=== PATIENT | female | born 1960 | race Caucasian/White ===

== ENCOUNTER 2016-03-08 18:47 | Inpatient (IN) | payer OTHER ==
[2016-03-08] MEDS ORDERED: Lidocaine 2% VISCOUS* 15 ML UDC PO ONE (20:18)
[2016-03-08] MEDS ORDERED: Morphine INJ* 4 MG/ML 1 ML CARPUJECT IV ONE (20:20)
[2016-03-08] MEDS ORDERED: Ondansetron INJ* 2 MG/ML VIAL IV PRN (20:25)
[2016-03-08] MEDS ORDERED: Piperac/Tazob 3.375 gm in NS* 3.375 GM/100 ML BAG IVPB ONE (20:31)
[2016-03-08] MEDS: NS 0.9% 1000 ML* 1,000 ML IV ONE (21:18)
[2016-03-09] MEDS: HYDROmorphone INJ* 1 MG/ML CARPUJECT SYRINGE IV PRN ×2 (04:16→10:32)
[2016-03-09] MEDS: NS 0.9% 1000 ML* 1,000 ML IV SCH (07:00)
[2016-03-09 07:23] LABS: Hematocrit 35 % (35-47); Hemoglobin 11.3 g/dl (12.0-16.0); Mean Corpuscular HGB Conc 32 g/dl (31-36); Mean Corpuscular Hemoglobin 26 pg (27-31); Mean Corpuscular Volume 79 fL (80-97); Mean Platelet Volume 7 um3 (7.4-10.4); Red Blood Count 4.44 10^6/ul (4.0-5.4); Red Cell Distribution Width 17 % (10.5-15); White Blood Count 13.9 10^3/ul (3.5-10.8)
[2016-03-09 07:51] LABS: BUN/Creatinine Ratio 28.6 (8-20); Calcium 7.7 mg/dL (8.6-10.3); EGFR Non-African American 130.6 (>60); Potassium 3.2 mmol/L (3.5-5.0)
[2016-03-09] MEDS: Piperac/Tazob 3.375 gm in NS* 3.375 GM/100 ML BAG IVPB SCH ×3 (08:43→20:31)
[2016-03-09] MEDS ORDERED: Influenza VAC *QUAD* 2016-17* 0.5 ML SYRINGE IM ONE (09:00)
--- NOTE | 2016-03-09 10:54 | HP ---
CC: [facility] DATE OF ADMISSION: 03/09/2016. CHIEF COMPLAINT: Abdominal pain, nausea and vomiting. HISTORY OF PRESENT ILLNESS: The patient is a 55-year-old female who has usually been in fairly good health, who presented to the [facility] with approximately one week of nausea and vomiting. She had had intermittent diarrhea through that period as well. She has had abdomina l cramping and bloating. She has not had an accident, injury or trauma. She does not have a history of chronic abdominal problems. Nothing like that runs in the family either. No one else at home i s similarly ill. PAST MEDICAL HISTORY: Benign. No chronic medical illness. PAST SURGICAL HISTORY: She has had sections in the past without complication. MEDICATIONS: She denies regular medication. ALLERGIES: SHE QUOTES AN ALLERGY TO ERYTHROMYCIN. It happened a long time ago, she does not know w hat the reaction was, but does not think it was anaphylaxis or anything that serious. FAMILY HISTORY: Reveals no Crohn's disease or other GI problems. No bleeding tendencies or anesthe fredy reactions. No major chronic medical illnesses. SOCIAL HISTORY: She is and is currently a nonsmoker, but did smoke years ago. She is not a n alcohol drinker. She does not use any drugs or illicit substances. REVIEW OF SYSTEMS: Multiple system review is negative for any heart pain, chest pain, angina pain, or irregular heart beat. No emphysema, bronchitis, or other chronic lung disease. No hepatobiliary disease. No diabetes, thyroid, or other endocrine. No major GI history. No Crohn's disease, coli tis, or anything of the sort. No major history, other than the sections. She does admi t to having had abscesses in the anal area. She had one drained at [place] several months ago. She h as had recurrent abscesses there, most of which have spontaneously drained some fluid, although of l ate it has not been painful for draining any kind of pus. She denies any neuro, psych, or musculosk eletal issues. PHYSICAL EXAMINATION GENERAL: She is a well-developed, well-nourished appearing female consistent with stated age. She does not appear acutely ill. SKIN: Warm and well-perfused. She is not diaphoretic. She is not jaundiced. VITAL SIGNS: Temperature 98, pulse 89 and regular, respirations 16 unlabored, O2 saturation 96 perc ent, blood pressure 103/54. NECK: Without adenopathy. LUNGS: Clear bilaterally. HEART: Regular. I do not appreciate any abnormal sounds. ABDOMEN: Slightly distended, soft, minimally diffusely tender, not very impressive at all. She wong s have a nasogastric tube that has been in place all night. EXTREMITIES: Well-perfused and without edema. RECTAL: In the perianal area, she does not have any sign of abscess or inflammation, but one can se en on the right side the site of previous drainage. LABORATORY STUDIES: Reveal that her white blood count was elevated at 23,000 at [facility], it is down to 14,000 this morning. She has slightly microcytic indices and she does have a left sh ift. Her electrolytes are relatively normal. Her potassium is slightly decreased at 3.2 and her ayan al function is normal. Her liver chemistries at [facility] were normal. Her urinalysis at [facility] showed a few blood cells and was dip positive for bilirubin and some bacteria. Blo od cultures were sent and lactic acid was 1.2. I have reviewed her CT scan which shows evidence of a small bowel obstruction with a transition point in the terminal ileum. There is inflammatory guzmán ge in that region and what appears to be a fistulous tract extending down the right perianal area. IMPRESSION: Mxctl-boj-gsoa-old female with evidence of small bowel obstruction ongoing for more lolita n a week now with a longer standing perianal abscess and an apparent fistula from the region of the terminal ileum. I have concerned about the possibility of this being Crohn's disease, although appendicitis is also within the differential. I did discuss the case with Dr. Kervin Zaragoza, who will see her in consultation regarding potential Crohn's disease; however, I think she will need a laparotomy to relieve the bowel obstruction and in itiate therapy and make a diagnosis. [id number]/[facility] #: [id number]
--- NOTE | 2016-03-09 12:47 | CONS ---
GASTROENTEROLOGY CONSULT: DATE: 03/09/16 - ROOM #ICU-09 REFERRING PHYSICIAN: Jayesh Rowley* REASON FOR CONSULT: A 55-year-old woman with 9 days of nausea and vomiting and diarrhea, presenting to the [facility] with small bowel obstruction and a draining right perianal fistula with suspected Crohn's disease. HISTORY: This 55-year-old woman started having vomiting and diarrhea concurrently around 9 days ago. There was no fever and no bleeding. She did feel flushed and feverish one night but that passed. She did not seek any medical attention until last night and she felt weak. She last had a bowel movement 3 days ago. She has not passed any gas since then. She continued vomiting. She went to the [facility] and CT scan showed a transition point in the terminal ileum. There is no obvious abscess. That study is being sent over but has not yet been reviewed. She states her usual bowel pattern is every other day and sometimes she will go 3 or 4 days and generally just deals with it by drinking extra fluids. She is on a low carb diet to help her lose weight. There are no other exclusions. She has never had anything like this before and specifically denies any vomiting episodes before. She did develop a swelling in her right buttock 6 months ago and went to the [place] where it was lanced. She was given 10 days of antibiotics but did not seek any followup care. PAST MEDICAL HISTORY: 1. Ex-smoker - quitting 10 years ago. 2. Status post C-sections x3; 29, 28, and 18 years ago. FAMILY HISTORY: No history of bowel disease she is aware of. Father was a smoker, had bladder cancer and of lung cancer. Her mother is alive and well. SOCIAL HISTORY: She is , is trying to help her lose weight. 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 She has three siblings and she is the second of four. REVIEW OF SYSTEMS: She has not had a primary physician. She said she has always been fine. No history of skin problems, neurologic issues, palpitations , syncope, chest pain, chronic heartburn, weight loss, hemoptysis, bleeding difficulties or urinary difficulties. PHYSICAL EXAM: She is a slender, middle-aged woman with an NG tube in place, afebrile. She has no adenopathy. Skin appears normal. HEENT exam is unremarkable. Her lungs are clear and heart sounds are regular. Breast and pelvic exams are deferred. The abdomen is symmetric, mildly rounded, fairly silent, no bowel sounds heard. The NG tube is in place. The abdomen is firm but without focal tenderness or guarding. With an aide present, perianal inspection shows bloody purulent liquid apparently emanating from a fistula, it is open about 5 to 6 cm lateral to the anal verge on the right. There is no fluctuance or swelling there. There is a small 1-cm skin tag at the anal opening. Digital rectal is tolerated well and the rectum is full of soft stool , medium brown, and an area from the middle submitted for Hemoccult. Rectal is limited as rectum is full. Extremities show no abnormality. DIAGNOSTIC STUDIES/LAB DATA: CT scan - review is pending. Labs - in the [facility], white count 22, hemoglobin 14.2, hematocrit 43, MCV 78, platelets 633. Albumin 2.8. Transaminases normal. AST 18, ALT 14, bilirubin 0.6, alkaline phosphatase 105. BUN 33, creatinine 0.9. Sodium 126. IMPRESSION: This 55-year-old woman presented to the [facility] with a 9-day illness marked by nausea and vomiting. She was profoundly dehydrated with a low sodium and an anemia, which is microcytic, and likely will be much lower after rehydration. Iron deficiency with anemia of chronic disease in combination suspected and w/u can be pursued in detail after this bowel obstruction dealt with. An NG tube has been placed and she is doing better in regards to nausea and vomiting but still has passed nothing from below and is thus still obstructed. Given that this was preceded by perianal abscess 6 months ago, the suspicion this represents a Crohn's disease is quite likely true. A right hemicolectomy is under consideration and would probably serve her well. She is not clearly disposed to proactive medical care and medical treatment measures, that would require careful and frequent followup, are not likely to be effective short or residential. [id number]/[facility] #: [id number] [facility]
[2016-03-09] MEDS ORDERED: fentaNYL* 50 MCG/ML 2 ML VIAL (100 MCG VIAL) ONE (13:30)
[2016-03-09] MEDS ORDERED: Midazolam* 1 MG/ML 5 ML VIAL (5 MG) ONE (13:30)
[2016-03-09] MEDS ORDERED: Sodium Bicarbonate 8.4% SYR* 10 ML SYRINGE ONE (14:46)
[2016-03-09] MEDS ORDERED: Phenylephrine IV* 40 MCG/ML 10 ML SYRINGE ONE (14:46)
[2016-03-09] MEDS ORDERED: Lidocaine 2% EPI 1:200000 MPF* 20 ML VIAL ONE (14:46)
[2016-03-09] MEDS ORDERED: Ketorolac INJ* 15 MG/ML 1 ML VIAL IV PRN (14:48)
[2016-03-09] MEDS ORDERED: DiMENhydriNATE IV* 50 MG/ML VIAL IV PUSH PRN ×2 (14:48→14:54)
[2016-03-09] MEDS ORDERED: fentaNYL* 50 MCG/ML 2 ML VIAL (100 MCG VIAL) IV PRN (14:54)
[2016-03-09] MEDS ORDERED: EPHEDrine (Pressors)* 50 MG/ML VIAL ONE (14:56)
[2016-03-09] MEDS ORDERED: Ropivacaine 0.2% EPIDURAL* 200 MG/100 ML BAG EPIDURAL SCH (15:00)
[2016-03-09] MEDS ORDERED: Ropivacaine 0.2% EPIDURAL* 200 MG/100 ML BAG EPIDURAL ONE (16:19)
[2016-03-09] MEDS ORDERED: DiMENhydriNATE IV* 50 MG/ML VIAL ONE (16:51)
[2016-03-09] MEDS ORDERED: Ketorolac INJ* 30 MG/ML 1 ML VIAL ONE (16:54)
[2016-03-09] MEDS: Ketorolac INJ* 30 MG/ML 1 ML VIAL IV SCH (16:55)
[2016-03-09] MEDS ORDERED: NS 0.9% 1000 ML* 1,000 ML IV ONE (18:20)
[2016-03-09] MEDS ORDERED: Hetastarch 6%* GIVE 500 ML IV ONE (20:00)
[2016-03-10] MEDS: NS 0.9% 1000 ML* 1,000 ML IV SCH ×4 (01:10→20:29)
--- NOTE | 2016-03-10 02:06 | OP ---
CC: Jayesh Rowley MD; Kervin Zaragoza MD; [facility] OPERATIVE REPORT: DATE OF OPERATION: 03/09/16 DATE OF : 58 SURGEON: Jayesh Rowley MD APARTMENT RENTAL CLERK: ADITYA Harris ANESTHESIOLOGIST: Dr. Escobar. ANESTHESIA: General and epidural anesthesia. PRE-OP DIAGNOSIS: Small bowel obstruction with enterocutaneous fistula. POST-OP DIAGNOSIS: Small bowel obstruction with enterocutaneous fistula. OPERATIVE PROCEDURE: Laparotomy, resection of ileocolon with anastomosis, takedown of enterocutaneous fistula, peritoneal lavage, and exploration of external fistulous tract. DESCRIPTION OF PROCEDURE: The patient was supine on the operating room table. After adequate general and epidural anesthesia, compression stockings, Gómez Hugger warmer, and intravenous antibiotics were already given; examination of the perineum revealed an external fistulous opening to the right of the anal canal. This was opened up at the skin to about 2 cm across with copious purulent fluid forthcoming. It was purulent and stool stained. Exploration digitally revealed that the tract went in about 8 cm with a width of over a centimeter and then hard fibrotic region was encountered. There was also an exit site on the mid right thigh posteriorly overlying the hamstring. It was 1 cm exit site, which appeared to be an additional fistulous opening. This extended in only about 2 cm. After doing this, the patient was kept supine and the abdomen was prepped with antiseptic and draped in a sterile fashion. A midline incision was created from just above the pubis to just above the umbilicus. Dilated small bowel to about 6 cm was identified and this was exteriorized and there was a loop of small bowel down into the pelvis adherent into a dense fibrotic mass, which appeared to be the source of the obstruction. This was maybe 8 cm from the ileocecal valve. The intervening segment was inflamed and thick walled. The ileocecal valve region was thick walled and inflamed, but the lateral aspect of the cecum was perfectly normal. Normal appendix was identified. This was adherent down to the tube and ovary, which were taken off the inflammatory mass. The inflammatory mass was peeled out of the pelvis. Right ureter was examined and was out of harm's way. There appeared to be a perforation at the region of the ileocecal valve. The terminal ileum was quite thickened and edematous. They did not have the typical creeping fat of Crohn disease. Mesentery was quite thickened and with enlarged adenopathy. It was not sure what the underlying pathology was, but it was felt that ileocecal resection was warranted. The right colon was mobilized all the way up to the hepatic flexure. The site of resection beyond the hepatic flexure was identified. This was chosen based on the vascularity. The bowel was divided with a CLIFTON stapler. Mesentery was incrementally clamped, cut , and ligated. The large vessels being suture ligated. The very terminal ileum even proximal to the area of obstruction was congested and purple and it was felt that the mesentery there was thickened and enlarged, was maybe occluding some venous return into the ileocolic vessels. Therefore, approximately 20 to 30 cm of small bowel was resected to an area that appeared to have good vascularity. Anastomosis was created using CLIFTON 80 stapler. Note that the small bowel was suctioned out to relieve some of the distention prior to creating an anastomosis. The resultant anastomosis was closed with a TA 60 blue stapler. The corners were tucked in with 3-0 silk sutures, which were also used to reinforce the healed anastomosis. The mesentery was closed with 3- 0 Vicryl. Copious irrigation with about 3 L of warm saline solution was carried out. The operative field was nicely hemostatic. Free fluid was suctioned out and tongue of omentum was mobilized from the splenic flexure across to the middle colic region and tongue of omentum was mobilized down towards the pelvis. This was tucked in adjacent to the sigmoid colon and down behind the uterus into the area, where the suspected fistula was. The fistula could not directly be visualized. Everything in that region was just densely fibrotic. The sigmoid colon was adherent down over the cecum into this area, but did not seem to be the primary source of the problem rather seem to be an innocent bystander, just being inflamed and adherent on its right posterior aspect. The remainder of the sigmoid looked pristine. Therefore, this was not dissected up. It was left adherent down over the sacrum. Everything was in good position. Omentum was used to cover the bowel as well for closure. Midline fascia was closed using running #1 Polysorb. Adipose was well irrigated and skin closed with nabeel, followed by sterile dressing. She tolerated the procedure well was awakened and brought to the recovery in good condition. There were no complications and no drains. Pathologic specimen is ileocolic resection. Sponge and instrument counts correct. Estimated blood loss 100 mL. [id number]/[facility] #: [id number] [facility]
[2016-03-10] MEDS: HYDROmorphone INJ* 1 MG/ML CARPUJECT SYRINGE IV PRN ×6 (03:00→20:30)
[2016-03-10] MEDS: Ketorolac INJ* 30 MG/ML 1 ML VIAL IV SCH ×2 (03:12→09:16)
[2016-03-10] MEDS: Piperac/Tazob 3.375 gm in NS* 3.375 GM/100 ML BAG IVPB SCH ×4 (03:15→21:16)
[2016-03-10] MEDS: EPHEDrine (Pressors)* 50 MG/ML VIAL IV PUSH PRN ×2 (04:37→04:58)
[2016-03-10] MEDS ORDERED: HETASTARCH 6% IV PRN (05:10)
[2016-03-10 05:35] LABS: Hematocrit 35 % (35-47); Hemoglobin 11.1 g/dl (12.0-16.0); Mean Corpuscular HGB Conc 32 g/dl (31-36); Mean Corpuscular Hemoglobin 25 pg (27-31); Mean Corpuscular Volume 81 fL (80-97); Mean Platelet Volume 8 um3 (7.4-10.4); Red Blood Count 4.36 10^6/ul (4.0-5.4); Red Cell Distribution Width 17 % (10.5-15); White Blood Count 12.4 10^3/ul (3.5-10.8)
[2016-03-10 05:36] LABS: Add Diff/Slide Review? Slide Review Added; Comments Flag Yes
[2016-03-10 05:50] LABS: BUN/Creatinine Ratio 22.5 (8-20); Calcium 6.8 mg/dL (8.6-10.3); EGFR African American 109.5 (>60); EGFR Non-African American 85.2 (>60); Potassium 3.1 mmol/L (3.5-5.0)
[2016-03-10 06:08] LABS: Immature Granulocytes 29 % (0-9); Myelocytes % 1 % (0-1); Neutrophil % 63 % (38-83); RBC Morphology Normal (Normal); Reactive Lymph % 2 % (0-6)
--- NOTE | 2016-03-10 08:39 | PN ---
Progress Note - Progress Note SOAP: Subjective: Pt seen and examined. Case reviewed, including CT and labs. Overnight events noted. Positive appetite. poor U/o; received multiple boluses. Remains tachycardic. Epidural held. Objective: AF tachycardic, hypostensive A and o x 3 lungs decre BS b/l abdo: soft/mild distension/ minimal tenderness. dressing cdi no calf tenderness labs noted Assessment: POD1 ex lap R colectomy, oliguric, hypotensive. volume depletion vs sepsis Plan: ice chips OOB, IS GI, DVT prop labs in am
[2016-03-11] MEDS ORDERED: NS 0.9% 1000 ML* 1,000 ML IV ONE ×2 (01:00→03:45)
[2016-03-11] MEDS: NS 0.9% 1000 ML* 1,000 ML IV SCH ×2 (01:18→05:08)
[2016-03-11] MEDS: Piperac/Tazob 3.375 gm in NS* 3.375 GM/100 ML BAG IVPB SCH ×3 (02:53→18:15)
[2016-03-11 04:31] LABS: Hematocrit 36 % (35-47); Mean Corpuscular HGB Conc 31 g/dl (31-36); Mean Corpuscular Hemoglobin 25 pg (27-31); Mean Corpuscular Volume 81 fL (80-97); Mean Platelet Volume 8 um3 (7.4-10.4); Red Cell Distribution Width 17 % (10.5-15); White Blood Count 12.2 10^3/ul (3.5-10.8)
[2016-03-11 04:33] LABS: Add Diff/Slide Review? Slide Review Added; Comments Flag Yes
[2016-03-11 04:42] LABS: BUN/Creatinine Ratio 36.2 (8-20); Calcium 6.7 mg/dL (8.6-10.3); EGFR African American 138.3 (>60); EGFR Non-African American 107.5 (>60); Potassium 4.2 mmol/L (3.5-5.0)
[2016-03-11 04:59] LABS: Immature Granulocytes 51 % (0-9); Metamyelocytes % 6 % (0-2); Myelocytes % 3 % (0-1); Neutrophil % 41 % (38-83); Reactive Lymph % 1 % (0-6)
[2016-03-11 05:00] LABS: Burr Cells 2+; Toxic Granulation 1+
[2016-03-11] MEDS: HYDROmorphone INJ* 1 MG/ML CARPUJECT SYRINGE IV PRN (05:39)
[2016-03-11] MEDS ORDERED: Metoprolol Tartrate IV* 1 MG/ML 5 ML VIAL IV ONE (06:05)
[2016-03-11 06:45] LABS: Hematocrit 36 % (35-47); Hemoglobin 11.3 g/dl (12.0-16.0); Mean Corpuscular HGB Conc 31 g/dl (31-36); Mean Corpuscular Hemoglobin 26 pg (27-31); Mean Corpuscular Volume 81 fL (80-97); Mean Platelet Volume 8 um3 (7.4-10.4); Red Blood Count 4.41 10^6/ul (4.0-5.4); Red Cell Distribution Width 17 % (10.5-15)
[2016-03-11 07:00] LABS: Add Diff/Slide Review? Manual Diff Added; Comments Flag Yes
[2016-03-11 07:06] LABS: ALT 16 U/L (7-52); AST 29 U/L (13-39); Alkaline Phosphatase 52 U/L (34-104); Anion Gap 7 mmol/L (2-11); BUN/Creatinine Ratio 35.6 (8-20); Blood Urea Nitrogen 21 mg/dL (6-24); CO2 Carbon Dioxide 19 mmol/L (22-32); Chloride 113 mmol/L (101-111); EGFR African American 135.6 (>60); EGFR Non-African American 105.4 (>60); Magnesium 1.1 mg/dL (1.9-2.7); Potassium 4.4 mmol/L (3.5-5.0); Sodium 139 mmol/L (133-145); Total Protein < 3.0 g/dL (6.4-8.9)
[2016-03-11 07:18] LABS: Albumin 1.3 g/dL (3.2-5.2); Calcium 6.4 mg/dL (8.6-10.3); Globulin 1.7 g/dL (2-4); Glucose 38 mg/dL (70-100)
[2016-03-11] MEDS ORDERED: Magnesium Sulf 4 GM/100 ML IV* 4,000 MG/100 ML BAG IVPB ONE ×2 (07:30→13:00)
[2016-03-11] MEDS: D5NS 0.9% 1000 ML BAG* 1,000 ML IV SCH ×2 (07:34→13:48)
[2016-03-11 08:19] LABS: PCO2 Arterial 34 mmHg (35-45)
[2016-03-11] MEDS: metroNIDAZOLE IV 500 MG/100ML* 500 MG/100 ML BAG IVPB SCH ×2 (08:36→21:33)
[2016-03-11 08:43] LABS: Urine Bacteria Absent (Absent); Urine Bilirubin 2+ (Negative); Urine Glucose Negative (Negative); Urine Nitrite Negative (Negative)
[2016-03-11 09:47] LABS: Fibrinogen 531 mg/dL (110.8-404.3); Schistocytes ABSENT
[2016-03-11] MEDS ORDERED: Phytonadione INJ (Adult)* 10 MG/ML 1 ML AMP IV ONE (10:11)
--- NOTE | 2016-03-11 10:21 | PN ---
Progress Note - Progress Note SOAP: Subjective: Pt seen and examined. 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 Hospitalist service consulted. She is fatigued. No flatus, no BM in 24hrs, positive burping, no appetite. Pt has received approx 20L in 3days. Pt states she hasn't eaten anything for 10 days. SHe c/o SOB, fatigue, but no abdominal pain. Hospitalist has ordered FFP for elevated INR; pt will be transferred to ICU. Objective: Temp Pulse Resp BP Pulse Ox 97.7 F 142 38 115/66 97 03/11/16 07:26 03/11/16 07:26 03/11/16 07:30 03/11/16 07:26 03/11/16 07:26 on O2 NC Intake & Output 03/09/16 03/10/16 03/11/16 03/12/16 06:59 06:59 06:59 06:59 Intake Total 1281 38200 7789 Output Total 600 800 485 Balance 681 16691 7304 Weight 135 lb Intake: IV Fluids 1063 06323 6793 Hetastarch 500 LR 5200 LR with 40KCl 3012 NS 3933 3781 IVPB 218 100 426 ABX - ZOSYN 109 100 426 Oral 0 0 570 Output: NG Tube Drainage Amount 150 150 Urine 450 380 Sommer 270 485 Other: # Bowel Movements 0 a and o x 3, mild respiratory distress. lungs decreased BS b/l abdo: soft/distended, tender on deep palpation over incision and RLQ dressing removed, no erythema Rectal: pos stool, no masses, nontender Packing replaced at 2 abscess cavities (no evidence of undrained collections no calf tenderness, well perfused, edematous Labs noted CT: 03/09 reveiwed again with radiologist; rectosigmoid wnl Assessment: POD 2 R hemicolectomoy, path pending, lonstanding perirectal abscesses; third spacing, malnutrition. Sepsis Plan: transfer to ICU triple lumen cath strict I/os wound care NPO, posible NGT if vomits consider TPN abx
[2016-03-11] MEDS ORDERED: Phytonadione INJ (Adult)* 10 MG in NS 0.9% 50 ML* 50 ML IV ONE (11:00)
[2016-03-11 11:13] LABS: Albumin 2.5 g/dL (3.2-5.2); Direct Bilirubin 0.1 mg/dL (0.03-0.18); Globulin 2.9 g/dL (2-4); Indirect Bilirubin 0.3 mg/dL (0.3-1.0); Magnesium 1.8 mg/dL (1.9-2.7); Total Bilirubin 0.4 mg/dL (0.2-1.0); Total Protein 5.4 g/dL (6.4-8.9)
[2016-03-11] MEDS ORDERED: Thiamine IV* 100 MG/ML 2 ML VIAL IV ONE (12:37)
[2016-03-11] MEDS ORDERED: Cyanocobalamin INJ * 1,000 MCG/ML VIAL 1 ML VIAL IM ONE (13:00)
--- NOTE | 2016-03-11 13:17 | CONSULT ---
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 Underwent resection of ileocolon with primary anastamosis and take down of enterocutaneous fistula. She remains tachy in post operative setting and has recieved considerable amount of IVF to no avail. Today her labs revealed significant synthetic liver failures and she remains tachycardic and tachypnic and was transferred to ICU. REVIEW OF SYSTEMS: As per HPI. Currently pt feeling fatigued, but acute in ok spirits; no pain just feels sore. Breathing does feel shallow. PAST MEDICAL HISTORY: As per HPI. MEDICATIONS: Reviewed. ALLERGIES: Erythromycin SOCIAL HISTORY: , quit tobacco previously, actually healthy diet habits. FAMILY HISTORY: Noncontributory at present. PHYSICAL EXAM: nontoxic appearing Vital Signs: Reviewed. HR 143. SBP 150s. RR up to 30. afeb Neurologic: communicating, nonfocal. HEENT: anicteric, mm dry, thin face. Cardiovascular: dtachy, no appreciable m Respiratory: rapid and shallow but otherwise would have normal phase ratio Abdomen: anasacra; incision clean and looks healthy. no masses Extremities: significant edema, especially in thighs Access: per LABS: Reviewed. Laboratory Last Values WBC 13.0 10^3/ul (3.5-10.8) H 03/11/16 06:08 RBC 4.41 10^6/ul (4.0-5.4) 03/11/16 06:08 Hgb 11.3 g/dl (12.0-16.0) L 03/11/16 06:08 Hct 36 % (35-47) 03/11/16 06:08 MCV 81 fL (80-97) 03/11/16 06:08 MCH 26 pg (27-31) L 03/11/16 06:08 MCHC 31 g/dl (31-36) 03/11/16 06:08 RDW 17 % (10.5-15) H 03/11/16 06:08 Plt Count 234 10^3/ul (150-450) 03/11/16 06:08 MPV 8 um3 (7.4-10.4) 03/11/16 06:08 Immature Gran % (Auto) 51 % (0-9) H 03/11/16 04:23 Neut % (Auto) 97.2 % (38-83) H 03/11/16 06:08 Lymph % (Auto) 2.3 % (25-47) L 03/11/16 06:08 [place] % (Auto) 0.4 % (1-9) L 03/11/16 06:08 Eos % (Auto) 0 % (0-6) 03/11/16 06:08 Baso % (Auto) 0.1 % (0-2) 03/11/16 06:08 Absolute Neuts (auto) 12.9 10^3/ul (1.5-7.7) H 03/11/16 06:08 Absolute Lymphs (auto) 0.3 10^3/ul (1.0-4.8) L 03/11/16 06:08 Absolute Monos (auto) 0 10^3/ul (0-0.8) 03/11/16 06:08 Absolute Eos (auto) 0 10^3/ul (0-0.6) 03/11/16 06:08 Absolute Basos (auto) 0 10^3/ul (0-0.2) 03/11/16 06:08 Absolute Nucleated RBC 0.01 10^3/ul 03/11/16 06:08 Neutrophils % 41 % (38-83) 03/11/16 04:23 Band Neutrophils % 42 % (0-8) H 03/11/16 04:23 Lymphocytes % 4 % (25-47) L 03/11/16 04:23 Reactive Lymphs % 1 % (0-6) 03/11/16 04:23 Monocytes % 3 % (0-13) 03/11/16 04:23 Metamyelocytes % 6 % (0-2) H 03/11/16 04:23 Myelocytes % 3 % (0-1) H 03/11/16 04:23 Nucleated RBC % 0 03/11/16 06:08 Toxic Granulation 1+ 03/11/16 04:23 Normal RBC Morphology Not Reportable 03/11/16 04:23 Angel Cells 2+ 03/11/16 04:23 Schistocytes Absent 03/11/16 06:09 Hem Pathologist Commnt Cancelled 03/11/16 04:23 Plt Count 234 10^3/ul (150-450) 03/11/16 06:09 INR (Anticoag Therapy) 4.25 (0.89-1.11) H 03/11/16 06:09 APTT 66.7 seconds (26.0-36.3) H 03/11/16 06:09 Fibrinogen 531 mg/dL (110.8-404.3) H 03/11/16 06:09 D-Dimer, Quantitative > 1050 ng/mL (Less Than 230) H 03/11/16 06:09 ABG pH 7.30 (7.35-7.45) L 03/11/16 08:10 ABG pCO2 34 mmHg (35-45) L 03/11/16 08:10 ABG pO2 97 mmHg (80-100) 03/11/16 08:10 ABG HCO3 18.1 mmol/L (19-31) L 03/11/16 08:10 ABG O2 Saturation 96.3 % (95-98) 03/11/16 08:10 ABG Base Excess -8.8 (-2.0-2.0) L 03/11/16 08:10 Sodium 139 mmol/L (133-145) 03/11/16 06:08 Potassium 4.4 mmol/L (3.5-5.0) 03/11/16 06:08 Chloride 113 mmol/L (101-111) H 03/11/16 06:08 Carbon Dioxide 19 mmol/L (22-32) L 03/11/16 06:08 Anion Gap 7 mmol/L (2-11) 03/11/16 06:08 BUN 21 mg/dL (6-24) 03/11/16 06:08 Creatinine 0.59 mg/dL (0.51-0.95) 03/11/16 06:08 Est GFR ( Amer) 135.6 (>60) 03/11/16 06:08 Est GFR (Non-Af Amer) 105.4 (>60) 03/11/16 06:08 BUN/Creatinine Ratio 35.6 (8-20) H 03/11/16 06:08 Glucose 38 mg/dL (70-100) L* 03/11/16 06:08 POC Glucose (mg/dL) 88 mg/dL (74-106) 03/11/16 08:57 Lactic Acid 2.5 mmol/L (0.5-2.0) H* 03/11/16 08:31 Calcium 6.4 mg/dL (8.6-10.3) L* 03/11/16 06:08 Phosphorus 3.0 mg/dL (2.5-5.0) 03/11/16 06:08 Magnesium 1.1 mg/dL (1.9-2.7) L 03/11/16 06:08 Iron 40 ug/dL (50-212) L 03/09/16 06:58 TIBC 176 mcg/dL (250-450) L 03/09/16 06:58 % Saturation 23 % (15-55) 03/09/16 06:58 Unsat Iron Binding 136 ug/dL 03/09/16 06:58 Total Bilirubin 0.40 mg/dL (0.2-1.0) 03/11/16 06:08 Direct Bilirubin 0.10 mg/dL (0.03-0.18) 03/09/16 06:58 Indirect Bilirubin 0.3 mg/dL (0.3-1.0) 03/09/16 06:58 AST 29 U/L (13-39) 03/11/16 06:08 ALT 16 U/L (7-52) 03/11/16 06:08 Alkaline Phosphatase 52 U/L (34-104) 03/11/16 06:08 Total Protein < 3.0 g/dL (6.4-8.9) L 03/11/16 06:08 Albumin 1.3 g/dL (3.2-5.2) L 03/11/16 06:08 Globulin 1.7 g/dL (2-4) L 03/11/16 06:08 Albumin/Globulin Ratio 0.8 (1-3) L 03/11/16 06:08 Vitamin B12 871 pg/mL (180-914) 03/09/16 06:58 Urine Color J[place]elin 03/11/16 08:10 Urine Appearance Cloudy 03/11/16 08:10 Urine pH 5.0 (5-9) 03/11/16 08:10 Ur Specific [place] 1.030 (1.010-1.030) 03/11/16 08:10 Urine Protein 1+(30 mg/dl) (Negative) H 03/11/16 08:10 Urine Ketones 1+ (Negative) H 03/11/16 08:10 Urine Blood 2+ (Negative) H 03/11/16 08:10 Urine Nitrate Negative (Negative) 03/11/16 08:10 Urine Bilirubin 2+ (Negative) H 03/11/16 08:10 Urine Urobilinogen Negative (Negative) 03/11/16 08:10 Ur Leukocyte Esterase Negative (Negative) 03/11/16 08:10 Urine WBC (Auto) 1+(6-10/hpf) (Absent) H 03/11/16 08:10 Urine RBC (Auto) 3+(>10/hpf) (Absent) H 03/11/16 08:10 Urine Bacteria Absent (Absent) 03/11/16 08:10 Urine Glucose Negative (Negative) 03/11/16 08:10 Blood Type A Positive 03/11/16 04:23 Antibody Screen Negative 03/11/16 04:23 IMAGING: Reviewed. MEDICATIONS: Reviewed. 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 Concern for severe prot-calorie nutritional deficiency, as well as vitamin/ mineral store losses, which would have been lost over time from her fistula, malabsorption, and metabolic consumption from chronic infection of low grade abscesses plus minus crohns dz (path pending). D/w pt and her PLAN: Neurologic: stable. pain control as need Cardiovascular: Receiving crystalloid still and ok for now, but given her degree of anasarca will look to back off this ultimately. Intravascular volume can be supplemented with FFP load now and see if we can make any progress. CAn add atc 25% albumin for now to see if we can utilize her interstitial volume. Ailment there is she is still seemingly in an Ebb phase and may remain with difficulty mobilizing compartments. Can 5% albumin if need be too. He tachycardia is going to remain but ensure adequate preload and see if we can't get it to remain under 130s today. Does appear sinus but there is not much variation and would repeat ECG post fluid to ensure this isn't atrial flutter or tach that may be otherwise amendable. Respiratory: Place on HFO2 to allieviate her wob which can certainly exacerbate her hr due to co demand. She is tolerating and compensating but has a long road ahead. Avoid atelectasis and resp fatigue. Abd volume also impeding diaphragmatic expansion. Lungs are not the primary insult. Gastrointestinal: does not seem to have an acute new surgical ailment that I can discern. No pain. Abd same, just ansarca. Did explain to her my worry for anastomotic breakdown and leak if we cannot support her nutrition and healing process and she is at risk for repeat surgeries but wouldn't pursue at present nor CT yet. Synthetic liver function quite deficient, transaminasis and bili fine, and therefore seeming less acute, and more ailment overtime due to deficiencies and if we can supplement Vit K, (likely to need B12 as well) magnesium large body deficit, dextrose and perhaps glucagon as well can correct her INR and glucose. However, it will take time to improve her protein store requirements, and would advocate picc and tpn (although wait on tpn till tomorrow given her acute stage of inflammation) and ultimately in combination with enteral needs to meet her metabolic demands. GI to f/u, with path pending, for potential crohns needs. Does not seem like a infammatory "flare" at this juncture but could consider steroid needs if it arises. Renal/Metabolic: Cr stable, but has considerable interstitial volume. Mag replete today IV. Can hold off on gtt, as corrected calcium not too deplete. f/ u vitamin needs. Would just give B12 and thiamine supplements. Follow Phos daily as at risk for refeeding syndrome. Infectious Disease: on zosyn and flagyl with great coverage. Again, doubt a new acute infection but certainly has some inflamation that will remain and need to support her metabolic and healing demands. Continue as is. Hematology: Unable to hemodilute post volume. Plt dropped due to consumption. Fibrinogen ok. Vit K, ffp and f/u INR tomorrow to ensure liver function. Endocrine: dextrose for now and f/u. Musculoskeletal: oob as able but going to be weak for now Psych/Social: Again pt and expressed understanding Supportive and preventative care as ordered. SUP: ppi VTE prophylaxis: SCDs currently Disposition: ICU Code Status: Full D/w Dr. Vasquez Critical Care Time: 45min F. Agustin Harman, DO
[2016-03-11] MEDS: Albumin Human 25%* 50 ML BTL IV SCH ×2 (13:47→21:42)
[2016-03-11] MEDS: Pantoprazole IV* 40 MG IV SCH (13:49)
--- NOTE | 2016-03-11 15:31 | RAD ---
INDICATION: Short of breath COMPARISON: None TECHNIQUE: An AP portable view obtained at 1500 hours is submitted. FINDINGS: Bones/Soft Tissues: There are no acute bony findings. Right-sided PICC catheter terminating in the superior vena cava Cardiomediastinal: The cardiomediastinal silhouette is normal. Lungs: The examination is expiratory with vascular crowding. There is perihilar infiltrative change. Pleura: There are bilateral effusions. Other: None IMPRESSION: EXPIRATORY EXAMINATION WITH PERIHILAR INFILTRATES AND BILATERAL PLEURAL EFFUSIONS.
[2016-03-11] MEDS ORDERED: D5NS 0.9% 1000 ML BAG* 1,000 ML IV SCH (15:42)
[2016-03-11] MEDS: Diltiazem DRIP* 100 MG/100 ML ADDV.BAG IVPB SCH (20:25)
[2016-03-11] MEDS ORDERED: Iohexol 350* (CONTRAST) 500 ML MDV IV ONE (21:53)
--- NOTE | 2016-03-11 22:39 | CONS ---
INPATIENT CONSULTATION REPORT: DATE OF CONSULT: 03/10/16 ATTENDING PROVIDER: Jayesh Rowley MD. PROVIDER REQUESTING CONSULTATION: Cornelius Vasquez MD, [facility] Surgical Services. REASON FOR CONSULT: Multiple lab derangements and concern for severe sepsis/ disseminated intravascular coagulation. HISTORY OF PRESENT ILLNESS/HOSPITAL COURSE: Please see the H and P by Dr. Jayesh Rowley and GI consultation by Dr. Kervin Zaragoza. In brief, Ms. Clifton is a 55- year-old lady with limited formal past medical history, although perhaps limited contact to the healthcare system who was transferred from [facility] to [facility] with abdominal pain, nausea, and vomiting, and a small bowel obstruction with enterocutaneous fistula. The patient was taken to surgery and had her terminal ileum resected with primary anastomosis and removal of an enterocutaneous fistula. The patient was consistently tachycardic and tachypneic in the postop setting with concerning labs including an INR of over 4 with a fairly precipitous drop in her albumin. The hospitalist group was asked for consultation. The patient herself was fairly asymptomatic, although she did feel subjectively short of breath at times. She denied any chest pain. She does complain of abdominal pain but not exquisitely and not out of proportion considering her recent surgery. The patient has multiple lab derangements including a profound leukocytosis with an approximately 50% bandemia as well as already-noted INR greater than 4 with an albumin that fell from 2.8 at admission to 1.3 this morning (over ~ 2 days) TThere was initial concern for disseminated intravascular coagulopathy (DIC) but a stat fibrinogen revealed no decrement in that lab, which essentially took that off the list. As this workup proceeded, an intensive care unit consultation was requested. The patient's antibiotics were urgently expanded with the addition of Flagyl on top of Zosyn. The patient is being aggressively hydrated but there is ongoing concern for poor urine output and possibly ongoing sepsis versus anasarca/third-spacing or some combination of the two. The patient is in agreement with transfer to the ICU for further consideration of these issues. PAST MEDICAL HISTORY: As per the HPI. MEDICATIONS: 1. Zosyn by pharmacy dosing - 3.375 four times daily. 2. Normal saline ongoing. 3. Status post hetastarch administration on March 09. ALLERGIES: ERYTHROMYCIN. FAMILY HISTORY: Noncontributory. SOCIAL HISTORY: . Remote history of tobacco, not active now. PHYSICAL EXAM: Vitals reviewed. Heart rate in the 130s to 150s. Breathing in the high 30s. Blood pressure low 100s/50s, high 90s on 2 L nasal cannula. In general, the patient is a chronically ill appearing woman who appears older than her stated age. HEENT: Oropharynx is clear. Mucous membranes are dry. Neck veins are flat. Chest is clear bilaterally. Abdomen: Appropriately tender postoperatively. Skin: Dry and intact. Abdomen: Has postop dressing. Extremities: Without clubbing or cyanosis, but edema is noted, but not massive. DIAGNOSTIC STUDIES/LAB DATA: White blood cell count is 12.2 with 97% neutrophilia with 42% bands, 6% metamyelocytes, and 3% myelocytes. Her hemoglobin is stable at 11, platelets have fallen from 415 down to 241. Her INR was previously unmeasured and came back today at 4.25. Her fibrinogen is actually elevated at 531 with an elevated D-dimer greater than 1000 and the remainder of her coagulation panel pending. Blood gas revealed pH of 7.30/pCO2 of 34/ pO2 of 97. Blood chemistries include bicarb of 19, glucose low at 38 with peripheral recheck at 88 following the initiation of D5, lactic acid 2.5, whole blood calcium 6.4 but albumin was 1.3, total protein less than 3, her magnesium was low at 1.1 and is being repleted, phosphorus is 3. Her LFTs as of March 09 were normal with an AST and ALT of 12 and 7, respectively. Her total bilirubin was 0.4. Iron studies show a 23% saturation with absolute level of 40. Total iron binding capacity is low at 1.76 consistent with low protein stores. Her urinalysis shows 1+ white blood cells, 3+ rbc's, 1+ protein (30 mg/dL). IMPRESSION: Ms. Clifton is 55-year-old female status post ileocolic resection, enterocutaneous fistula and suspected Crohn's disease who has had limited oral intake for 10 days and now has an array of lab findings that are quite concerning and consistent with most likely severe malnutrition and associated diminished liver synthetic function. Ms. Clifton had some findings consistent with disseminated intravascular coagulation but the elevated fibrinogen is not consistent with this and nor is her blood smear and platelet level in the 200s, although that represents a substantial decrease. Her albumin level at 1.3 is further confirmation that she is not synthesizing proteins necessary for clotting and she likely has a profound inflammatory process at play. In terms of her tachypnea and tachycardia that is concerning, especially considering she is third spacing secondary to poor intravascular volume. This is effectively a profound hypovolemic state with the expected hemodynamic consequence of tachypnea and tachycardia as compensatory mechanisms. Accordingly we will aggressively fluid resuscitate the patient including give FFP/colloid replacement, which will duly help her hypercoagulable state and also replenish her intravascular volume. The patient will also receive vitamin K and other vitamins to help any synthetic dysfunction associated with vitamin deficiencies. Her coagulation parameters will be followed. In terms of her profound neutrophilia, she did have known intraabdominal abscesses. She had enterocutaneous fistula and it seems there may be an ongoing underlying inflammatory process (inflammatory bowel disease) at play. The patient is on broad coverage with Zosyn and this was expanded with IV metronidazole and her lactic acid is only 2.5 and will be followed. There was suggestion by the surgical team of perhaps reimaging her pelvis and upper thighs to ensure there is no further abscesses that were not surgically addressed and this would not be a bad idea if she continues to have a profound neutrophilia/sepsis. In terms of her fluid management strategy, this will be deferred to the intensive care team but there was interdisciplinary discussion of perhaps an albumin infusion in addition to the FFP to promote intravascular volume and a protein load. In terms of her malnutrition, she will need parenteral nutrition in the near future. The exact timing will be deferred to the intensive care team and I agree it should wait until after her acute inflammatory state has subsided but full recovery will be contingent on adequate protein stores, so this is of the utmost importance. Pathology should be closely followed and perhaps an antiinflammatory strategy employed as per the GI team and I know they are closely following. Other recommendations will be based on the patient's clinical progress. For more details, please see the ICU consultation by Dr. Hammer that is in process at the same time of this evaluation. TIME SPENT: The total time taken to evaluate Ms. Clifton was 75 minutes, with greater than half the time at the bedside going over the clinical plans including transfer to the ICU, peripherally inserted central line placement, need for enteral nutrition at some point, fluid resuscitation, expansion of her antibiotics and other decisions described earlier. [id number]/[facility] #: [id number] EPI
--- NOTE | 2016-03-11 22:55 | RAD ---
INDICATION: Right hemicolectomy. Evaluate for pulmonary embolus COMPARISON: Chest x-ray March 11, 2016; external CT March 08, 2016 TECHNIQUE: Axial source images were obtained from the thoracic inlet to the symphysis pubis following administration of intravenous contrast with CT angiogram technique 100 mL Omnipaque 350 was utilized. Coronal and sagittal reconstructed images were acquired. CHEST FINDINGS: Neck/thyroid: The visualized neck to include the thyroid appear normal. Chest wall: There are no acute abnormalities of the bony thorax or chest wall. A right-sided PICC catheter terminates in the superior vena cava There is no supraclavicular, infraclavicular, or axillary lymphadenopathy. Lungs : There are large bilateral infiltrates with bibasilar consolidative changes with resultant hypoventilation there is minor lingular airspace disease with air bronchograms. Cardiomediastinal structures: The heart is normal in size. There is no pericardial effusion. There is no evidence of aortic aneurysm or dissection. There is no CT evidence of acute pulmonary embolic disease. There is no mediastinal or hilar adenopathy. The esophagus appears normal. Pleura : Large bilateral pleural effusions as noted above.. ABDOMINAL/PELVIC FINDINGS: Liver: The liver is enlarged with diffuse decreased attenuation likely related to hepatic steatosis. There are tiny hypodensities which on a statistical basis likely represent cysts or hemangiomas. These are in the 5 mm range. There is no ductal dilatation. Gallbladder: There are no calcified gallstones. There is no evidence of wall thickening or pericholecystic fluid. Spleen: The spleen is normal in size. There are no masses. Pancreas: There is no evidence of pancreatic mass or ductal dilatation. Adrenal glands: There is no evidence of adrenal mass. Kidneys: The kidneys are normal in size and position. There are prompt nephrograms and there is prompt excretion bilaterally. There are subcentimeter cysts in each kidney.. There is a nonobstructive 3 mm mid pole right renal calculus. Adenopathy: There is no evidence of adenopathy by size criteria. Fluid collections: There is a large amount of free fluid throughout the abdomen and pelvis. There is new loculated free fluid in the minor pelvis on the left. Microabscesses in the perirectal space are not confirmed on today's study. There is subcutaneous edema compatible with anasarca. Vessels:The aorta and IVC appear normal GI tract: The esophagus is dilated and fluid-filled. The stomach is dilated and fluid-filled as well. The small bowel is fluid-filled and dilated. There is diffuse mucosal thickening of the entire small bowel. There is interval right hemicolectomy. The remaining colon is normal in caliber. There is residual contrast in the distal colon which is decompressed there may be some bowel wall thickening of the sigmoid colon. The presumed enterocutaneous fistulas are less well delineated on this examination. There remains significant and increased subcutaneous emphysema which is primarily in the right gluteal region. There are small pockets of intraluminal air which is consistent with recent surgical intervention. Pelvic organs: The uterus and adnexa appear slightly Bladder: There are no bladder masses. Abdominal and pelvic soft tissues: The extraperitoneal abdominal and pelvic soft tissues appear normal.. Osseous structures: There are no acute osseous findings. IMPRESSION: 1. No CT evidence of acute pulmonary embolic disease 2. Large bilateral pleural effusions and bibasilar consolidative changes. 3. Interval right hemicolectomy. 4. Large amount of free fluid. Anasarca 5. Intraperitoneal free air compatible with recent surgery. Presumed enterocutaneous fistulous tracts are less defined. Increased subcutaneous emphysema in the right gluteal region.
[2016-03-11 23:47] LABS: BUN/Creatinine Ratio 35.4 (8-20); Calcium 7.2 mg/dL (8.6-10.3); EGFR African American 172.1 (>60); EGFR Non-African American 133.8 (>60); Magnesium 2.3 mg/dL (1.9-2.7); Potassium 3.5 mmol/L (3.5-5.0)
[2016-03-12] MEDS: Piperac/Tazob 3.375 gm in NS* 3.375 GM/100 ML BAG IVPB SCH ×5 (00:28→23:36)
[2016-03-12] MEDS: Albumin Human 25%* 50 ML BTL IV SCH ×4 (01:10→19:30)
[2016-03-12] MEDS ORDERED: Furosemide IV* 10 MG/ML VIAL (40 MG) IV SLOW PU ONE ×2 (03:46→16:47)
[2016-03-12] MEDS ORDERED: Furosemide IV* 10 MG/ML VIAL (40 MG) ONE (03:48)
[2016-03-12] MEDS: Diltiazem DRIP* 100 MG/100 ML ADDV.BAG IVPB SCH (04:07)
[2016-03-12 05:13] LABS: Hematocrit 26 % (35-47); Hemoglobin 8.2 g/dl (12.0-16.0); Mean Corpuscular HGB Conc 32 g/dl (31-36); Mean Corpuscular Hemoglobin 25 pg (27-31); Mean Corpuscular Volume 80 fL (80-97); Red Blood Count 3.25 10^6/ul (4.0-5.4); Red Cell Distribution Width 17 % (10.5-15); White Blood Count 18.3 10^3/ul (3.5-10.8)
[2016-03-12 05:21] LABS: Comments Flag Yes
[2016-03-12 05:22] LABS: Add Diff/Slide Review? Slide Review Added
[2016-03-12 05:25] LABS: Albumin 2.9 g/dL (3.2-5.2); BUN/Creatinine Ratio 34.1 (8-20); Calcium 7.8 mg/dL (8.6-10.3); EGFR African American 190.2 (>60); EGFR Non-African American 147.9 (>60); Globulin 2.1 g/dL (2-4); Magnesium 2.1 mg/dL (1.9-2.7); Phosphorus 2.1 mg/dL (2.5-5.0); Potassium 3.2 mmol/L (3.5-5.0); Total Bilirubin 0.6 mg/dL (0.2-1.0)
[2016-03-12 06:14] LABS: Mean Platelet Volume 9 um3 (7.4-10.4)
[2016-03-12 06:26] LABS: Immature Granulocytes 22 % (0-9); Macrocytosis 1+; Metamyelocytes % 8 % (0-2); Microcytosis 1+; Myelocytes % 2 % (0-1); Neutrophil % 73 % (38-83); Spherocytes 1+
[2016-03-12] MEDS ORDERED: Potassium Phosphate IV* 20 MMOLE in NS 0.9% 250 ML* 250 ML IVPB ONE (08:30)
[2016-03-12] MEDS ORDERED: Magnesium Sulfate 4 GM IV IVPB ONE (08:30)
[2016-03-12] MEDS: metroNIDAZOLE IV 500 MG/100ML* 500 MG/100 ML BAG IVPB SCH ×2 (08:51→20:41)
[2016-03-12] MEDS ORDERED: Influenza VAC *QUAD* 2016-17* 0.5 ML SYRINGE IM ONE (09:00)
[2016-03-12] MEDS ORDERED: Norepinephrine 16MCG/ML IVPRE* 4,000 MCG/250 ML BAG IV ONE (09:35)
[2016-03-12] MEDS ORDERED: Propofol* 10 MG/ML 20 ML BTL IV PUSH ONE (09:44)
[2016-03-12] MEDS ORDERED: fentaNYL* 50 MCG/ML 5 ML VIAL (250 MCG VIAL) ONE (09:44)
[2016-03-12] MEDS ORDERED: fentaNYL* 50 MCG/ML 2 ML VIAL (100 MCG VIAL) IV SLOW PU PRN (09:50)
[2016-03-12] MEDS ORDERED: Propofol* 100 ML ONE (09:54)
[2016-03-12] MEDS ORDERED: Albumin Human 5%* 500 ML in PREMIX* 0 ML IV ONE (10:00)
--- NOTE | 2016-03-12 10:39 | RAD ---
INDICATION: Intubation. COMPARISON: Comparison is made with a prior study from March 11, 2016. TECHNIQUE: A portable view of the chest was obtained. FINDINGS: The heart is within normal limits in size. The patient is status post intubation. The endotracheal tube projects over the midline. The catheter tip is at the level of the clavicular heads. There is a nasogastric tube which demonstrates normal course. There is a PICC present on the right side. The catheter tip projects over the right atrium. There are bilateral perihilar and bibasilar infiltrates which have progressed slightly and small bilateral pleural effusions. IMPRESSION: BILATERAL INFILTRATES AND PLEURAL EFFUSIONS DEMONSTRATING SLIGHT PROGRESSION MOST CONSISTENT WITH CONGESTIVE HEART FAILURE OR PNEUMONIA.
--- NOTE | 2016-03-12 10:57 | PN ---
Progress Note - Progress Note Note: CRITICAL CARE MEDICINE DATE: 03/12/16 TIME: 9:10 SUBJECTIVE: Patient seen and examined. Tolerating but utilizing bipap overnight. Back to HFO2 this am but low sats into 70s. Talkative and cooperative. Communicating but understands she is quite fatigued. No complaints of pain other then discharge from posterior R thigh fistula site. PHYSICAL EXAM: Vital Signs: Reviewed. HR 100s but on cardizem gtt. SBP 100s. RR still 30. afeb overnight; good uout and response to lasix Neurologic: communicating, nonfocal. HEENT: anicteric, mmm Cardiovascular: tachy, no appreciable m Respiratory: rapid and shallow with dec bs bl; no rales Abdomen: anasacra; incision clean. Extremities: significant edema Access: picc LABS: Reviewed. IMAGING: Reviewed. MEDICATIONS: Reviewed. 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 Severe prot-calorie nutrition Vitamin, electrolyte deficiency Sepsis on admission sec to abd sepsis as above Acute hypoxic resp failure B/l pleural effusions, compression atelectasis Mild septic/hypoxic encephalopathy Coagulopathy - corrected with Vit K, ffp Thrombocytopenia of sepsis Hypoglycemic event PLAN: we discussed intubation due to anasarca, pleural effusions with compression atelectasis and remaining high metabolic demands in poor nutritional state. We discussed potential reversibility if intubation improves lung function and decreases some large component of her metabolic demands associated with wob and allow abd healing process. We also discussed potential of ongoing smoldering abd sepsis that may yet again need exploration if she is unable to improve or worsens, and would consider such entity at tertiary care center. She would choose [facility]. We also discussed with her via phone who will be in later and we can re-sort out after equilibration post intubation. Neurologic: stable. pain control. will need propofol gtt for sedation and can keep at Rass -1 and she may be able to tolerate at low level and stay awake for this process. Cardiovascular: Perfusing. Intravascular volume better met post colloid and keep load today. Gross interstitial overload and will see if we can ultilametly mobilize later today to offset degree of pulm effusions fostering resp failure. Pull back picc line Respiratory: Intubation. see if she can be supported with time and recruitment with aprv. Would not jump to thoracentesis nor pig tails yet given her trasudative fluid, but could consider if ultimately impairs weaning. Gastrointestinal: multiple ailments: question becomes regarding her ability to heal and would hate to ibis with exploratory lap leading to an open abdomen and lengthy ICU stay with poor healing capability as she is already so nutritionally deficient. Again, this was explained to pt and . CT, al beit early in post op setting, shows residual air but no definitive entity; there is more subq air in Right gluteal region, but clinically also passing stool from this region with ill defined fistula on CT. Surgery following and we agree if pt unable to equilibrate today, may need high level of care if potential need for intervening surgical needs. Would hold off on TPN today but as long as no further acute inflammation changes come tomorrow would initiate. Sup. Ogt. Of note, fatty liver identified on CT. Renal/Metabolic: Cr stable and able to mobilize with lasix. Would aniticpate colloid load today and further attempts at diuresis while promoting a flow phase. Mag, phos, K replete today IV. f/u. Sommer given acute critical care disease. Infectious Disease: on zosyn and flagyl with adequate coverage. wbc counts seems to have matured post immature bandemia and remains afebrile. Can be consider with potential for fungal smoldering disease with her and may have low threshold to treat, esepcailly as she is going to need significant time soon on TPN. Hematology: Post colloids we achieved hemodilution. Plt lower then might have expected, although would have expected 100s. INR corrected post vit k. bili ok. no signs of bleeding, but certainly at risk for consumption. Can f/u fibrinogen again and check haptoglobin for what it is worth. Still holding off on heparin subq for now but need to start soon. Hopefully plt can grabiel tomorrow into perhaps 70s and then rebound, if less then 50k tomorrow wound need to continue to hold on chemical prophylaxis. Endocrine: dextrose can be lowered as better now. No steroid need at present but may very well need given potential for adrenal depletion. Musculoskeletal: bedrest today. f/u wound care Psych/Social: Again, d/w pt and , with both expressed understanding Supportive and preventative care as ordered. SUP: ppi VTE prophylaxis: scds Disposition: ICU Code Status: Full D/w Dr. Rowley Critical Care Time: 45min, excl procedures. Chani Hammer DO
--- NOTE | 2016-03-12 10:59 | PN ---
Progress Note - Progress Note Note: CRITICAL CARE MEDICINE PROCEDURE NOTE DATE: 03/12/16 TIME: 1000 SERVICE: Critical Care Medicine LOCATION OF PROCEDURE: ICU PROCEDURE: Endotracheal intubation PROCEDURALIST: Dr. Hammer Consent obtain: Yes, verbal Time out held: Not indicated INDICATION: Acute respiratory failure PROCEDURE: Oxygenation maintained and vitals monitored. Levophed pre-emptively started as well as albumin bolus. Patient in supine position. Pre-medication with fentanyl 250mcg / propofol 100mg total. Glidescope #3 inserted with Grade 2 view obtained. 8.0 endotracheal tube inserted to 21cm lip. Good chest rise with breath sounds appreciated in bilaterally lung thomas. EtCO2 + color change. Portable chest x-ray with ett in place. Patient otherwise tolerated well. Chani Hammer DO
[2016-03-12] MEDS: Propofol* 100 ML IV SCH ×3 (12:07→23:30)
[2016-03-12] MEDS: Norepinephrine 16MCG/ML IVPRE* 4,000 MCG/250 ML BAG IV SCH ×3 (12:08→16:13)
[2016-03-12] MEDS ORDERED: D5W 1/2 NS 40 Meq KCL 1000 ML* 1,000 ML IV SCH (13:00)
[2016-03-12] MEDS: Pantoprazole IV* 40 MG IV SCH (13:18)
[2016-03-12] MEDS: Chlorhexidine MOUTHWASH 0.12%* 15 ML UDC TOPICAL SCH ×5 (13:18→21:30)
[2016-03-12] MEDS: Hydrocortisone INJ* 100 MG VIAL IV SCH ×2 (13:18→21:28)
--- NOTE | 2016-03-12 13:23 | PN ---
Progress Note - Progress Note Note: CRITICAL CARE MEDICINE DATE: 03/12/16 TIME: 12:10 Fistulas better visualized with turning of pt with nursing. No crepitance around her two cutaneous fistula exits. No pain to deep palpation, no rubor or calor. Discharge noted and mucoid. Pt settling out post intubation, with HR 90s , SBP >90 and MAP ~65 but requiring 20 levophed currently for this. Diastolic pressures into 4-50s. May be showing signs of adernal depletion now and will provide stress dose steroids. Pt herself is able to awake on propofol and communicate but best to leave her sedate while trying to further recruit her lungs now. Changed to APRV and see if we can make progress. D/w pt at bedside and he expressed good understandings of her critical ailments and potential needs, including transfer and surgery perhaps, but is in agreement not to elliott to transfer currently. Explained we should be in a better position later today to support our clinical pathways. Critical Care Time: 20min. Chani Hammer,
--- NOTE | 2016-03-12 18:03 | PN ---
Progress Note - Progress Note Note: CRITICAL CARE MEDICINE DATE: 03/12/16 TIME: 16:10 Pt tolerating. Levophed weaning down. Fio2 to 40%. Hr 90s. Will add lasix now and see how she can mobilize. Would plan for TPN A tomorrow. Low dose maintence fluid with dextrose today but may need less dextrose with steroids added now. No acute surgical needs at present. Re-eval tomorrow with ongoing care. Pt again expresses good understanding with plans of care. Critical Care Time: 10min. Chani Hammer DO
[2016-03-12] MEDS: HYDROmorphone INJ* 1 MG/ML CARPUJECT SYRINGE IV PRN (22:35)
[2016-03-13] MEDS: Albumin Human 25%* 50 ML BTL IV SCH ×2 (00:21→06:00)
[2016-03-13] MEDS: Norepinephrine 16MCG/ML IVPRE* 4,000 MCG/250 ML BAG IV SCH ×3 (00:29→10:35)
[2016-03-13] MEDS: Chlorhexidine MOUTHWASH 0.12%* 15 ML UDC TOPICAL SCH ×6 (02:22→21:27)
[2016-03-13] MEDS: HYDROmorphone INJ* 1 MG/ML CARPUJECT SYRINGE IV PRN (03:41)
[2016-03-13 05:20] LABS: Comments Flag Yes; Hematocrit 23 % (35-47); Hemoglobin 7.4 g/dl (12.0-16.0); Mean Corpuscular HGB Conc 32 g/dl (31-36); Mean Corpuscular Hemoglobin 25 pg (27-31); Mean Corpuscular Volume 80 fL (80-97); Red Blood Count 2.93 10^6/ul (4.0-5.4); Red Cell Distribution Width 17 % (10.5-15); White Blood Count 15.5 10^3/ul (3.5-10.8)
[2016-03-13 05:21] LABS: Add Diff/Slide Review? Slide Review Added
[2016-03-13 05:22] LABS: Venous Bicarbonate HCO3 21.6 mmol/L (24-28)
[2016-03-13 05:27] LABS: Albumin 3.4 g/dL (3.2-5.2); BUN/Creatinine Ratio 27.3 (8-20); Calcium 8.3 mg/dL (8.6-10.3); EGFR Non-African American 114.3 (>60); Globulin 1.9 g/dL (2-4); Phosphorus 3.1 mg/dL (2.5-5.0); Potassium 3.4 mmol/L (3.5-5.0); Total Bilirubin 0.8 mg/dL (0.2-1.0); Total Protein 5.3 g/dL (6.4-8.9)
[2016-03-13] MEDS: Propofol* 100 ML IV SCH ×3 (05:30→20:14)
[2016-03-13] MEDS: Hydrocortisone INJ* 100 MG VIAL IV SCH ×3 (05:31→21:24)
[2016-03-13] MEDS: Piperac/Tazob 3.375 gm in NS* 3.375 GM/100 ML BAG IVPB SCH ×3 (05:38→18:31)
[2016-03-13 05:47] LABS: Mean Platelet Volume 9 um3 (7.4-10.4)
[2016-03-13 05:56] LABS: Immature Granulocytes 17 % (0-9); Metamyelocytes % 6 % (0-2); Myelocytes % 4 % (0-1); Neutrophil % 69 % (38-83); Reactive Lymph % 1 % (0-6)
[2016-03-13 05:57] LABS: Add Path Review? YES; Macrocytosis 1+; Microcytosis 1+
[2016-03-13] MEDS: metroNIDAZOLE IV 500 MG/100ML* 500 MG/100 ML BAG IVPB SCH ×2 (08:08→21:00)
--- NOTE | 2016-03-13 08:29 | RAD ---
INDICATION: Respiratory failure COMPARISON: March 12, 2016 TECHNIQUE: An AP portable view obtained at 0606 hours is submitted. FINDINGS: Bones/Soft Tissues: There are no acute bony findings. The endotracheal and nasogastric tubes appear in expected positions there is a right-sided PICC catheter terminating in the superior vena cava. Cardiomediastinal: The cardiomediastinal silhouette is normal. Lungs: There are patchy upper lobe infiltrates. There is significantly improved aeration. Pleura: Small bilateral pleural effusions with interval decrease in size. Other: None IMPRESSION: SMALL RESIDUAL INFILTRATES AND SMALL BILATERAL PLEURAL EFFUSIONS. THERE IS INTERVAL IMPROVEMENT.
--- NOTE | 2016-03-13 09:30 | PN ---
Progress Note - Progress Note Note: Progress Note - Critical Care 24 hour events/significant events: -intubated yesterday for hypoxia, started on lasix x1 -cxr revealed patchy infiltrate versus pulmonary edema yesterday -overnight remains intubated, on APRV mode -awakens, on sedation with propofol -no other significant events noted Vitals: Vital Signs Temp 98.9 F 03/13/16 07:53 Pulse 92 03/13/16 07:30 Resp 12 03/13/16 07:30 BP 105/63 03/13/16 07:30 Pulse Ox 99 03/13/16 07:30 Intake & Output 03/12/16 03/13/16 03/13/16 18:59 06:59 18:59 Intake Total 2340.7 1899.7 379.9 Output Total 2580 1500 140 Balance -239.3 399.7 239.9 Weight 166 lb 3.657 oz Intake: IV Fluids 1995.7 1585.7 254.9 D5W 1/2 NS 40 meq KCL 573 76.5 D5W NS (0.9%) 705 NS 96.9 albumin 700 200 levophed 406 542 139 magnesium 100 propofol 84.7 173.8 39.4 IVPB 345 314 125 ABX - FLAGYL 107 ABX - ZOSYN 207 NS 345 125 Output: NG Tube Drainage Amount 690 150 Stafford 1890 1350 140 O2/Vent: APRV 40%, peak 30, low 0, RR 25 now, release 2-3 seconds Medications: Current Medications Chlorhexidine Gluconate (Peridex Mouth Wash 0.12%*) 15 ml TOPICAL Q4HR [facility] Last Admin: 03/13/16 05:39 Dose: 15 ml Fentanyl Citrate (Fentanyl*) 25 mcg IV SLOW PU Q2H PRN PRN Reason: PAIN Heparin Sodium (Porcine) (Heparin Flush Picc/Ml/Cvc(*)) 1 - 3 ml FLUSH 0600, 1800 [facility] PRN Reason: Protocol Last Admin: 03/13/16 05:33 Dose: Not Given Hydrocortisone Sodium Succinate (Solu-Cortef*) 100 mg IV Q8H [facility] Last Admin: 03/13/16 05:31 Dose: 100 mg Hydromorphone HCl (Dilaudid Iv*) 1 mg IV Q1H PRN PRN Reason: PAIN - SEVERE Last Admin: 03/13/16 03:41 Dose: 1 mg Metronidazole/Sodium Chloride (Flagyl 500 Mg Ivpb*) 500 mg in 100 mls @ 100 mls /hr IVPB Q12H [facility] Last Admin: 03/13/16 08:08 Dose: 100 mls/hr Piperacillin Sod/Tazobactam Sod (Zosyn 3.375 Gm In Ns Premix*) 3.375 gm in 100 mls @ 200 mls/hr IVPB 0000,0600,1200,1800 [facility] Last Admin: 03/13/16 05:38 Dose: 200 mls/hr Diltiazem HCl (Cardizem Iv Advan*) 100 mg in 100 mls @ 0 mls/hr IVPB .PER RATE [facility]; As Directed PRN Reason: Protocol Last Admin: 03/12/16 04:07 Dose: 10 mls/hr Propofol (Diprivan*) 100 mls @ 9.156 mls/hr IV .(Initial Rate) [facility] PRN Reason: 20 MCG/KG/MIN Last Admin: 03/13/16 05:30 Dose: 9.156 mls/hr Norepinephrine Bitartrate (Levophed 16 Mcg/Ml Premix Bag*) 4,000 mcg in 250 mls @ 37.5 mls/hr IV .INITIAL RATE [facility] PRN Reason: 10 MCG/MIN Last Admin: 03/13/16 05:40 Dose: 48.4 mls/hr Potassium Chloride/Dextrose (D5w 1/2 Ns 40 Meq Kcl 1000 Ml*) 1,000 mls @ 50 mls /hr IV PER RATE [facility] Stop: 03/13/16 17:00 Influenza Virus Vaccine (Fluarix *Quad* *) 0.5 ml IM .ONCE ONE Stop: 03/16/16 08:01 Ondansetron HCl (Zofran Inj*) 4 mg IV Q4H PRN PRN Reason: NAUSEA/VOMITING Last Admin: 03/09/16 22:23 Dose: 4 mg Pantoprazole Sodium (Protonix Iv*) 40 mg IV Q24H [facility] Last Admin: 03/12/16 13:18 Dose: 40 mg Physical Exam: General intubated, sedated, opens eyes, moves ext, not diaphoretic or distressed HEENT pallor+, no icterus, moist mucous membranes Neck jvd+, soft CVS normal rate, normal rhythm, no murmur Resp bilateral air entry, minimal rhales, no rhonchi/wheeze, no acc muscle use , not tachypneic, intubated Abdomen soft, nontender, nondistended, no rebound, bowel sounds present; surgical site intact Ext pulses+, warm, edema+/gen anasarca; Skin (need to eval fistulas at later time) Neuro intubated, on sedation, opens eyes, tracks, spont movement of ext but sleepy. Labs: Laboratory Results - last 24 hr 03/12/16 03/13/16 03/13/16 18:14 04:50 04:50 WBC RBC Hgb Hct MCV MCH MCHC RDW Plt Count MPV Immature Gran % (Auto) Neut % (Auto) Lymph % (Auto) Letcher % (Auto) Eos % (Auto) Baso % (Auto) Absolute Neuts (auto) Absolute Lymphs (auto) Absolute Monos (auto) Absolute Eos (auto) Absolute Basos (auto) Absolute Nucleated RBC Neutrophils % Band Neutrophils % Lymphocytes % Reactive Lymphs % Monocytes % Metamyelocytes % Myelocytes % Nucleated RBC % Normal RBC Morphology Microcytosis Macrocytosis Elliptocytes Hem Pathologist Commnt INR (Anticoag Therapy) 1.24 H APTT 29.3 Fibrinogen 457 H Coag Pathologist Com VBG pH 7.32 L VBG pCO2 42 VBG pO2 45 VBG HCO3 21.6 L VBG O2 Saturation 78.8 VBG Base Excess -4.1 L Sodium Potassium Chloride Carbon Dioxide Anion Gap BUN Creatinine Est GFR ( Amer) Est GFR (Non-Af Amer) BUN/Creatinine Ratio Glucose POC Glucose (mg/dL) 172 H Lactic Acid Calcium Ionized Calcium 4.99 Phosphorus Magnesium Total Bilirubin AST ALT Alkaline Phosphatase Lactate Dehydrogenase Total Protein Albumin Globulin Albumin/Globulin Ratio 03/13/16 03/13/16 03/13/16 04:50 04:50 04:50 WBC 15.5 H RBC 2.93 L Hgb 7.4 L Hct 23 L MCV 80 MCH 25 L MCHC 32 RDW 17 H Plt Count 43 L D MPV 9 Immature Gran % (Auto) 17 H Neut % (Auto) 97.4 H Lymph % (Auto) 1.3 L Letcher % (Auto) 1.1 Eos % (Auto) 0 Baso % (Auto) 0.2 Absolute Neuts (auto) 15.1 H Absolute Lymphs (auto) 0.2 L Absolute Monos (auto) 0.2 Absolute Eos (auto) 0 Absolute Basos (auto) 0 Absolute Nucleated RBC 0 Neutrophils % 69 Band Neutrophils % 7 Lymphocytes % 11 L Reactive Lymphs % 1 Monocytes % 2 Metamyelocytes % 6 H Myelocytes % 4 H Nucleated RBC % 0 Normal RBC Morphology Not Reportable Microcytosis 1+ Macrocytosis 1+ Elliptocytes 1+ Hem Pathologist Commnt INR (Anticoag Therapy) APTT Fibrinogen Coag Pathologist Com VBG pH VBG pCO2 VBG pO2 VBG HCO3 VBG O2 Saturation VBG Base Excess Sodium 144 Potassium 3.4 L Chloride 114 H Carbon Dioxide 23 Anion Gap 7 BUN 15 Creatinine 0.55 Est GFR ( Amer) 147.0 Est GFR (Non-Af Amer) 114.3 BUN/Creatinine Ratio 27.3 H Glucose 150 H POC Glucose (mg/dL) Lactic Acid 1.8 Calcium 8.3 L Ionized Calcium Phosphorus 3.1 Magnesium 2.0 Total Bilirubin 0.80 AST 13 ALT 12 Alkaline Phosphatase 93 Lactate Dehydrogenase 164 Total Protein 5.3 L Albumin 3.4 Globulin 1.9 L Albumin/Globulin Ratio 1.8 Imaging: cxr 03/13 - improved aeration bilaterally, improved patchy infiltrates, ett above juan, PICC in place on right, minimal effusion cxr 03/12 - bilateral pulm congestion/edema, left > right, ett above juan Assessment: 55 F with 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 neuro checks, sedation holidays daily, neuro checks as per protocol. fall prec. keep RAAS -1/-2 CVS- septic shock, lactic acid 1.8, levo dec to 8mcg/min now. on IVF d5 ns infusion. still grossly overloaded but diuresed well with lasix yesterday. chest xray improved after diuresis. will give additional lasix 20mg iv, try to minimize IV inputs, goal negative balance. titrate pressors to keep MAP>65. on cardizem IV for heart rate control. recheck vbg to see CO status. hg dropped, would benefit from 1-2 units prbc to improve oxygen carrying capacity in setting of sepsis/shock. will discuss with family. no overt bleeding observed. on hydrocortisone for stress dose steroids given septic shock. will wean dose starting tomorrow. Resp- on APRV, improved aertation on cxr after diuresis. fio2 requirements improved now to 40%. may obtain abg later. but overall seems comfortable on vent. may switch to AC mode today and allow more spontaneous respirations. ID- on zosyn/metronidazole to cover GI/anearobic organisms. not febrile. wbc improved. plt still low. cont abx. need to eval the fistulas and cellulitus? once nursing is able to turn patient. still in septic shock but decreasing pressors requirements. GI- s/p ileocolonic resection and anas for enterocut fistula. discussed with surgery. no acute need for OR at this time. NPO. TPN to be started. NGT to intermittent suction. follow fistula outputs. continue zosyn and flagyl. INR improved now. LFTs normal. noted >800cc NGT output. cont to monitor. Renal- good urine output, replete K. stafford in place. IV d5NS infusion ongoing. lasix 20mg iv x1 today again. Heme- hg declined to 7.4 from 8s, no overt bleeding observed, abd soft/nd, ext intact. plt also decline. would benefit from 1-2 units prbc transfusion. will repeat cbc after blood transfusion, if plt continue to decline, will give additional plt also. coag panel intact, previous fibrinogen elevated, low suspicion for DIC at this time. no dvt sq proph given recent coagulopathy/dec hg /thrombocytopenia. Endo- on d5 infusion, bs ~150. will start to decrease d5 once TPN started. Musculsk- bed rest for now, pressure ulcer prophylaxis DVT prophylaxis -compression boots, GI prophylaxis -protonix Central Line - picc Right arm Arterial Line - none Stafford Cathetor - yes Total Critical Care time is 35 minutes, excluding procedures/teaching Amandeep Dawn Project Management Instructor
[2016-03-13] MEDS ORDERED: Furosemide IV* 10 MG/ML 2 ML VIAL (20 MG) IV SLOW PU ONE (09:42)
[2016-03-13] MEDS: Pantoprazole IV* 40 MG IV SCH (13:56)
[2016-03-13] MEDS: WATER TPN SCH ×11 (18:33)
[2016-03-13] MEDS: [UNRECOGNIZED DRUG - OTHER] TPN SCH ×11 (18:33)
[2016-03-13] MEDS: DEXTROSE TPN SCH ×11 (18:33)
[2016-03-13] MEDS: TPN TPN SCH ×11 (18:33)
[2016-03-13] MEDS: AMINO ACID INFUSION TPN SCH ×11 (18:33)
[2016-03-13 22:19] LABS: Hematocrit 29 % (35-47); Hemoglobin 9.6 g/dl (12.0-16.0); Mean Corpuscular HGB Conc 33 g/dl (31-36); Mean Corpuscular Hemoglobin 26 pg (27-31); Mean Corpuscular Volume 81 fL (80-97); Mean Platelet Volume 9 um3 (7.4-10.4); Red Blood Count 3.62 10^6/ul (4.0-5.4); Red Cell Distribution Width 17 % (10.5-15); White Blood Count 6.3 10^3/ul (3.5-10.8)
[2016-03-13 22:24] LABS: Comments Flag Yes
[2016-03-14] MEDS: Piperac/Tazob 3.375 gm in NS* 3.375 GM/100 ML BAG IVPB SCH ×5 (00:37→23:44)
[2016-03-14] MEDS: Propofol* 100 ML IV SCH ×3 (02:04→20:05)
[2016-03-14] MEDS: HYDROmorphone INJ* 1 MG/ML CARPUJECT SYRINGE IV PRN (02:34)
[2016-03-14] MEDS: Chlorhexidine MOUTHWASH 0.12%* 15 ML UDC TOPICAL SCH ×6 (02:37→20:14)
[2016-03-14 03:37] LABS: PCO2 Arterial 71 mmHg (35-45)
[2016-03-14] MEDS: Hydrocortisone INJ* 100 MG VIAL IV SCH ×3 (05:15→20:14)
[2016-03-14 05:59] LABS: Albumin 2.9 g/dL (3.2-5.2); BUN/Creatinine Ratio 35.5 (8-20); Calcium 8.4 mg/dL (8.6-10.3); EGFR African American 101.2 (>60); EGFR Non-African American 78.7 (>60); Globulin 1.8 g/dL (2-4); Magnesium 1.9 mg/dL (1.9-2.7); Phosphorus 2.4 mg/dL (2.5-5.0); Potassium 3.3 mmol/L (3.5-5.0); Total Bilirubin 0.5 mg/dL (0.2-1.0); Total Protein 4.7 g/dL (6.4-8.9)
--- NOTE | 2016-03-14 07:47 | ED ---
Raphael Stubbs Michael, scribed for Jorge Jacob MD on 03/08/16 at 1940 . GI/ HPI - HPI Summary HPI Summary: 55 y/o female was [facility] from [facility] because [facility] did not have a general surgeon community integration specialist to evaluate her NG tube. The pt reports that she has n/v/d for the past week and the diarrhea stopped until 3 days ago. She also c/o of current cramping abd pain and hemorrhoids. She denies urinary sx, fever, and chills. The pt reports an abscess on her buttocks that started bleeding 2 days ago. A significant PMHx is denied. The FHx is insignificant for Crohn's Disease. Reviewing pt's Labs at [facility]: white count:22.9 88% neutrophils Chemistry: sodium-126 Anion GAP-17.9 BUN-33 Creatinine-0.9 BUN/Creatinine-36.7 - History of Current Complaint Chief Complaint: EDAbdPain Stated Complaint: SBO COMMING FROM [facility] Hx Obtained From: Patient, EMS, Medical Records Onset/Duration: Started Weeks Ago, Still Present Timing: Constant Severity: Moderate Current Severity: Moderate Pain Intensity: 2 Location of Pain: Diffuse Pain Characteristics: Cramping Associated Signs and Symptoms: Positive: Negative - urinary sx, Nausea, Vomiting , Diarrhea, Other: - abd pain. Negative: Fever, Chills PMH/Surg Hx/FS Hx/Imm Hx Previously Healthy: Yes - pt denies significant PMHx Infectious Disease History: No Infectious Disease History: Denies: Traveled Outside the [place] in Last 30 Days - Family History Known Family History: Positive: None Family History: pt denies a significant FHx - Social History Lives: With Family Alcohol Use: None Substance Use Type: Reports: None Smoking Status (MU): Former Smoker Review of Systems Negative: Fever, Chills Negative: Erythema Negative: Sore Throat Negative: Chest Pain Negative: Shortness Of Breath, Cough Positive: Abdominal Pain, Vomiting, Diarrhea, Nausea Positive: no symptoms reported. Negative: dysuria, hematuria Negative: Myalgia, Edema - bilat LE Positive: Other - hemorrhoid. fistula left buttock.. Negative: Rash Neurological: Negative - dizziness All Other Systems Reviewed And Are Negative: Yes Physical Exam - Summary Physical Exam Summary: Constitutional: Well-developed, Well-nourished, Alert. (-) Distressed Skin: Warm, Dry, Perianal fistula left buttock, external hemorrhoid HENT: Normocephalic; Atraumatic Eyes: Conjunctiva normal Neck: Musculoskeletal ROM normal neck. (-) JVD, (-) Stridor, (-) Tracheal deviation Cardio: Rhythm regular, rate normal, Heart sounds normal; Intact distal pulses; The pedal pulses are 2+ and symmetric. Radial pulses are 2+ and symmetric. (-) Murmur Pulmonary/Chest wall: Effort normal. (-) Respiratory distress, (-) Wheezes, (-) Rales Abd: Soft, (-) Tenderness, (-) Distension, (-) Guarding, (-) Rebound Musculoskeletal: (-) Edema Lymph: (-) Cervical adenopathy Neuro: Alert, Oriented x3 Psych: Mood and affect Normal Triage Information Reviewed: Yes Vital Signs On Initial Exam: Initial Vitals Temp Pulse Resp BP Pulse Ox 98.9 F 108 18 120/54 94 03/08/16 18:50 03/08/16 18:50 03/08/16 18:50 03/08/16 18:50 03/08/16 18:50 Vital Signs Reviewed: Yes - Lillian Coma Scale Coma Scale Total: 15 Diagnostics - Vital Signs Vital Signs Temp Pulse Resp BP Pulse Ox 03/08/16 19:00 111 14 117/61 93 03/08/16 18:59 111/57 03/08/16 18:50 98.9 F 108 18 120/54 94 - Laboratory Lab Statement: Any lab studies that have been ordered have been reviewed, and results considered in the medical decision making process. GIGU Course/Dx - Course Course Of Treatment: 55 y/o female was transfered from [facility] because [facility] did not have a general surgeon community integration specialist. She c/o n/v/d, abd pain, hemorrhoid, and a perinanal fistula on the left buttock. Consulted Dr. Rowley ( Surgery) at 2221 about pt plan to admit the pt, and Dr. Rowley will accept the pt as an admission. - Diagnoses Provider Diagnoses: Small bowel obstruction, Perianal fistula Discharge - Discharge Plan Condition: Stable Disposition: ADMITTED TO [facility] Discharge Disposition Comment: Dr. Rowley accepts pt as an admission The documentation as recorded by the Raphael rodriguez Michael accurately reflects the service I personally performed and the decisions made by me, Jorge Jacob MD.
[2016-03-14 07:56] LABS: Hematocrit 27 % (35-47); Hemoglobin 8.9 g/dl (12.0-16.0); Mean Corpuscular HGB Conc 33 g/dl (31-36); Mean Corpuscular Hemoglobin 26 pg (27-31); Mean Corpuscular Volume 81 fL (80-97); Mean Platelet Volume 9 um3 (7.4-10.4); Red Blood Count 3.39 10^6/ul (4.0-5.4); Red Cell Distribution Width 17 % (10.5-15)
[2016-03-14 08:00] LABS: Comments Flag Yes
--- NOTE | 2016-03-14 08:20 | PN ---
Progress Note - Progress Note Note: Progress Note - Critical Care 24 hour events/significant events: -started on TPN overnight, off d5 infusion -given 2 units prbc for low hg, no bleeding noted otherwise -had drainage from fistula sites overnight, brownish liquid material -on propofol; off levophed since yesterday afternoon -remains intubated, switched to PC ventilation mode -awake spontaneously -other events/vitals noted overnight. -discussion about plan/goals of care had with at bedside yesterday. Vitals: Vital Signs Temp 100.8 F 03/14/16 07:53 Pulse 97 03/14/16 06:00 Resp 24 03/14/16 06:00 BP 91/49 03/14/16 06:00 Pulse Ox 97 03/14/16 06:00 Intake & Output 03/13/16 03/14/16 03/14/16 18:59 06:59 18:59 Intake Total 1163.8 2336 Output Total 980 700 Balance 183.8 1636 Weight 167 lb 8.821 oz Intake: IV Fluids 757.8 D5W 1/2 NS 40 meq KCL 363.0 levophed 246.9 propofol 147.9 IVPB 406 952 ABX - FLAGYL 134 100 ABX - ZOSYN 100 NS 272 100 propofol 652 TPN/PPN 924 Packed Cells 460 Output: NG Tube Drainage Amount 100 Stafford 980 600 Other: # Bowel Movements 0 O2/Vent: PCV peak 20, peep 5, rate 20 spontaneous, fio2 35%; current TV 600, sat 100% on monitor. Medications: Current Medications Chlorhexidine Gluconate (Peridex Mouth Wash 0.12%*) 15 ml TOPICAL Q4HR [facility] Last Admin: 03/14/16 05:49 Dose: 15 ml Fentanyl Citrate (Fentanyl*) 25 mcg IV SLOW PU Q2H PRN PRN Reason: PAIN Last Admin: 03/14/16 00:35 Dose: 25 mcg Heparin Sodium (Porcine) (Heparin Flush Picc/Ml/Cvc(*)) 1 - 3 ml FLUSH 0600, 1800 [facility] PRN Reason: Protocol Last Admin: 03/14/16 05:50 Dose: Not Given Hydrocortisone Sodium Succinate (Solu-Cortef*) 100 mg IV Q8H [facility] Last Admin: 03/14/16 05:15 Dose: 100 mg Hydromorphone HCl (Dilaudid Iv*) 1 mg IV Q1H PRN PRN Reason: PAIN - SEVERE Last Admin: 03/14/16 02:34 Dose: 1 mg Metronidazole/Sodium Chloride (Flagyl 500 Mg Ivpb*) 500 mg in 100 mls @ 100 mls /hr IVPB Q12H [facility] Last Admin: 03/13/16 21:00 Dose: 100 mls/hr Piperacillin Sod/Tazobactam Sod (Zosyn 3.375 Gm In Ns Premix*) 3.375 gm in 100 mls @ 200 mls/hr IVPB 0000,0600,1200,1800 [facility] Last Admin: 03/14/16 05:49 Dose: 200 mls/hr Diltiazem HCl (Cardizem Iv Advan*) 100 mg in 100 mls @ 0 mls/hr IVPB .PER RATE [facility]; As Directed PRN Reason: Protocol Last Admin: 03/12/16 04:07 Dose: 10 mls/hr Propofol (Diprivan*) 100 mls @ 9.156 mls/hr IV .(Initial Rate) [facility] PRN Reason: 20 MCG/KG/MIN Last Admin: 03/14/16 07:21 Dose: 13.6 mls/hr Norepinephrine Bitartrate (Levophed 16 Mcg/Ml Premix Bag*) 4,000 mcg in 250 mls @ 37.5 mls/hr IV .INITIAL RATE [facility] PRN Reason: 10 MCG/MIN Last Admin: 03/13/16 10:35 Dose: 15 mls/hr Dextrose 500 ml/ Amino Acids 1 ,000 ml/ Fat Emulsion Intravenous 250 ml/ Sodium Chloride 100 meq/ Potassium Chloride 50 meq/ Potassium Phosphate 15 mmole/ Calcium Gluconate 15 meq/ Magnesium Sulfate 10 meq/ Multivitamins 10 ml/ Trace Metals 3 ml/Nutrition (Parenteral) 1,852.721 mls @ 77.2 mls/hr TPN 1700 [facility] Last Admin: 03/13/16 18:33 Dose: 77.2 mls/hr Influenza Virus Vaccine (Fluarix *Quad* 2015-*) 0.5 ml IM .ONCE ONE Stop: 03/16/16 08:01 Ondansetron HCl (Zofran Inj*) 4 mg IV Q4H PRN PRN Reason: NAUSEA/VOMITING Last Admin: 03/09/16 22:23 Dose: 4 mg Pantoprazole Sodium (Protonix Iv*) 40 mg IV Q24H [facility] Last Admin: 03/13/16 13:56 Dose: 40 mg Physical Exam: General- intubated, sedated, opens eyes, moves ext, not diaphoretic or distressed HEENT- pallor+, no icterus, moist mucous membranes Neck- jvd+, soft CVS- normal rate, normal rhythm, no murmur Resp- bilateral air entry, minimal rhales, no rhonchi/wheeze, no acc muscle use , not tachypneic, intubated Abdomen- soft, nontender, nondistended, no rebound, bowel sounds present; surgical site intact midline; wen-anal fistula present with minimal drainage Ext pulses+, warm, edema+/gen anasarca; left posterior thigh fistula has mild discharge still, no erythema Skin - see above, mild anasarca+, fistulas as noted above. Neuro intubated, on sedation, opens eyes, tracks, spont movement of ext but sleepy. Labs: Laboratory Results - last 24 hr 03/11/16 03/13/16 03/13/16 04:23 00:15 04:50 WBC RBC Hgb Hct MCV MCH MCHC RDW Plt Count MPV Hem Pathologist Commnt ABG pH ABG pCO2 ABG pO2 ABG HCO3 ABG O2 Saturation ABG Base Excess Sodium Potassium Chloride Carbon Dioxide Anion Gap BUN Creatinine Est GFR ( Amer) Est GFR (Non-Af Amer) BUN/Creatinine Ratio Glucose POC Glucose (mg/dL) 185 H Calcium Phosphorus Magnesium Total Bilirubin AST ALT Alkaline Phosphatase Total Protein Albumin Globulin Albumin/Globulin Ratio Triglycerides Blood Type A Positive Antibody Screen Negative Crossmatch See Detail 03/13/16 03/13/16 03/13/16 04:50 16:56 22:06 WBC 6.3 RBC 3.62 L Hgb 9.6 L Hct 29 L MCV 81 MCH 26 L MCHC 33 RDW 17 H Plt Count 36 L MPV 9 Hem Pathologist Commnt ABG pH ABG pCO2 ABG pO2 ABG HCO3 ABG O2 Saturation ABG Base Excess Sodium Potassium Chloride Carbon Dioxide Anion Gap BUN Creatinine Est GFR ( Amer) Est GFR (Non-Af Amer) BUN/Creatinine Ratio Glucose POC Glucose (mg/dL) 148 H Calcium Phosphorus Magnesium Total Bilirubin AST ALT Alkaline Phosphatase Total Protein Albumin Globulin Albumin/Globulin Ratio Triglycerides 160 Blood Type Antibody Screen Crossmatch 03/13/16 03/14/16 03/14/16 22:09 00:18 03:25 WBC RBC Hgb Hct MCV MCH MCHC RDW Plt Count MPV Hem Pathologist Commnt ABG pH 7.20 L ABG pCO2 71 H ABG pO2 155 H ABG HCO3 23.9 ABG O2 Saturation 98.0 ABG Base Excess -1.3 Sodium Potassium Chloride Carbon Dioxide Anion Gap BUN Creatinine Est GFR ( Amer) Est GFR (Non-Af Amer) BUN/Creatinine Ratio Glucose POC Glucose (mg/dL) 198 H 214 H Calcium Phosphorus Magnesium Total Bilirubin AST ALT Alkaline Phosphatase Total Protein Albumin Globulin Albumin/Globulin Ratio Triglycerides Blood Type Antibody Screen Crossmatch 03/14/16 03/14/16 03/14/16 05:08 05:50 07:47 WBC 5.0 RBC 3.39 L Hgb 8.9 L Hct 27 L MCV 81 MCH 26 L MCHC 33 RDW 17 H Plt Count 32 L MPV 9 Hem Pathologist Commnt ABG pH ABG pCO2 ABG pO2 ABG HCO3 ABG O2 Saturation ABG Base Excess Sodium 150 H Potassium 3.3 L Chloride 117 H Carbon Dioxide 27 Anion Gap 6 BUN 27 H Creatinine 0.76 Est GFR ( Amer) 101.2 Est GFR (Non-Af Amer) 78.7 BUN/Creatinine Ratio 35.5 H Glucose 186 H POC Glucose (mg/dL) 222 H Calcium 8.4 L Phosphorus 2.4 L Magnesium 1.9 Total Bilirubin 0.50 AST 9 L ALT 9 Alkaline Phosphatase 82 Total Protein 4.7 L Albumin 2.9 L Globulin 1.8 L Albumin/Globulin Ratio 1.6 Triglycerides 157 Blood Type Antibody Screen Crossmatch Imaging: cxr 03/13 - improved aeration bilaterally, improved patchy infiltrates, ett above juan, PICC in place on right, minimal effusion cxr 03/12 - bilateral pulm congestion/edema, left > right, ett above juan cxr 03/14 - bilateral pulm congestion minimal, ett above juan, no sig effusion. 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 sedation holidays daily, neuro checks as per protocol. fall prec. keep RAAS -1/-2; will hold sedation for weaning trials. CVS- septic shock resolved, off levophed. on hydrocortisone q8h -> dec to q12h. off d5 infusion, TPN started. still grossly overloaded but diuresed well with lasix yesterday. change TPN fluid to more hypotonic fluid, and again will trial low dose lasix today to augment output, positive balance noted. minimize IV inputs, goal negative balance. titrate pressors to keep MAP>65. Seems blood products improved BP and weaned off pressors. Resp- Now on PC mode, seems to be tolerating well. CXR reviewed. lasix 10mg iv. CPAP trial today, hold sedation. ID- on zosyn/metronidazole to cover GI/anaerobic organisms. not febrile. wbc improved. plt still low. cont abx. fistulas noted to continue drainage, no cellulitus signs noted around them. GI- s/p ileocolonic resection and anas for enterocut fistula. no acute need for OR at this time. NPO. TPN started. NGT to intermittent suction with slowed output. if extubated will start PO. follow fistula outputs. continue zosyn and flagyl. INR improved now. LFTs normal. Renal- good urine output, replete K as needed. stafford in place. IV TPN infusion ongoing. lasix today. Heme- hg improved to 9.6, now 8.9. still no clear bleeding source noted. plt to 32k. will give 2 units plt due to declinging hg, unclear source. abd still soft , ext not swollen more than before. no dvt sq proph given recent coagulopathy/ dec hg/thrombocytopenia. compression boots for dvt prophylaxis. Endo- BS improved, off d5 infusion, will start insulin coverage to keep BS<180, add reg insulin to tpn Musculsk- bed rest for now, pressure ulcer prophylaxis DVT prophylaxis -compression boots GI prophylaxis -protonix Central Line - picc Right arm Arterial Line - none Stafford Cathetor - yes Code Status - Full Code Disposition: ICU for shock, respiratory failure Total Critical Care time is 35 minutes, excluding procedures/teaching Amandeep Dawn Executive Sales Manager
[2016-03-14] MEDS: metroNIDAZOLE IV 500 MG/100ML* 500 MG/100 ML BAG IVPB SCH ×2 (08:35→20:14)
[2016-03-14] MEDS: KCL 20 MEQ/100 ML IVPREMIX* 20 MEQ/100 ML BAG IV SCH ×2 (08:41→10:42)
--- NOTE | 2016-03-14 08:43 | RAD ---
INDICATION: Shortness of breath COMPARISON: Most recent comparison chest x-rays dated March 13, 2016 TECHNIQUE: Single AP portable view of the chest was obtained. FINDINGS: Image quality is compromised due to the relative inferiority of a portable chest x-ray. Unchanged the previous chest x-ray is the patient's right-sided PICC line, a gastric tube terminating beneath the diaphragm and an endotracheal tube with the tip terminating at the level the clavicular heads. The heart and mediastinum exhibit normal size and contour. The lungs are grossly clear. There is no evidence of a large pleural effusion. Visualized bones are normal for the patient's age. IMPRESSION: Grossly clear chest x-ray with little change from the March 13, 2016 chest x-ray and vastly improved aeration when compared to March 12, 2016 chest x-ray.
[2016-03-14] MEDS ORDERED: Furosemide IV* 10 MG/ML 10 ML VIAL (100 MG) IV ONE (10:46)
--- NOTE | 2016-03-14 12:59 | PN ---
Progress Note - Progress Note Note: Critical Care Medicine Patient became tachycardic, tachypneic, hypoxic during AM rounds. O2 sats dropped to 80s, RR 30+. Physical exam demonstrates bilateral rhales; suspected increased pulmonary edema. She was already positive balance past 24 hours. Given lasix 20mg iv x1 now, will redose in afternoon/evening; more aggressive diuresis. Need to limit IV, will start to administer PO electrolyte replacements also. Discussed with respiratory; switched to AC mode, MV ~13 now. No plan for weaning today given hypoxia; peep now at 10, O2 50%. CXR in AM Lasix diuretics today BP otherwise stable. Amandeep Dawn MD Safety Leader
[2016-03-14] MEDS: Pantoprazole IV* 40 MG IV SCH (13:22)
[2016-03-14 14:47] LABS: Urine Bacteria Absent (Absent); Urine Bilirubin Negative (Negative); Urine Glucose Negative (Negative); Urine Nitrite Negative (Negative)
[2016-03-14 15:47] LABS: FIO2 35; Patient Temp ABG 99.9; Resp Rate 33; Ventilator Volume 450
[2016-03-14 15:51] LABS: PCO2 Arterial 36 mmHg (35-45)
[2016-03-14] MEDS ORDERED: TPN TPN SCH ×12 (17:00)
[2016-03-14] MEDS ORDERED: AMINO ACID INFUSION TPN SCH ×12 (17:00)
[2016-03-14] MEDS ORDERED: [UNRECOGNIZED DRUG - OTHER] TPN SCH ×12 (17:00)
[2016-03-14] MEDS ORDERED: WATER TPN SCH ×12 (17:00)
[2016-03-14] MEDS ORDERED: DEXTROSE TPN SCH ×12 (17:00)
[2016-03-14] MEDS: AMINO ACID INFUSION TPN SCH ×11 (17:18)
[2016-03-14] MEDS: WATER TPN SCH ×11 (17:18)
[2016-03-14] MEDS: DEXTROSE TPN SCH ×11 (17:18)
[2016-03-14] MEDS: TPN TPN SCH ×11 (17:18)
[2016-03-14] MEDS: [UNRECOGNIZED DRUG - OTHER] TPN SCH ×11 (17:18)
[2016-03-14 18:27] LABS: Hematocrit 27 % (35-47); Hemoglobin 8.8 g/dl (12.0-16.0); Mean Corpuscular HGB Conc 33 g/dl (31-36); Mean Corpuscular Hemoglobin 26 pg (27-31); Mean Corpuscular Volume 81 fL (80-97); Mean Platelet Volume 8 um3 (7.4-10.4); Red Blood Count 3.36 10^6/ul (4.0-5.4); Red Cell Distribution Width 17 % (10.5-15); White Blood Count 4.3 10^3/ul (3.5-10.8)
[2016-03-14 18:28] LABS: Add Diff/Slide Review? Slide Review Added; Comments Flag Yes
[2016-03-14 19:02] LABS: Immature Granulocytes 32 % (0-9); Metamyelocytes % 5 % (0-2); Myelocytes % 1 % (0-1); Neutrophil % 48 % (38-83)
[2016-03-14 19:03] LABS: Hypochromasia 2+; Toxic Granulation 1+
[2016-03-14 19:04] LABS: Macrocytosis 1+; Stomatocytes 1+
[2016-03-14] MEDS ORDERED: Furosemide IV* 10 MG/ML 2 ML VIAL (20 MG) IV ONE (20:00)
[2016-03-14] MEDS ORDERED: Potassium Chloride LIQUID* 20 MEQ PACKET G TUBE ONE (20:00)
[2016-03-15] MEDS: Propofol* 100 ML IV SCH ×4 (01:04→19:39)
[2016-03-15] MEDS: Chlorhexidine MOUTHWASH 0.12%* 15 ML UDC TOPICAL SCH ×6 (04:14→23:42)
[2016-03-15] MEDS: Acetaminophen ADULT LIQ* 650 MG/20.3 ML UDC PO PRN (04:14)
[2016-03-15] MEDS: HYDROmorphone INJ* 1 MG/ML CARPUJECT SYRINGE IV PRN ×2 (04:15→19:39)
[2016-03-15 05:39] LABS: Hematocrit 29 % (35-47); Hemoglobin 9.4 g/dl (12.0-16.0); Mean Corpuscular HGB Conc 32 g/dl (31-36); Mean Corpuscular Hemoglobin 26 pg (27-31); Mean Corpuscular Volume 80 fL (80-97); Mean Platelet Volume 9 um3 (7.4-10.4); Red Blood Count 3.62 10^6/ul (4.0-5.4); Red Cell Distribution Width 17 % (10.5-15); White Blood Count 6.5 10^3/ul (3.5-10.8)
[2016-03-15] MEDS: Piperac/Tazob 3.375 gm in NS* 3.375 GM/100 ML BAG IVPB SCH ×4 (05:44→23:41)
[2016-03-15 05:50] LABS: Comments Flag Yes
[2016-03-15 06:02] LABS: Albumin 2.8 g/dL (3.2-5.2); BUN/Creatinine Ratio 54.8 (8-20); Calcium 8.3 mg/dL (8.6-10.3); EGFR African American 128.1 (>60); EGFR Non-African American 99.6 (>60); Globulin 2.4 g/dL (2-4); Magnesium 1.8 mg/dL (1.9-2.7); Phosphorus 2.1 mg/dL (2.5-5.0); Total Bilirubin 0.6 mg/dL (0.2-1.0); Total Protein 5.2 g/dL (6.4-8.9)
[2016-03-15] MEDS: metroNIDAZOLE IV 500 MG/100ML* 500 MG/100 ML BAG IVPB SCH ×2 (07:28→20:48)
[2016-03-15] MEDS: Hydrocortisone INJ* 100 MG VIAL IV SCH ×2 (07:28→08:54)
--- NOTE | 2016-03-15 07:52 | RAD ---
Indication: Small bowel obstruction. Assess infiltrates. Comparison: March 14, 2016 chest radiograph and March 11, 2016 CT. Technique: Upright AP 0511 hours Report: Tip of RIGHT upper chimney PICC at level of superior vena cava without change. Tip of nasogastric tube at level of gastric body antrum without change. Midline abdominal cutaneous nabeel noted. Bilateral mild patchy alveolar infiltrates without significant change. Grossly clear pleural spaces. The lung apices are partially excluded from the [id number]. No conspicuous pneumothorax. Upper normal heart size. Unremarkable central pulmonary vasculature. IMPRESSION: No significant change in mild bilateral alveolar infiltrates compared with March 14, 2016 concerning for potential bronchopneumonia. Interval decrease in pleural effusions compared with March 11, 2016 CT.
[2016-03-15] MEDS ORDERED: Magnesium Oxide TAB* 400 MG PO ONE (08:29)
[2016-03-15] MEDS ORDERED: Potassium Chloride LIQUID* 20 MEQ PACKET PO ONE (08:31)
--- NOTE | 2016-03-15 09:04 | PN ---
Progress Note - Progress Note Note: Progress Note - Critical Care 24 hour events/significant events: -became more hypoxic yesterday, peep increased to 10 -still on propofol, still intubated, awakens, follows commands -TPN infusion, remains off pressors -additional lasix 20mg x2 doses, with negative balance -electrolyte repletions given. -febrile overnight to 102.3 max. -this morning, low exp volumes, ETT balloon had low air, additional air placed to increased MinVentilation. Vitals: Tmax 102.3 Vital Signs Temp 98.8 F 03/15/16 08:00 Pulse 100 03/15/16 08:30 Resp 24 03/15/16 08:49 BP 115/57 03/15/16 08:30 Pulse Ox 98 03/15/16 08:30 Intake & Output 03/14/16 03/15/16 03/15/16 18:59 06:59 18:59 Intake Total 1983 2216 0 Output Total 1700 2650 Balance 283 -434 0 Weight 162 lb 7.691 oz Intake: IV Fluids 580 117 NS 267 117 kcl in 100 ns 200 propofol 113 IVPB 331 NS 331 Medicated IV 275 CC - Propofol/Diprivan 275 TPN/PPN 642 1343 Oral 0 0 Packed Cells 460 Platelets 301 NG Tube Irrigate Amount 150 Output: NG Tube Drainage Amount 100 100 Stafford 1600 2550 Other: # Bowel Movements 0 0 0 O2/Vent: AC 18/450/+10/35%, sat 94%; rr 22, MinV exp was 5.6 -> increased to 12 after ETT ballon adjustment. Medications: Current Medications Acetaminophen (Tylenol Adult Liq*) 650 mg PO Q4H PRN PRN Reason: FEVER/PAIN Last Admin: 03/15/16 04:14 Dose: 650 mg Chlorhexidine Gluconate (Peridex Mouth Wash 0.12%*) 15 ml TOPICAL Q4HR [facility]LENE Last Admin: 03/15/16 05:04 Dose: Not Given Fentanyl Citrate (Fentanyl*) 25 mcg IV SLOW PU Q2H PRN PRN Reason: PAIN Last Admin: 03/14/16 00:35 Dose: 25 mcg Heparin Sodium (Porcine) (Heparin Flush Picc/Ml/Cvc(*)) 1 - 3 ml FLUSH 0600, 1800 CHARLENE PRN Reason: Protocol Last Admin: 03/15/16 05:04 Dose: Not Given Hydrocortisone Sodium Succinate (Solu-Cortef*) 100 mg IV DAILY [facility] Last Admin: 03/15/16 08:54 Dose: Not Given Hydromorphone HCl (Dilaudid Iv*) 1 mg IV Q1H PRN PRN Reason: PAIN - SEVERE Last Admin: 03/15/16 04:15 Dose: 1 mg Metronidazole/Sodium Chloride (Flagyl 500 Mg Ivpb*) 500 mg in 100 mls @ 100 mls /hr IVPB Q12H [facility] Last Admin: 03/15/16 07:28 Dose: 100 mls/hr Piperacillin Sod/Tazobactam Sod (Zosyn 3.375 Gm In Ns Premix*) 3.375 gm in 100 mls @ 200 mls/hr IVPB 0000,0600,1200,1800 [facility] Last Admin: 03/15/16 05:44 Dose: 200 mls/hr Propofol (Diprivan*) 100 mls @ 9.156 mls/hr IV .(Initial Rate) [facility] PRN Reason: 20 MCG/KG/MIN Last Admin: 03/15/16 06:22 Dose: 18 mls/hr Norepinephrine Bitartrate (Levophed 16 Mcg/Ml Premix Bag*) 4,000 mcg in 250 mls @ 37.5 mls/hr IV .INITIAL RATE [facility] PRN Reason: 10 MCG/MIN Last Admin: 03/13/16 10:35 Dose: 15 mls/hr Dextrose 500 ml/ Amino Acids 1 ,250 ml/ Fat Emulsion Intravenous 250 ml/ Sodium Chloride 50 meq/ Potassium Chloride 80 meq/ Potassium Phosphate 15 mmole/ Calcium Gluconate 15 meq/ Magnesium Sulfate 10 meq/ Multivitamins 10 ml/ Trace Metals 3 ml/Insulin Human Regular 15 units / Nutrition (Parenteral) 2,105.371 mls @ 87.724 mls/hr TPN 1700 [facility] Last Admin: 03/14/16 16:37 Dose: 87.724 mls/hr Influenza Virus Vaccine (Fluarix *Quad* *) 0.5 ml IM .ONCE ONE Stop: 03/16/16 08:01 Magnesium Oxide (Magox 400 Tab*) 800 mg PO ONCE ONE Stop: 03/15/16 08:30 Magnesium Oxide (Magox 400 Tab*) 400 mg PO DAILY [facility] Ondansetron HCl (Zofran Inj*) 4 mg IV Q4H PRN PRN Reason: NAUSEA/VOMITING Last Admin: 03/09/16 22:23 Dose: 4 mg Pantoprazole Sodium (Protonix Iv*) 40 mg IV Q24H [facility] Last Admin: 03/14/16 13:22 Dose: 40 mg Potassium Chloride (Klor-Con Liquid*) 40 meq PO ONCE ONE Stop: 03/15/16 08:32 Physical Exam: General- intubated, sedated, opens eyes, moves ext, not diaphoretic or distressed HEENT- pallor+, no icterus, moist mucous membranes Neck- jvd+, soft CVS- normal rate, normal rhythm, no murmur Resp- bilateral air entry, scattered rhales, no rhonchi/wheeze, no acc muscle use, not tachypneic, intubated Abdomen- soft, nontender, nondistended, no rebound, bowel sounds present; surgical site intact midline; wen-anal fistula present with minimal drainage Ext pulses+, warm, edema+/gen anasarca; left posterior thigh fistula has mild discharge still, no erythema Skin - see above, mild anasarca+, fistulas as noted above. Neuro intubated, on sedation, opens eyes, tracks, spont movement of ext but sleepy. Labs: Laboratory Results - last 24 hr 03/13/16 03/14/16 03/14/16 04:50 10:47 14:09 WBC RBC Hgb Hct MCV MCH MCHC RDW Plt Count MPV Immature Gran % (Auto) Neut % (Auto) Lymph % (Auto) [place] % (Auto) Eos % (Auto) Baso % (Auto) Absolute Neuts (auto) Absolute Lymphs (auto) Absolute Monos (auto) Absolute Eos (auto) Absolute Basos (auto) Absolute Nucleated RBC Neutrophils % Band Neutrophils % Lymphocytes % Monocytes % Metamyelocytes % Myelocytes % Nucleated RBC % Toxic Granulation Normal RBC Morphology Hypochromasia Macrocytosis Stomatocytes Haptoglobin 251 H Patient Temperature ABG pH ABG pCO2 ABG pO2 ABG HCO3 ABG O2 Saturation ABG Base Excess Respiration Rate Ventilator Type Vent Mode FiO2 Inspiratory Time PEEP Pressure Support Pressure Control EPAP IPAP BiPAP Sodium Potassium Chloride Carbon Dioxide Anion Gap BUN Creatinine Est GFR ( Amer) Est GFR (Non-Af Amer) BUN/Creatinine Ratio Glucose POC Glucose (mg/dL) 218 H 230 H Calcium Phosphorus Magnesium Total Bilirubin AST ALT Alkaline Phosphatase Total Protein Albumin Globulin Albumin/Globulin Ratio Triglycerides Urine Color Urine Appearance Urine pH Ur Specific [place] Urine Protein Urine Ketones Urine Blood Urine Nitrate Urine Bilirubin Urine Urobilinogen Ur Leukocyte Esterase Urine WBC (Auto) Urine RBC (Auto) Ur Squamous Epith Cells Urine Bacteria Hyaline Casts Urine Glucose 03/14/16 03/14/16 03/14/16 14:15 15:40 17:00 WBC RBC Hgb Hct MCV MCH MCHC RDW Plt Count MPV Immature Gran % (Auto) Neut % (Auto) Lymph % (Auto) [place]cal[place] % (Auto) Eos % (Auto) Baso % (Auto) Absolute Neuts (auto) Absolute Lymphs (auto) Absolute Monos (auto) Absolute Eos (auto) Absolute Basos (auto) Absolute Nucleated RBC Neutrophils % Band Neutrophils % Lymphocytes % Monocytes % Metamyelocytes % Myelocytes % Nucleated RBC % Toxic Granulation Normal RBC Morphology Hypochromasia Macrocytosis Stomatocytes Haptoglobin Patient Temperature 99.9 ABG pH 7.52 H ABG pCO2 36 ABG pO2 79 L ABG HCO3 29.8 ABG O2 Saturation 99.1 H ABG Base Excess 6.2 H Respiration Rate 33 Ventilator Type 450 Vent Mode Cmv FiO2 35 Inspiratory Time .75 PEEP 10 Pressure Support Not Reportable Pressure Control Not Reportable EPAP Not Reportable IPAP Not Reportable BiPAP Not Reportable Sodium Potassium 2.8 L Chloride Carbon Dioxide Anion Gap BUN Creatinine Est GFR ( Amer) Est GFR (Non-Af Amer) BUN/Creatinine Ratio Glucose POC Glucose (mg/dL) Calcium Phosphorus Magnesium Total Bilirubin AST ALT Alkaline Phosphatase Total Protein Albumin Globulin Albumin/Globulin Ratio Triglycerides Urine Color Yellow Urine Appearance Clear Urine pH 5.0 Ur Specific [place] 1.012 Urine Protein Negative Urine Ketones Negative Urine Blood 2+ H Urine Nitrate Negative Urine Bilirubin Negative Urine Urobilinogen Negative Ur Leukocyte Esterase Negative Urine WBC (Auto) Absent Urine RBC (Auto) 3+(>10/hpf) H Ur Squamous Epith Cells Present H Urine Bacteria Absent Hyaline Casts Present H Urine Glucose Negative 03/14/16 03/14/16 03/14/16 17:00 17:59 22:07 WBC 4.3 RBC 3.36 L Hgb 8.8 L Hct 27 L MCV 81 MCH 26 L MCHC 33 RDW 17 H Plt Count 71 L D MPV 8 Immature Gran % (Auto) 32 H Neut % (Auto) 87.4 H Lymph % (Auto) 7.9 L Metcalfe % (Auto) 3.2 Eos % (Auto) 0.2 Baso % (Auto) 1.3 Absolute Neuts (auto) 3.8 Absolute Lymphs (auto) 0.3 L Absolute Monos (auto) 0.1 Absolute Eos (auto) 0 Absolute Basos (auto) 0.1 Absolute Nucleated RBC 0 Neutrophils % 48 Band Neutrophils % 26 H Lymphocytes % 13 L Monocytes % 7 Metamyelocytes % 5 H Myelocytes % 1 Nucleated RBC % 0 Toxic Granulation 1+ Normal RBC Morphology Not Reportable Hypochromasia 2+ Macrocytosis 1+ Stomatocytes 1+ Haptoglobin Patient Temperature ABG pH ABG pCO2 ABG pO2 ABG HCO3 ABG O2 Saturation ABG Base Excess Respiration Rate Ventilator Type Vent Mode FiO2 Inspiratory Time PEEP Pressure Support Pressure Control EPAP IPAP BiPAP Sodium Potassium Chloride Carbon Dioxide Anion Gap BUN Creatinine Est GFR ( Amer) Est GFR (Non-Af Amer) BUN/Creatinine Ratio Glucose POC Glucose (mg/dL) 195 H 172 H Calcium Phosphorus Magnesium Total Bilirubin AST ALT Alkaline Phosphatase Total Protein Albumin Globulin Albumin/Globulin Ratio Triglycerides Urine Color Urine Appearance Urine pH Ur Specific [place] Urine Protein Urine Ketones Urine Blood Urine Nitrate Urine Bilirubin Urine Urobilinogen Ur Leukocyte Esterase Urine WBC (Auto) Urine RBC (Auto) Ur Squamous Epith Cells Urine Bacteria Hyaline Casts Urine Glucose 03/15/16 03/15/16 05:15 05:15 WBC 6.5 RBC 3.62 L Hgb 9.4 L Hct 29 L MCV 80 MCH 26 L MCHC 32 RDW 17 H Plt Count 71 L MPV 9 Immature Gran % (Auto) Neut % (Auto) Lymph % (Auto) [place] % (Auto) Eos % (Auto) Baso % (Auto) Absolute Neuts (auto) Absolute Lymphs (auto) Absolute Monos (auto) Absolute Eos (auto) Absolute Basos (auto) Absolute Nucleated RBC Neutrophils % Band Neutrophils % Lymphocytes % Monocytes % Metamyelocytes % Myelocytes % Nucleated RBC % Toxic Granulation Normal RBC Morphology Hypochromasia Macrocytosis Stomatocytes Haptoglobin Patient Temperature ABG pH ABG pCO2 ABG pO2 ABG HCO3 ABG O2 Saturation ABG Base Excess Respiration Rate Ventilator Type Vent Mode FiO2 Inspiratory Time PEEP Pressure Support Pressure Control EPAP IPAP BiPAP Sodium 153 H Potassium 3.0 L Chloride 114 H Carbon Dioxide 32 Anion Gap 7 BUN 34 H Creatinine 0.62 Est GFR ( Amer) 128.1 Est GFR (Non-Af Amer) 99.6 BUN/Creatinine Ratio 54.8 H Glucose 133 H POC Glucose (mg/dL) Calcium 8.3 L Phosphorus 2.1 L Magnesium 1.8 L Total Bilirubin 0.60 AST 12 L ALT 10 Alkaline Phosphatase 96 Total Protein 5.2 L Albumin 2.8 L Globulin 2.4 Albumin/Globulin Ratio 1.2 Triglycerides 105 Urine Color Urine Appearance Urine pH Ur Specific [place] Urine Protein Urine Ketones Urine Blood Urine Nitrate Urine Bilirubin Urine Urobilinogen Ur Leukocyte Esterase Urine WBC (Auto) Urine RBC (Auto) Ur Squamous Epith Cells Urine Bacteria Hyaline Casts Urine Glucose Imaging: cxr 03/13 - improved aeration bilaterally, improved patchy infiltrates, ett above juan, PICC in place on right, minimal effusion cxr 03/12 - bilateral pulm congestion/edema, left > right, ett above juan cxr 03/14 - bilateral pulm congestion minimal, ett above juan, no sig effusion. cxr 03/15 - bilateral pulm infiltrates/congestion similar as prior, no effusion/ ptx. 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 sedation holidays daily, neuro checks as per protocol. fall prec. keep RAAS -1/-2 CVS- septic shock resolved, off levophed. on hydrocortisone q12h -> dec to qdaily. TPN adjusted to have hypotonic solution. still grossly overloaded but diuresed well with lasix, negative balance. repeat IV lasix today after electrolytes repleted. may need ngt free water for hypernatremia. she is 3rd spacing. minimize IV inputs, goal negative balance. TTE today to eval LV function/valve function, why does she go into recurrent pulm edema? Resp- on AC mode now, MVen improved. monitor exp volumes and ETT balloon, no overt leak noticed now. Still on high peep, fio2 increased. will try to augment diuresis in attempt to improve pulm congestion. no plan for extubation given high o2 requirements today. CXR reviewed, no clear/new infiltrate to suspect pneumonia. ID- on zosyn/metronidazole to cover GI/anaerobic organisms. febrile 102.3. no blood cx sent last night, will reculture if spikes again. wbc normalized. cont abx. fistulas noted to continue drainage, no cellulitus signs noted around them. GI- s/p ileocolonic resection and anas for enterocut fistula. abdomen is soft, no signs of distention/rebound/tenderness. starting some PO intake from NGT, if tolerating, will see if NGT feeds can be started tomorrow. TPN started. NGT to intermittent suction with slowed output. follow fistula outputs. continue zosyn and flagyl. Renal- good urine output, negative balance, but BUN and Na rising now. she may be dry now. Cont to replete K and Mg, oral and TPN doses adjusted. stafford in place. IV TPN infusion ongoing. Heme- hg stable, no further prbc needed. s/p plt transfusion x1 yesterday, now 71k and stable. still no clear bleeding source noted. no dvt sq proph given recent coagulopathy/dec hg/thrombocytopenia. compression boots for dvt prophylaxis. Endo- BS improved, d5 in TPN reduced and insulin added. goal BS<180. Musculsk- bed rest for now, pressure ulcer prophylaxis DVT prophylaxis -compression boots GI prophylaxis -protonix Central Line - picc Right arm Arterial Line - none Stafford Cathetor - yes Code Status - Full Code Disposition: ICU for shock, respiratory failure Total Critical Care time is 35 minutes, excluding procedures/teaching Amandeep Dawn [employer]
[2016-03-15] MEDS ORDERED: AMINO ACID INFUSION TPN SCH ×24 (10:42→17:00)
[2016-03-15] MEDS ORDERED: [UNRECOGNIZED DRUG - OTHER] TPN SCH ×24 (10:42→17:00)
[2016-03-15] MEDS ORDERED: DEXTROSE TPN SCH ×24 (10:42→17:00)
[2016-03-15] MEDS ORDERED: WATER TPN SCH ×24 (10:42→17:00)
[2016-03-15] MEDS ORDERED: TPN TPN SCH ×24 (10:42→17:00)
[2016-03-15] MEDS: Pantoprazole IV* 40 MG IV SCH (13:01)
--- NOTE | 2016-03-15 13:56 | ECHO ---
Patient: KVNG ALTAMIRANO [facility] Rec#: [id number] : 1960 Date: 03/15/2016 Age: 55y Height: 165.1 cm / 65.0 in Weight: 76.66 kg / 169.0 lbs Sex: F BSA: 1.84 Room#: [facility] Admit Date#: 03/10/2016 Type: Inpatient Referring: Amandeep Dawn Reading: Stalin Burk MD Retail Route Supervisor: Kayla Hoffman RDCS CC: Jayesh Rowley MD Transthoracic Echocardiogram Indication: Resp abn/ Edema BP: 115/57 HR: 97 Rhythm: NSR Findings History: To OR 03/09/16 for colon resection. No prior med history. Currently intubated, sedated and mechanically ventilated. Technical Comments: The study is technically limited due to patient being intubated and on a ventilator.Completed at 1115. Left Ventricle: The left ventricular chamber size is normal. Left ventricular systolic function is at the lower limits of normal. The estimated ejection fraction is 50-55%. The patient was unable to perform a Valsalva maneuver. Left Atrium: The left atrium is slightly dilated. Right Ventricle: The right ventricular cavity size is normal. The right ventricular global systolic function is normal. Right Atrium: The right atrium is mildly dilated. Aortic Valve: The aortic valve is trileaflet. There is no evidence of aortic regurgitation. There is no evidence of aortic stenosis. Mitral Valve: The mitral valve leaflets are mildly thickened. There is mild to moderate mitral regurgitation. There is no evidence of mitral stenosis. Tricuspid Valve: The tricuspid valve leaflets are normal. There is mild to moderate tricuspid regurgitation. Unable to estimate the right ventricular systolic pressure. Pulmonic Valve: The pulmonic valve appears normal. There is mild pulmonic regurgitation. There is no pulmonic stenosis. Pericardium: A pericardial fat pad is visualized. Aorta: There is no dilatation of the ascending aorta. The aortic arch is not well visualized. There is no dilation of the aortic root. Pulmonary Artery: The main pulmonary artery appears normal. Venous: Unable to accurately comment on the size collapsibility of the IVC as the patient in known to be on mechanical ventilation.Views limited. Conclusions Left ventricular systolic function is at the lower limits of normal. The estimated ejection fraction is 50-55%. The left ventricular chamber size is normal. Left ventricular systolic function is at the lower limits of normal. The estimated ejection fraction is 50-55%. There is mild to moderate mitral regurgitation. There is mild to moderate tricuspid regurgitation. Unable to estimate the right ventricular systolic pressure, best estimate appears normal PA pressure.. There is mild pulmonic regurgitation. No reports of prior studies offered for comparison. Measurements Name Value Normal Range RVIDd (AP) 2D 3.9 cm (0.9 - 2.6) RVDdMajor (2D) 3.3 cm (2.2 - 4.4) RAd ISD 4CH 6 cm (3.4 - 4.9) RA (A4C)W 4.3 cm (2.9 - 4.6) IVSd (2D) 0.5 cm (0.6 - 1) LVPWd (2D) 1 cm (0.6 - 1) LVIDd (2D) 4.3 cm (3.6 - 5.4) LVIDs (2D) 3.5 cm - LV FS (2D) 20 % (25 - 45) Aortic Annulus 2 cm (1.4 - 2.6) Ao root diameter (2D) 2 cm (2.1 - 3.5) Ascending Ao 2.9 cm (2.1 - 3.4) LA dimension (AP) 2D 4 cm (2.3 - 3.8) LAd ISD 4CH 5.5 cm (2.9 - 5.3) LA ISD 4CH W 4.2 cm (2.5 - 4.5) Name Value Normal Range LA ESV SP 4CH (A/L) 54 ml - LA ESV SP 2CH (A/L) 52 ml - LA ESV BP (A/L) 56 ml - LA ESV BP (A/L) index 30.67 ml/m2 - LA ESV SP 4CH (MOD) 50 ml - LA ESV SP 2CH (MOD) 51 ml - Name Value Normal Range MV E-wave Vmax 0.9 m/sec - MV deceleration time 176 msec - MV A-wave Vmax 0.5 m/sec - MV E:A ratio 1.63 ratio - LV septal e' Vmax 0.11 m/sec - LV lateral e' Vmax 0.14 m/sec - LV E:e' septal ratio 8.18 ratio - LV E:e' lateral ratio 6.43 ratio - Name Value Normal Range AV Vmax 1.4 m/sec - AV VTI 26.1 cm - AV peak gradient 8.1 mmHg - AV mean gradient 4.16 mmHg - LVOT Vmax 1.1 m/sec - LVOT VTI 20.1 cm - LVOT peak gradient 5.04 mmHg - LVOT mean gradient 2.66 mmHg - Name Value Normal Range TR Vmax 2.6 m/sec - TR peak gradient 27 mmHg - RAP 8 mmHg - RVSP 35 mmHg - Name Value Normal Range PV Vmax 0.8 m/sec - PV peak gradient 2.8 mmHg -
[2016-03-15] MEDS ORDERED: Iohexol 300* (CONTRAST) 10 ML SDV IV SCH (18:01)
--- NOTE | 2016-03-15 21:37 | RAD ---
Indication: Enterocutaneous fistula. CT of the abdomen and pelvis was performed after oral and IV contrast administration. Coronal and sagittal reconstructed images were obtained. Administered 96.8 ml of OMNIPAQUE 300 mgi/ml was given according to hospital protocol. Lung bases demonstrate left pleural effusion with left basilar atelectasis. Heart is of normal size without evidence of pericardial effusion. Liver is normal in size. No focal lesions or intrahepatic biliary duct dilatation is noted. Ascites is noted. The gallbladder demonstrates distended gallbladder with high density material in the dependent portion. No adrenal lesions are noted. The kidneys demonstrate symmetric nephrograms. There is a small amount of free air noted. This may be postoperative in nature. No evidence of extraluminal contrast is noted. Surgical clips are noted in the right lower quadrant. There is a perianal skin defect noted which extends to the level of the anus. There is a left ovarian cyst measuring up to 5.4 cm. Also noted in the right posterior thigh are skin defect which may represent localized ulcers. Diffuse small bowel wall thickening is noted of uncertain etiology. IMPRESSION: ASCITES IS NOTED. THERE ARE SEVERAL AREAS OF FREE INTRAPERITONEAL AIR NOTED WHICH IS LIKELY DUE TO POSTOPERATIVE NATURE. LEFT OVARIAN CYST IS NOTED. THERE IS A PERIANAL SKIN DEFECT WHICH EXTENDS RIGHT TO THE ANUS. NO OBVIOUS EVIDENCE OF THE ENTEROCUTANEOUS FISTULA IS NOTED WITH NO EVIDENCE OF EXTRALUMINAL CONTRAST. CHOLELITHIASIS. MODERATE AMOUNT OF ASCITES IS NOTED. NONSPECIFIC SMALL BOWEL WALL THICKENING IS NOTED. ROBBI, THE NURSE TAKING CARE THE PATIENT WAS NOTIFIED OF RESULTS IN THE ICU at 2133 hours.
[2016-03-16] MEDS: HYDROmorphone INJ* 1 MG/ML CARPUJECT SYRINGE IV PRN ×4 (00:15→15:15)
[2016-03-16] MEDS: Acetaminophen ADULT LIQ* 650 MG/20.3 ML UDC PO PRN (00:26)
[2016-03-16] MEDS ORDERED: Metoprolol Tartrate IV* 1 MG/ML 5 ML VIAL ONE (00:56)
[2016-03-16] MEDS ORDERED: Metoprolol Tartrate IV* 1 MG/ML 5 ML VIAL IV ONE (02:00)
[2016-03-16] MEDS: Propofol* 100 ML IV SCH ×2 (02:54→14:39)
[2016-03-16] MEDS ORDERED: HYDROmorphone PCA* 20 MG/20 ML PCA.SYRING PCA SCH (04:00)
[2016-03-16 06:13] LABS: Albumin 2.5 g/dL (3.2-5.2); BUN/Creatinine Ratio 61.1 (8-20); Calcium 8.4 mg/dL (8.6-10.3); EGFR African American 150.2 (>60); EGFR Non-African American 116.8 (>60); Globulin 2.4 g/dL (2-4); Phosphorus 1.6 mg/dL (2.5-5.0); Potassium 3.5 mmol/L (3.5-5.0); Total Protein 4.9 g/dL (6.4-8.9)
[2016-03-16] MEDS: Norepinephrine 16MCG/ML IVPRE* 4,000 MCG/250 ML BAG IV SCH (07:01)
[2016-03-16] MEDS: Chlorhexidine MOUTHWASH 0.12%* 15 ML UDC TOPICAL SCH ×3 (07:02→09:31)
[2016-03-16] MEDS: Piperac/Tazob 3.375 gm in NS* 3.375 GM/100 ML BAG IVPB SCH (07:04)
[2016-03-16] MEDS ORDERED: Influenza VAC *QUAD* 2016-17* 0.5 ML SYRINGE IM ONE (08:00)
--- NOTE | 2016-03-16 08:40 | PN ---
Progress Note - Progress Note Note: Progress Note - Critical Care 24 hour events/significant events: -CT abd/pevlis with oral/iv contrast done last night -overnight continued drainage from fistulas -temperature spike noted 101.4, then became hypotensive to 70s, restarted on levophed, given small fluid bolus -remains intubated, on propofol, on levophed at 5, 300cc NS bolus given total. Vitals: Tmax 101.4 Vital Signs Temp 99.9 F 03/16/16 08:00 Pulse 132 03/16/16 06:00 Resp 34 03/16/16 06:00 BP 91/35 03/16/16 06:00 Pulse Ox 96 03/16/16 06:00 Intake & Output 03/15/16 03/16/16 03/16/16 18:59 06:59 18:59 Intake Total 1292 2072 Output Total 600 1400 Balance 692 672 Weight 162 lb 164 lb 7.437 oz Intake: IV Fluids 380 119 NS 380 119 IVPB 327 NS 327 Medicated IV 125 200 CC - Propofol/Diprivan 125 200 TPN/PPN 787 1276 Oral 0 0 NG Tube Irrigate Amount 150 Output: Stafford 600 1400 Other: # Bowel Movements 0 0 O2/Vent: AC 18/450/+10/35%, sat 100%; rr 22 Medications: Acetaminophen (Tylenol Adult Liq*) 650 mg PO Q4H PRN PRN Reason: FEVER/PAIN Last Admin: 03/16/16 00:26 Dose: 650 mg Chlorhexidine Gluconate (Peridex Mouth Wash 0.12%*) 15 ml TOPICAL Q4HR [facility] Last Admin: 03/16/16 07:04 Dose: Not Given Fentanyl Citrate (Fentanyl*) 25 mcg IV SLOW PU Q2H PRN PRN Reason: PAIN Last Admin: 03/14/16 00:35 Dose: 25 mcg Heparin Sodium (Porcine) (Heparin Flush Picc/Ml/Cvc(*)) 1 - 3 ml FLUSH 0600, 1800 [facility] PRN Reason: Protocol Last Admin: 03/16/16 07:02 Dose: Not Given Hydrocortisone Sodium Succinate (Solu-Cortef*) 100 mg IV DAILY [facility] Last Admin: 03/15/16 08:54 Dose: Not Given Hydromorphone HCl (Dilaudid Iv*) 1 mg IV Q1H PRN PRN Reason: PAIN - SEVERE Last Admin: 03/16/16 03:20 Dose: 1 mg Metronidazole/Sodium Chloride (Flagyl 500 Mg Ivpb*) 500 mg in 100 mls @ 100 mls /hr IVPB Q12H [facility] Last Admin: 03/15/16 20:48 Dose: 100 mls/hr Piperacillin Sod/Tazobactam Sod (Zosyn 3.375 Gm In Ns Premix*) 3.375 gm in 100 mls @ 200 mls/hr IVPB 0000,0600,1200,1800 [facility] Last Admin: 03/16/16 07:04 Dose: 200 mls/hr Propofol (Diprivan*) 100 mls @ 9.156 mls/hr IV .(Initial Rate) [facility] PRN Reason: 20 MCG/KG/MIN Last Admin: 03/16/16 02:54 Dose: 9.156 mls/hr Norepinephrine Bitartrate (Levophed 16 Mcg/Ml Premix Bag*) 4,000 mcg in 250 mls @ 37.5 mls/hr IV .INITIAL RATE [facility] PRN Reason: 10 MCG/MIN Last Admin: 03/16/16 07:01 Dose: 37.5 mls/hr Dextrose 500 ml/ Amino Acids 1 ,250 ml/ Fat Emulsion Intravenous 250 ml/ Sodium Chloride 50 meq/ Potassium Chloride 50 meq/ Potassium Phosphate 20 mmole/ Calcium Gluconate 10 meq/ Magnesium Sulfate 10 meq/ Multivitamins 10 ml/ Trace Metals 3 ml/Insulin Human Regular 15 units / Nutrition (Parenteral) 2,081.2847 mls @ 86.7 mls/hr TPN 1700 [facility] Stop: 03/16/16 16:59 Last Admin: 03/15/16 18:53 Dose: 86.7 mls/hr Hydromorphone HCl (Dilaudid Scheduling Coordinator*) 20 mg in 20 mls @ 0 mls/hr [employer] .change Q24H [facility]; Per Protocol PRN Reason: Protocol Last Admin: 03/16/16 04:30 Dose: 0.3 mls/hr Influenza Virus Vaccine (Fluarix *Quad* *) 0.5 ml IM .ONCE ONE Stop: 03/16/16 08:01 Iohexol (Omnipaque 300* (Contrast)) 97 ml IV ONCE [facility] Stop: 03/17/16 23:59 Last Admin: 03/15/16 20:20 Dose: 97 ml Magnesium Oxide (Magox 400 Tab*) 400 mg PO DAILY [facility] Ondansetron HCl (Zofran Inj*) 4 mg IV Q4H PRN PRN Reason: NAUSEA/VOMITING Last Admin: 03/09/16 22:23 Dose: 4 mg Pantoprazole Sodium (Protonix Iv*) 40 mg IV Q24H [facility] Last Admin: 03/15/16 13:01 Dose: 40 mg Physical Exam: General- intubated, sedated, opens eyes, moves ext, not diaphoretic or distressed HEENT- pallor+, no icterus, moist mucous membranes Neck- jvd+, soft CVS- normal rate, normal rhythm, no murmur Resp- bilateral air entry, scattered rhales, no rhonchi/wheeze, no acc muscle use, not tachypneic, intubated Abdomen- soft, nontender, nondistended, no rebound, bowel sounds present; surgical site intact midline; wen-anal fistula present with minimal drainage Ext pulses+, warm, edema+/gen anasarca; left posterior thigh fistula has mild discharge still, no erythema Skin - see above, mild anasarca+, fistulas as noted above. Neuro intubated, on sedation, opens eyes, tracks, spont movement of ext but sleepy. Labs: Laboratory Results - last 24 hr 03/15/16 03/15/16 03/15/16 04:01 11:43 18:24 Sodium Potassium Chloride Carbon Dioxide Anion Gap BUN Creatinine Est GFR ( Amer) Est GFR (Non-Af Amer) BUN/Creatinine Ratio Glucose POC Glucose (mg/dL) 167 H 158 H 151 H Calcium Phosphorus Magnesium Total Bilirubin AST ALT Alkaline Phosphatase Total Protein Albumin Globulin Albumin/Globulin Ratio Triglycerides 03/16/16 03/16/16 00:10 05:50 Sodium 150 H Potassium 3.5 Chloride 113 H Carbon Dioxide 31 Anion Gap 6 BUN 33 H Creatinine 0.54 Est GFR ( Amer) 150.2 Est GFR (Non-Af Amer) 116.8 BUN/Creatinine Ratio 61.1 H Glucose 89 POC Glucose (mg/dL) 124 H Calcium 8.4 L Phosphorus 1.6 L Magnesium 2.0 Total Bilirubin 1.00 AST 19 ALT 11 Alkaline Phosphatase 76 Total Protein 4.9 L Albumin 2.5 L Globulin 2.4 Albumin/Globulin Ratio 1.0 Triglycerides 100 Imaging: cxr 03/13 - improved aeration bilaterally, improved patchy infiltrates, ett above juan, PICC in place on right, minimal effusion cxr 03/12 - bilateral pulm congestion/edema, left > right, ett above juan cxr 03/14 - bilateral pulm congestion minimal, ett above juan, no sig effusion. cxr 03/15 - bilateral pulm infiltrates/congestion similar as prior, no effusion/ ptx. CT abd/pelvis 03/15 - results reviewed Assessment: 55 F with SBO and enterocutaneous fistula s/p resection of ileocolon with primary anastamosis and take down of enterocutaneous fistula, remaining with high metabolic demands; -Enterocut fistula s/p resection of ileocolon/primary anastamosis -Cutaneous infection, cellulitus vs deep tissue infection, +/- nec fasc -Severe prot-calorie nutrition -Vitamin, electrolyte deficiency -Septic Shock, resolved -Acute hypoxic resp failure -B/l pleural effusions, compression atelectasis- improved -Pulmonary Edema, improved -Encephelopathy, met/toxic/septic -Coagulopathy, improved -Thrombocytopenia of sepsis -Hypoglycemia, improved Plan: Neuro- on propofol sedation, awakens. sedation holidays daily, neuro checks as per protocol. fall prec. keep RAAS -1/-2 CVS- septic shock again, on levophed. rebolus IVF 1 liter NS now, blood cx stat. on hydrocortisone qdaily 100mg. TPN continued. TTE reviewed, normal LV function with mild/mod MR. Resp- on AC mode now, MVen improved. No overt leak noticed now. Fio2 improved. no findings on cxr which are new or indicative of pneumonia. repeat cxr today. no plan for extubation yet given shock state. ID- on zosyn/metronidazole to cover GI/anaerobic organisms. febrile 101.4 and now on pressors. will obtain ID consult. will need to broaden abx to meropenem. dose vancomycin x1 gm now. blood cx to be sent. check cbc. fistulas noted to continue drainage, no cellulitus signs noted around them. GI- s/p ileocolonic resection and anas for enterocut fistula. still has large output of liquid fecalent material. CT findings reviewed, possible residual small fistula around rectosigmoid area. abdomen soft, was distended overnight but not tense now or distended much. will make NPO again given possible leak. TPN continued. NGT to intermittent suction with slowed output. follow fistula outputs. may need to broaden IV abx coverage. Renal- good urine output, negative balance, but BUN and Na rising now. she may be dry now. Cont to replete K and Mg, oral and TPN doses adjusted. stafford in place. IV TPN infusion ongoing. no further diuretics at this time. IVF bolus for sepsis. Heme- hg stable, no further prbc needed. check cbc today. no dvt sq proph given recent coagulopathy/dec hg/thrombocytopenia. compression boots for dvt prophylaxis. Endo- BS improved, d5 in TPN reduced and insulin added. goal BS<180. Musculsk- bed rest for now, pressure ulcer prophylaxis DVT prophylaxis -compression boots GI prophylaxis -protonix Central Line - picc Right arm Arterial Line - none Stafford Cathetor - yes Code Status - Full Code Disposition: ICU for shock, respiratory failure; discussion with surgery for transfer to higher level of care given more complex surgical interventions which may be needed, worsening shock overnight, persistent fistula and drainage , may need redo ex-lap. Will d/w family. Total Critical Care time is 35 minutes, excluding procedures/teaching Amandeep Dawn Support Services Specialist
[2016-03-16] MEDS ORDERED: Magnesium Oxide TAB* 400 MG PO SCH (09:00)
[2016-03-16 09:17] LABS: Hematocrit 33 % (35-47); Hemoglobin 10.4 g/dl (12.0-16.0); Mean Corpuscular HGB Conc 32 g/dl (31-36); Mean Corpuscular Hemoglobin 26 pg (27-31); Mean Corpuscular Volume 81 fL (80-97); Mean Platelet Volume 10 um3 (7.4-10.4); Red Blood Count 4.09 10^6/ul (4.0-5.4); Red Cell Distribution Width 17 % (10.5-15); White Blood Count 26.2 10^3/ul (3.5-10.8)
[2016-03-16] MEDS: metroNIDAZOLE IV 500 MG/100ML* 500 MG/100 ML BAG IVPB SCH (09:30)
[2016-03-16] MEDS: Hydrocortisone INJ* 100 MG VIAL IV SCH (09:30)
[2016-03-16] MEDS ORDERED: Meropenem 1 GM PREMIX(*) 1 GM/50 ML BAG IV SCH (09:30)
[2016-03-16] MEDS: NS 0.9% 1000 ML* 1,000 ML IV ONE (09:41)
[2016-03-16] MEDS ORDERED: Vancomycin(*) 1,000 MG in NS 0.9% 250 ML* 250 ML IVPB ONE (10:00)
--- NOTE | 2016-03-16 14:01 | DS ---
Discharge Summary Date of Admission: 03/08/2016 Date of Discharge: 03/16/2016 Admitting Diagnoses: small bowel obstruction, perianal abscess Discharge Diagnoses: small bowel obstruction s/p ileocolonic resection with primary anastomosis 03/09; enterocutaneous fistula; septic shock, acute hypoxic respiratory failure, Pulmonary congestion, Thrombocytopenia, Protein-calorie malnutrition HPI/Hospital Course: 55y F who presented with abd pain/n/v, consistent with small bowel obstruction. Transferred from outside hospital for surgical intervention. She is s/p ileocolonic resection with primary anastomosis. Found to have ileal fistula on imaging. Post-op hypotension/sepsis managemed with improvement. She had developed anemia, coaguloapathy, thrombocytopenia requiring PRBC, Platelet, FFP transfusions and Vitamin K. Due to respiratory failure on post-op day 3, she was intubated for pulmonary edema. TPN was started for nutrition. There was persistent drainage from cutaneous fistulas around the perianal and right posterior thigh region. Recurrent septic shock as well as persistent enterocutaneous fistula drainage, and possible leakage/ perforation of bowel on CT imaging has now resulted in decision to transfer patient to higher level of care for more advanced colorectal surgical intervention, not available at [facility]. Decision, after being discussed with , is to transfer patient to [facility]. Discussed with intensivst at facility who verbally discussed case with colorectal surgeon. Consultants: Dr Jayesh Rowley (General Surgeon), Dr Amandeep Dawn (Cad Engineer) Procedures/Imaging: CT abd/pelvis w/ oral/IV contrast on 03/09 and 03/15 Discharge Medications: hydrocortisone 100mg iv q12h, meropenem 1gm iv q8h, metronidazole 500mg iv q12h, norepinephrine infusion, TPN infusion, Propofol infusion, Protonix 40mg iv qdaily, Zofran 4mg iv q4h PRN, Vancomycin 1gm IV x1 dose 03/16 Diet: NPO, NGT in place to intermittent suction/gravity, IV TPN infusion. Activity: bedrest Condition upon discharge: critical but stable Disposition: discharge from [facility] and transfer to [facility]; discussed with surgeon Dr Rowley, Cad Engineer at [place], and nursing staff here for transfer. Recommendations: - Follow-up: - Total Discharge time >30minutes Amandeep Dawn MD Cad Engineer
[2016-03-16] MEDS: Pantoprazole IV* 40 MG IV SCH (14:04)
[2016-03-16 14:29] VITALS: BP 99/48
== END 2016-03-16 11:51 | disposition short-term general hospital (02) | DRG 221 ==
LOC: ED 18:47 → SSU 20:25 → UNDOADMOB 20:50 → OBSVTOIN 03-10 09:15 → ICU 03-11 10:00
PROVIDERS: ADMIT Surgery; ATTEND Internal Medicine Critical Care Medicine
PROC: 0DTK0ZZ Resection of Ascending Colon, Open Approach (ICD-10-PCS; 2016-03-09)
PROC: 0DBL0ZZ Excision of Transverse Colon, Open Approach (ICD-10-PCS; 2016-03-09)
PROC: 3E1M38Z Irrigation of Peritoneal Cavity using Irrigating Substance, Percutaneous Approach (ICD-10-PCS; 2016-03-09)
PROC: 0DTH0ZZ Resection of Cecum, Open Approach (ICD-10-PCS; principal; 2016-03-09 13:00)
PROC: 02HV33Z Insertion of Infusion Device into Superior Vena Cava, Percutaneous Approach (ICD-10-PCS; 2016-03-11)
PROC: 30233K1 Transfusion of Nonautologous Frozen Plasma into Peripheral Vein, Percutaneous Approach (ICD-10-PCS; 2016-03-11)
PROC: 0BH17EZ Insertion of Endotracheal Airway into Trachea, Via Natural or Artificial Opening (ICD-10-PCS; 2016-03-12)
PROC: 5A1955Z Respiratory Ventilation, Greater than 96 Consecutive Hours (ICD-10-PCS; 2016-03-12)
PROC: 5A09357 Assistance with Respiratory Ventilation, Less than 24 Consecutive Hours, Continuous Positive Airway Pressure (ICD-10-PCS; 2016-03-12)
PROC: 3E033XZ Introduction of Vasopressor into Peripheral Vein, Percutaneous Approach (ICD-10-PCS; 2016-03-13)
PROC: 3E0336Z Introduction of Nutritional Substance into Peripheral Vein, Percutaneous Approach (ICD-10-PCS; 2016-03-13)
PROC: 30233N1 Transfusion of Nonautologous Red Blood Cells into Peripheral Vein, Percutaneous Approach (ICD-10-PCS; 2016-03-13)
DX: K56.60 Unspecified intestinal obstruction (principal); A41.9 Sepsis, unspecified organism; J96.01 Acute respiratory failure with hypoxia; R65.21 Severe sepsis with septic shock; E43 Unspecified severe protein-calorie malnutrition; G93.41 Metabolic encephalopathy; J90 Pleural effusion, not elsewhere classified; G93.1 Anoxic brain damage, not elsewhere classified; K61.0 Anal abscess; K63.2 Fistula of intestine; J98.11 Atelectasis; J81.1 Chronic pulmonary edema; Z87.891 Personal history of nicotine dependence; K64.4 Residual hemorrhoidal skin tags; Z88.0 Allergy status to penicillin; I48.91 Unspecified atrial fibrillation; E56.9 Vitamin deficiency, unspecified; E16.2 Hypoglycemia, unspecified; R60.1 Generalized edema; K76.0 Fatty (change of) liver, not elsewhere classified; D69.59 Other secondary thrombocytopenia; Z80.52 Family history of malignant neoplasm of bladder; Z80.1 Family history of malignant neoplasm of trachea, bronchus and lung; E86.0 Dehydration; D50.9 Iron deficiency anemia, unspecified; Z68.27 Body mass index [BMI] 27.0-27.9, adult
CPT/HCPCS: 36415; 36600; 71010; 71275; 74177; 80048; 80053; 80076; 81003; 81015; 82272; 82330; 82607; 82803; 83010; 83540; 83550; 83605; 83615; 83735; 84100; 84132; 84478; 85025; 85027; 85049; 85060; 85362; 85384; 85610; 85730; 86850; 86900; 86901; 86922; 86927; 87040; 88307; 93005; 93306; 94002; 94003; 94660; 94760; A9270-GY; C1751; C1776; J1170; J1240; J1720; J1885; J1940; J2185; J2250; J2270; J2405; J2543; J2704; J2795; J3010; J3370; J3411; J3420; J3430; J3475; J3480; J3490; P9016; P9017; P9035; P9045; P9047; Q9967

== ENCOUNTER 2016-04-13 07:41 | Inpatient (IN) | payer OTHER ==
[2016-04-13] MEDS ORDERED: Senna TAB PO PRN (15:53)
[2016-04-13] MEDS ORDERED: Bisacodyl SUPP* 10 MG SUPP PR PRN (15:53)
[2016-04-13] MEDS ORDERED: Magnesium Hydroxide LIQ* 30 ML UDC PO PRN (15:53)
[2016-04-13] MEDS ORDERED: Docusate CAP* 100 MG PO PRN (16:02)
[2016-04-13] MEDS ORDERED: Warfarin TAB(*) 2 MG PO SCH (17:00)
[2016-04-13] MEDS: Loperamide CAP* 2 MG PO SCH (18:00)
[2016-04-13] MEDS: Enoxaparin(*) 60 MG/0.6 ML SYR SUBCUT SCH (21:18)
[2016-04-13] MEDS: Amoxicillin/Clavulanate TAB* 875 MG PO SCH (21:19)
--- NOTE | 2016-04-13 21:35 | HP ---
ADMISSION HISTORY AND PHYSICAL: DATE OF ADMISSION: 04/13/16 REASON FOR ADMISSION: Status post bowel perforation with septic shock. HISTORY OF PRESENT ILLNESS: Ernestina Clifton is a 55-year-old female. She presented to [facility], 03/08/16, with abdominal pain, nausea, and vomiting consistent with a small bowel obstruction. She actually started at [facility]. She had a CAT scan at [facility] and was transferred to [facility] for surgical intervention. She has a history of having had an ileocolonic resection with a primary anastomosis. She was found to have an ileal fistula on imaging. After surgery, she developed hypotension and sepsis. She developed anemia, coagulopathy, and thrombocytopenia. She had to be intubated for respiratory failure. She was started on TPN. There was persistent drainage from the cutaneous fistulas around the perianal and right posterior thigh region. She had followup CAT scans, which showed persistent enterocutaneous fistula drainage and possible leakage and perforation of bowel on CAT scan. She was sent to [facility]. She went to [place] on March 16. At [place], she went back to the operating room and underwent an exploratory laparotomy with a takedown of her ileocolonic anastomosis and was found to have a hole in her rectosigmoid area. 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 She had a drain placed in her right posterior thigh where the fistula tract was. She was able to be weaned off pressors after surgery, extubated after a few days, and able to start on oral diet. She had ileostomy output. She was maintained on broad-spectrum antibiotics with Zosyn and later changed to Cipro and Flagyl. She is on Augmentin at this time. CAT scan imaging showed a perihepatic fluid collection. Also, of note, she developed swelling in her right arm. A PICC line was in place and she had an ultrasound, which showed a DVT. She was started on Coumadin. She became supratherapeutic after 3 small doses of Coumadin and Coumadin was stopped. When her INR normalized, she was started on Lovenox. She was also given fluconazole. She developed an abdominal wound. She had wound cultures, which were unremarkable. She had an episode of urinary retention, but later was able to void. Echocardiogram showed no issues. Her abdominal wound: she has a left sided loop colostomy, she has an end ileostomy in her right lower quadrant, and in the superior portion of her incision in the epigastrum, she has a transverse colon mucous fistula. The midline incision has some separation, with some fascial dehiscence in the midportion. As a result of her prolonged sepsis, she is quite weakened. She has physical therapy and occupational therapy needs. She is now being admitted for inpatient rehab so that she might return to independent living. PAST MEDICAL HISTORY: Not really significant, although she had a in the past. CURRENT MEDICATIONS: Include: 1. Augmentin. 2. She was on Lovenox. 3. Imodium. 4. Prilosec. 5. Tamiflu. 6. Potassium. 7. Coumadin. ALLERGIES: ERYTHROMYCIN. SOCIAL HISTORY: She is a nonsmoker. Rare drinker. She lives with her in a 2-story house, but there is a room on the first floor for her to stay in the bedroom. REVIEW OF SYSTEMS: The patient reports no current shortness of breath or chest pain. PHYSICAL EXAMINATION VITAL SIGNS: The patient's temperature is 98.5, blood pressure is 119/64, pulse is 126, respirations are 18. HEENT: Her extraocular movements were intact. Tongue is midline. NECK: Supple. LUNGS: Sound mostly clear to auscultation. HEART: Sounds are regular. ABDOMEN: She has a midline suture with superficial separation. She has a transverse colon mucous fistula in the superior portion of her incision in the epigastrium. She has an ileostomy as well as a colostomy. Abdomen appears to be soft. EXTREMITIES: She has a [place] drain coming through her back of her right thigh with an open wound. This is where the fistula is draining. Trace edema at both legs. NEUROLOGIC: She is awake, alert, and oriented. Muscle strength appears to be about 4/5 in her arms. Her lower extremities are 2/5 or less. Plantar flexion and dorsiflexion appear to be 4/5. FUNCTIONAL EXAM: She transfers with max assist of 2 people. ASSESSMENT: Weakness following septic shock following a perforated viscous after surgery. 2. DVT 3. Wound separation 4. Multiple fistulas PLAN: Integrate her into a comprehensive and therapeutic rehab program with the following goals: 1. Physical Therapy will work the patient. They are going to work on functional transfer training, ambulation training with a walker. 2. Occupational Therapy will see the patient, work on her activities of daily living including toileting and toilet transfers. 3. Continue Coumadin to treat her DVT. 4. Lovenox until her INR is therapeutic. 5. Given her profound weakness in her legs, she may need EMG studies, although we will hold off on that for now. It is possible she has critical care neuropathy. 6. Nutritional support including Ensure. 7. Check electrolytes in the morning. We will continue potassium supplementation for now. 8. well services operator will be closely involved to make sure that any services and equipment that the patient requires are in place prior to discharge. 9. Routine ostomy care. 10. Continue GI prophylaxis with Prilosec. 11. Family training as appropriate. 12. Advanced directives: The patient is a full code. 13. Home with appropriate services. ESTIMATED LENGTH OF STAY: Three weeks. [id number]/CPS #: [id number] MTDD
[2016-04-14] MEDS: Loperamide CAP* 2 MG PO SCH ×3 (08:06→17:12)
[2016-04-14] MEDS: Omeprazole CAP* 20 MG PO SCH (08:07)
[2016-04-14] MEDS: Amoxicillin/Clavulanate TAB* 875 MG PO SCH ×2 (08:50→20:50)
[2016-04-14] MEDS: Potassium Chlor TAB* 20 MEQ TAB.ER PO SCH (08:50)
[2016-04-14] MEDS: Enoxaparin(*) 60 MG/0.6 ML SYR SUBCUT SCH ×2 (08:51→20:50)
[2016-04-14] MEDS: Oseltamivir CAP* 75 MG PO SCH (08:51)
[2016-04-14] MEDS ORDERED: Warfarin TAB(*) 2.5 MG PO SCH (17:00)
[2016-04-15] MEDS: Loperamide CAP* 2 MG PO SCH ×3 (08:17→17:38)
[2016-04-15] MEDS: Omeprazole CAP* 20 MG PO SCH (08:17)
[2016-04-15] MEDS: Potassium Chlor TAB* 20 MEQ TAB.ER PO SCH (08:40)
[2016-04-15] MEDS: Oseltamivir CAP* 75 MG PO SCH (08:40)
[2016-04-15] MEDS: Amoxicillin/Clavulanate TAB* 875 MG PO SCH ×2 (08:40→20:21)
[2016-04-15] MEDS: Enoxaparin(*) 60 MG/0.6 ML SYR SUBCUT SCH ×2 (08:47→20:21)
[2016-04-15] MEDS: Warfarin TAB(*) 4 MG PO SCH (17:37)
[2016-04-16 08:21] LABS: Hematocrit 27 % (35-47); Hemoglobin 8.4 g/dl (12.0-16.0); Mean Corpuscular HGB Conc 31 g/dl (31-36); Mean Corpuscular Hemoglobin 28 pg (27-31); Mean Corpuscular Volume 88 fL (80-97); Mean Platelet Volume 7 um3 (7.4-10.4); Red Blood Count 3.04 10^6/ul (4.0-5.4); Red Cell Distribution Width 23 % (10.5-15); White Blood Count 7.2 10^3/ul (3.5-10.8)
[2016-04-16 08:25] LABS: Add Diff/Slide Review? Slide Review Added; Comments Flag Yes
[2016-04-16] MEDS: Amoxicillin/Clavulanate TAB* 875 MG PO SCH ×2 (08:29→20:45)
[2016-04-16] MEDS: Omeprazole CAP* 20 MG PO SCH (08:30)
[2016-04-16] MEDS: Loperamide CAP* 2 MG PO SCH ×3 (08:30→17:20)
[2016-04-16] MEDS: Potassium Chlor TAB* 20 MEQ TAB.ER PO SCH (08:30)
[2016-04-16] MEDS: Oseltamivir CAP* 75 MG PO SCH (08:31)
[2016-04-16] MEDS: Enoxaparin(*) 60 MG/0.6 ML SYR SUBCUT SCH ×2 (08:32→20:46)
[2016-04-16 08:48] LABS: Hypochromasia 1+; Macrocytosis 1+; Polychromasia 1+
[2016-04-16 09:19] LABS: BUN/Creatinine Ratio 28.6 (8-20); EGFR African American 446.7 (>60); EGFR Non-African American 347.3 (>60); Total Bilirubin 0.5 mg/dL (0.2-1.0); Total Protein 4.3 g/dL (6.4-8.9)
[2016-04-16 09:23] LABS: Albumin 1.4 g/dL (3.2-5.2); Globulin 2.9 g/dL (2-4)
--- NOTE | 2016-04-16 13:02 | PMRUTEAM ---
PMRU: Goals Current Status: Nursing: Current Status Skin Deviations [Right Lower Other Buttocks] Skin Deviations [Abdomen] Other Skin Deviations [Left Arm] Bruise Skin Deviations [Groin] Rash,Other Skin Deviations [Bilateral Other Breast] Skin Deviations [Buttocks] Other Skin Deviations [Left Back] Bruise Skin Deviation Description [ bhupinder Right Lower Buttocks] Skin Deviation Description [ Colostomy and ileostomy, fistula and fascial Abdomen] dehiscence Skin Deviation Description [ Bruise due to old IV site Left Arm] Skin Deviation Description [ Redness and rash to wen area. Area washed, Groin] barriere cream applied. Skin Deviation Description [ Redness under bilat breast Bilateral Breast] Skin Deviation Description [ redness - cleaned with pericare then NS Buttocks] Skin Deviation Description [ tecaderm in place. old blister Left Back] Drain Type [Right Lower Bhupinder Buttocks] Physical Therapy: Current Status Bed Mobility Assistance Independent Transfer Moblility Assistance Total Assist,2 or More Person Assist Transfer/Bed Mobility Lexus Lift Recommended Devices Ambulation Assistance Unable Ambulation Assistive Devices Rolling Walker Stairs Assistance Not Tested Curb Not Tested Occupational Therapy: Current Status Upper Body Dressing Min Assist Lower Body Dressing Total Assist,2 Person Assist Bathing Max Asst Toileting Total Assist Eating Supervision Social Work: Current Status Discharge Plan return home with home care svs and family support Potential for Family Training pt's is involved and supportive Anticipated Discharge Home Destination Discharge With home care svs and family support Goals: Physical Therapy: Initial Goals Bed Mobility Assistance Independent Transfer Mobility Assistance Independent Transfer/Bed Mobility Rolling Walker Recommended Devices Ambulation Independent Ambulation Recommended Devices Rolling Walker Ambulation Distance 150 Wheelchair Propulsion Ability Independent Wheelchair Distance (ft) 150 Stairs Assistance Independent Stair Recommended Devices Two Rails Number of Stairs 5 Physical Therapy: Updated Goals Transfer/Bed Mobility Lexus Lift Recommended Devices Occupational Therapy: Initial Goals Goals to be Completed in (Days 3-4 weeks ) Upper Body Bathing Routine Independent Lower Body Bathing Routine Modified Independent with Upper Body Dressing Routine Independent Lower Body Dressing Routine Modified Independent with Toilet Hygeine and Clothing Modified Independent with Management Routine Toilet Transfer Routine Modified Independent with Step-In Shower Transfer Modified Independent with Routine Functional Transfers for ADL Modified Independent with Grooming Routine Independent Feeding Routine Independent Nutrition: Goals Intervention Goals 1. Oral intake at meals + supplement will support stable wt without unintended wt loss 2. Bowel pattern will improve - less-watery consistency via ostomy Social Work: Goals Discharge Plan return home with home care svs and family support Potential for Family Training pt's is involved and supportive Anticipated Discharge Home Destination Discharge With home care svs and family support Care Plan: Care Plan ADL's - Improve/Maintain Start: 04/14/16 14:33 Freq: DAILY Status: Active Target: Activity Type Activity Date Activity User E-Sign Co-Sign Detail Recorded Client Recorded Date Recorded By Document 04/14/16 14:33 [id number] 04/14/16 14:33 [id number] 04/14/16 14:33 PMRU Outcome: ADL's/ADL Transfers Orders/Interventions Occupational Therapy Evaluation & Treatment Patient to receive OT 5x/wk for 60-120 Therex min/day Self Care Management Group Therapy UE/LE ADL's with Assist Yes ADL Transfers with Assist Yes Toileting: Transfers,Clothing Management Yes ,Hygeine w/Assist Progression Toward Outcome/Goals Progressing Communication-Improve/Maintain Start: 04/14/16 04:25 Freq: DAILY Status: Active Target: Activity Type Activity Date Activity User E-Sign Co-Sign Detail Recorded Client Recorded Date Recorded By Document 04/15/16 23:47 [id number] 04/15/16 23:47 [id number] 04/15/16 23:47 PMRU Outcome: Communication/Cognitive Status Outcome/Goals Makes Needs Known Effectively Progression Toward Outcomes/Goals Progressing Coping/Psych-Improve/Maintain Start: 04/14/16 04:25 Freq: DAILY Status: Complete Target: Activity Type Activity Date Activity User E-Sign Co-Sign Detail Recorded Client Recorded Date Recorded By Document 04/16/16 10:00 [id number] 04/16/16 12:43 [id number] 04/16/16 10:00 PMRU Outcome: Coping/Psychosocial Coping Outcome/Goals Verbalization of Acceptance of Rehab Admit Verbalization of Sense of Control Over Health Status Utilization of Appropriate Problem Solving Techniques Willingness to Participate in Treatment Plan and Basic Needs Utilization of Available Support Systems Absence of Destructive Behavior to Self/Others Psychosocial Outcome/Goals Maintain/ Improve Emotional Health Demonstrates Knowledge of Healthy Coping Mechanisms Available Cooperate/ Participate in Plan Progression Toward Outcome/Goals - Progressing Coping Progression Toward Outcome/Goals - Progressing Psychosocial DVT Prophylaxis- Improve/Maintain Start: 04/14/16 04:25 Freq: DAILY Status: Active Target: Activity Type Activity Date Activity User E-Sign Co-Sign Detail Recorded Client Recorded Date Recorded By Document 04/16/16 10:00 [id number] 04/16/16 12:43 [id number] 04/16/16 10:00 PMRU Outcome: DVT Prophylaxis Outcome/Goals Remains Free of DVT Complies with DVT Prophylaxis /Treatment Demonstrates Knowledge of DVT Prevention/ Treatment TEDS Stockings on Every AM, Off at HS Other Outcome/Goals Edwin wraps bilaterally Progression Toward Outcome/Goals Progressing Discharge Planning - Improve/Maintain Start: 04/14/16 04:25 Freq: DAILY Status: Active Target: Activity Type Activity Date Activity User E-Sign Co-Sign Detail Recorded Client Recorded Date Recorded By Document 04/15/16 23:47 [id number] 04/15/16 23:47 [id number] 04/15/16 23:47 PMRU Outcome: Discharge Planning Identify Patient Needs yes Update Patient Family No Outcome/Goals Demonstrates Understanding of Discharge Plan Progression Toward Outcome/Goals Progressing Education-Improve/Maintain Start: 04/14/16 04:25 Freq: DAILY Status: Active Target: Activity Type Activity Date Activity User E-Sign Co-Sign Detail Recorded Client Recorded Date Recorded By Document 04/16/16 10:00 [id number] 04/16/16 12:43 [id number] 04/16/16 10:00 PMRU Outcome: Education Outcome/Goals Demonstrate/ Verbalize Understanding of Written Discharge Instructions Demonstrates Skills Encourage Questions Progression Toward Outcome/Goals Progressing /GI-Improve/Maintain Start: 04/14/16 04:25 Freq: DAILY Status: Active Target: Activity Type Activity Date Activity User E-Sign Co-Sign Detail Recorded Client Recorded Date Recorded By Document 04/16/16 10:00 [id number] 04/16/16 12:43 [id number] 04/16/16 10:00 PMRU Outcome: Genitourinary/ Gastrointestinal Genitourinary- Outcome/Goals Maintain/ Achieve Urinary Continence Maintain/ Achieve Adequate Urinary Output Remain Free of Hospital- Acquired UTI Gastrointestinal-Outcome/Goals Maintain/ Achieve Bowel Regularity in Accordance with Pt's Baseline Remain Free of Emesis Prevent Constipation Laxatives as Ordered Progression Toward Outcome/Goals - Progressing Progression Toward Outcome/Goals - GI Progressing Medication Administration Start: 04/14/16 04:25 Freq: DAILY Status: Active Target: Activity Type Activity Date Activity User E-Sign Co-Sign Detail Recorded Client Recorded Date Recorded By Document 04/16/16 10:00 [id number] 04/16/16 12:43 [id number] 04/16/16 10:00 PMRU Outcome: Medication Administration Assess Patient Knowledge/Teach Med Yes Education for all Meds Outcome/Goals Patient Independent with Medication Administration at Home Demonstrates Understanding Progression Towards Outcome/Goals Progressing Is Patient Going Home on Lovenox? No If Patient is Going Home on Lovenox, Who Unknown if pt Will Administer going home lovenox Mobility- Improve/Maintain Start: 04/14/16 04:25 Freq: DAILY Status: Active Target: Activity Type Activity Date Activity User E-Sign Co-Sign Detail Recorded Client Recorded Date Recorded By Document 04/16/16 12:26 [id number] 04/16/16 12:26 [id number] 04/16/16 12:26 PMRU Outcome: Mobility Physical Therapy Evaluation and Yes Treatment Activity OOB with Assistance Yes Assistance Yes Patient to be seen 5x/wk for 60-120 min/ Therex day for: Mobility Training Gait Training W/C Mobility Balance Outcome/Goals Maintain/ Achieve Baseline Mobility Status Improve Mobility Status Demonstrates Proper Use of Assistive Devices Free from Complications of Immobility Progression Toward Outcome/Goals Progressing Bed Mobility Yes: independent Transfers Yes: independent with rolling walker Gait x ft Yes: independent with rolling walker Up/Down Stairs Yes: independent up/ down 5 with bilateral rails Pain/Comfort- Improve/Maintain Start: 04/14/16 04:25 Freq: DAILY Status: Complete Target: Activity Type Activity Date Activity User E-Sign Co-Sign Detail Recorded Client Recorded Date Recorded By Document 04/16/16 10:00 [id number] 04/16/16 12:43 [id number] 04/16/16 10:00 PMRU Outcome: Pain/Comfort Outcome/Goals Demonstrates Knowledge and Use of Available Comfort Measures Achieves Acceptable Comfort/Pain Level as Determined by Patient/Condit Maintain Comfort Level Allowing Patient to Fully Participate in Rehab Progression Toward Outcome/Goals Progressing Outcome/Goals Met Demonstrates Knowledge and Use of Available Comfort Measures Achieves Acceptable Comfort/Pain Level as Determined by Patient/Condit Maintain Comfort Level Allowing Patient to Fully Participate in Rehab Safety- Improve/Maintain Start: 04/14/16 04:25 Freq: DAILY Status: Complete Target: Activity Type Activity Date Activity User E-Sign Co-Sign Detail Recorded Client Recorded Date Recorded By Document 04/16/16 10:00 [id number] 04/16/16 12:43 [id number] 04/16/16 10:00 PMRU Outcome: Safety Outcome/Goals Remain Free of Injury or Harm Cooperates with Safety Measures for Least Restrictive Environment Prevent Falls/ Injury Progression Toward Outcome/Goals Progressing Outcome/Goals Met Remain Free of Injury or Harm Cooperates with Safety Measures for Least Restrictive Environment Skin- Improve/Maintain Start: 04/14/16 04:25 Freq: DAILY Status: Active Target: Activity Type Activity Date Activity User E-Sign Co-Sign Detail Recorded Client Recorded Date Recorded By Document 04/16/16 10:00 [id number] 04/16/16 12:43 [id number] 04/16/16 10:00 PMRU Outcome: Skin Skin Risk Level High Skin Orders Dressing Change Air Mattress Spenco Boots Turn/Position q2hr While in Bed Outcome/Goals Maintain/ Improve Skin Intergrity Maintain/ Improve Wound Status Surgical Incisions Healing Progression Toward Outcome/Goals Progressing Medicine Note: Length of Stay: 4 weeks Anticipated Discharge Destination: Home Tentative Discharge Date: May 18, 2016 Discharged to: Home
[2016-04-16] MEDS: Warfarin TAB(*) 4 MG PO SCH (17:20)
[2016-04-16] MEDS: Acetaminophen TAB* 325 MG PO PRN (21:11)
[2016-04-17] MEDS: Oseltamivir CAP* 75 MG PO SCH (08:32)
[2016-04-17] MEDS: Loperamide CAP* 2 MG PO SCH ×3 (08:32→16:19)
[2016-04-17] MEDS: Amoxicillin/Clavulanate TAB* 875 MG PO SCH ×2 (08:32→20:14)
[2016-04-17] MEDS: Omeprazole CAP* 20 MG PO SCH (08:32)
[2016-04-17] MEDS: Potassium Chlor TAB* 20 MEQ TAB.ER PO SCH (08:32)
[2016-04-17] MEDS: Enoxaparin(*) 60 MG/0.6 ML SYR SUBCUT SCH ×2 (08:34→20:14)
--- NOTE | 2016-04-17 12:53 | PMRUTEAM ---
PMRU: Goals Current Status: Nursing: Current Status Skin Deviations [Right Lower Other Buttocks] Skin Deviations [Abdomen] Incision Skin Deviations [Left Arm] Bruise Skin Deviations [Groin] Rash,Other Skin Deviations [Bilateral Other Breast] Skin Deviations [Buttocks] Other Skin Deviations [Left Back] Other Skin Deviation Description [ bhupinder drain. draining Right Lower Buttocks] Skin Deviation Description [ midline incision dressing changed Abdomen] Skin Deviation Description [ Bruise due to old IV site Left Arm] Skin Deviation Description [ Redness and rash to wen area. Area washed, Groin] barriere cream applied. Skin Deviation Description [ Redness under bilat breast Bilateral Breast] Skin Deviation Description [ redness-skin prep applied Buttocks] Skin Deviation Description [ abrasion healing. tegaderm intact Left Back] Drain Type [Right Lower Bhupinder Buttocks] Physical Therapy: Current Status Bed Mobility Assistance Mod Assist,Max Assist Transfer Moblility Assistance Total Assist,2 or More Person Assist Transfer/Bed Mobility Lexus Lift Recommended Devices Ambulation Assistance Unable Ambulation Assistive Devices Rolling Walker Stairs Assistance Not Tested Curb Not Tested Occupational Therapy: Current Status Upper Body Dressing Min Assist Lower Body Dressing Total Assist,2 Person Assist Bathing Mod Assist,Max Asst Toileting Total Assist Eating Supervision Rec Therapy: Current Status Summary of Assessment and RT assessment complete and pt. is aware of RT Clinical Impression services. Pt. has leisure material in her room and is open to continued leisure visits. Treatment Goals Pt. will engage in leisure activities while on the unit. Treatment Plan Provide RT services and encourage involvement. Social Work: Current Status Discharge Plan return home with home care svs and family support Potential for Family Training pt's family is involved and supportive Anticipated Discharge Home Destination Discharge With return home with home care svs and family support Nutrition: Current Status Monitoring Received call from Myriam RN re: Special K oral supplement brought in by family, because it contains 5 g fiber per serving. Left message with woods warden that Special K drink is OK for pt to drink; goal re: fiber is to avoid chunks that could clog ostomy tube such as corn, broccoli, etc . Goals: Physical Therapy: Initial Goals Bed Mobility Assistance Independent Transfer Mobility Assistance Independent Transfer/Bed Mobility Rolling Walker Recommended Devices Ambulation Independent Ambulation Recommended Devices Rolling Walker Ambulation Distance 150 Wheelchair Propulsion Ability Independent Wheelchair Distance (ft) 150 Stairs Assistance Independent Stair Recommended Devices Two Rails Number of Stairs 5 Physical Therapy: Updated Goals Bed Mobility Assistance Independent Transfer Mobility Assistance Independent Transfer/Bed Mobility Rolling Walker,Lexus Lift Recommended Devices Ambulation Assistance Independent Ambulation Assistive Devices Rolling Walker Ambulation Distance (ft) 150' Wheelchair Propulsion Ability Independent Wheelchair Distance (ft) 150' Stairs Assistance Independent Stairs Recommended Devices One Rail,Two Rails Number of Stairs 5 Occupational Therapy: Initial Goals Goals to be Completed in (Days 3-4 weeks ) Upper Body Bathing Routine Independent Lower Body Bathing Routine Modified Independent with Upper Body Dressing Routine Independent Lower Body Dressing Routine Modified Independent with Toilet Hygeine and Clothing Modified Independent with Management Routine Toilet Transfer Routine Modified Independent with Step-In Shower Transfer Modified Independent with Routine Functional Transfers for ADL Modified Independent with Grooming Routine Independent Feeding Routine Independent Nutrition: Goals Intervention Goals 1. Oral intake at meals + supplement will support stable wt without unintended wt loss 2. Bowel pattern will improve - less-watery consistency via ostomy Social Work: Goals Discharge Plan return home with home care svs and family support Potential for Family Training pt's family is involved and supportive Anticipated Discharge Home Destination Discharge With return home with home care svs and family support Care Plan: Care Plan ADL's - Improve/Maintain Start: 04/14/16 14:33 Freq: DAILY Status: Active Target: Activity Type Activity Date Activity User E-Sign Co-Sign Detail Recorded Client Recorded Date Recorded By Document 04/14/16 14:33 [id number] 04/14/16 14:33 [id number] 04/14/16 14:33 PMRU Outcome: ADL's/ADL Transfers Orders/Interventions Occupational Therapy Evaluation & Treatment Patient to receive OT 5x/wk for 60-120 Therex min/day Self Care Management Group Therapy UE/LE ADL's with Assist Yes ADL Transfers with Assist Yes Toileting: Transfers,Clothing Management Yes ,Hygeine w/Assist Progression Toward Outcome/Goals Progressing Communication-Improve/Maintain Start: 04/14/16 04:25 Freq: DAILY Status: Active Target: Activity Type Activity Date Activity User E-Sign Co-Sign Detail Recorded Client Recorded Date Recorded By Document 04/17/16 01:05 [id number] 04/17/16 01:06 [id number] 04/17/16 01:05 PMRU Outcome: Communication/Cognitive Status Outcome/Goals Makes Needs Known Effectively Progression Toward Outcomes/Goals Progressing Coping/Psych-Improve/Maintain Start: 04/14/16 04:25 Freq: DAILY Status: Complete Target: Activity Type Activity Date Activity User E-Sign Co-Sign Detail Recorded Client Recorded Date Recorded By Document 04/16/16 10:00 [id number] 04/16/16 12:43 [id number] 04/16/16 10:00 PMRU Outcome: Coping/Psychosocial Coping Outcome/Goals Verbalization of Acceptance of Rehab Admit Verbalization of Sense of Control Over Health Status Utilization of Appropriate Problem Solving Techniques Willingness to Participate in Treatment Plan and Basic Needs Utilization of Available Support Systems Absence of Destructive Behavior to Self/Others Psychosocial Outcome/Goals Maintain/ Improve Emotional Health Demonstrates Knowledge of Healthy Coping Mechanisms Available Cooperate/ Participate in Plan Progression Toward Outcome/Goals - Progressing Coping Progression Toward Outcome/Goals - Progressing Psychosocial DVT Prophylaxis- Improve/Maintain Start: 04/14/16 04:25 Freq: DAILY Status: Active Target: Activity Type Activity Date Activity User E-Sign Co-Sign Detail Recorded Client Recorded Date Recorded By Document 04/17/16 01:05 [id number] 04/17/16 01:06 [id number] 04/17/16 01:05 PMRU Outcome: DVT Prophylaxis Outcome/Goals Remains Free of DVT Complies with DVT Prophylaxis /Treatment Demonstrates Knowledge of DVT Prevention/ Treatment TEDS Stockings on Every AM, Off at HS Other Outcome/Goals Edwin wraps bilaterally Progression Toward Outcome/Goals Progressing Discharge Planning - Improve/Maintain Start: 04/14/16 04:25 Freq: DAILY Status: Active Target: Activity Type Activity Date Activity User E-Sign Co-Sign Detail Recorded Client Recorded Date Recorded By Document 04/17/16 01:05 [id number] 04/17/16 01:06 [id number] 04/17/16 01:05 PMRU Outcome: Discharge Planning Identify Patient Needs yes Update Patient Family No Outcome/Goals Demonstrates Understanding of Discharge Plan Progression Toward Outcome/Goals Progressing Education-Improve/Maintain Start: 04/14/16 04:25 Freq: DAILY Status: Active Target: Activity Type Activity Date Activity User E-Sign Co-Sign Detail Recorded Client Recorded Date Recorded By Document 04/17/16 01:05 [id number] 04/17/16 01:06 [id number] 04/17/16 01:05 PMRU Outcome: Education Outcome/Goals Demonstrate/ Verbalize Understanding of Written Discharge Instructions Demonstrates Skills Encourage Questions Progression Toward Outcome/Goals Progressing /GI-Improve/Maintain Start: 04/14/16 04:25 Freq: DAILY Status: Active Target: Activity Type Activity Date Activity User E-Sign Co-Sign Detail Recorded Client Recorded Date Recorded By Document 04/17/16 01:05 [id number] 04/17/16 01:06 [id number] 04/17/16 01:05 PMRU Outcome: Genitourinary/ Gastrointestinal Genitourinary- Outcome/Goals Maintain/ Achieve Urinary Continence Maintain/ Achieve Adequate Urinary Output Remain Free of Hospital- Acquired UTI Gastrointestinal-Outcome/Goals Maintain/ Achieve Bowel Regularity in Accordance with Pt's Baseline Remain Free of Emesis Prevent Constipation Laxatives as Ordered Progression Toward Outcome/Goals - Progressing Progression Toward Outcome/Goals - GI Progressing Medication Administration Start: 04/14/16 04:25 Freq: DAILY Status: Active Target: Activity Type Activity Date Activity User E-Sign Co-Sign Detail Recorded Client Recorded Date Recorded By Document 04/17/16 01:05 [id number] 04/17/16 01:06 [id number] 04/17/16 01:05 PMRU Outcome: Medication Administration Assess Patient Knowledge/Teach Med Yes Education for all Meds Outcome/Goals Patient Independent with Medication Administration at Home Demonstrates Understanding Progression Towards Outcome/Goals Progressing Is Patient Going Home on Lovenox? No If Patient is Going Home on Lovenox, Who Unknown if pt Will Administer going home lovenox Mobility- Improve/Maintain Start: 04/14/16 04:25 Freq: DAILY Status: Active Target: Activity Type Activity Date Activity User E-Sign Co-Sign Detail Recorded Client Recorded Date Recorded By Document 04/16/16 12:26 [id number] 04/16/16 12:26 [id number] 04/16/16 12:26 PMRU Outcome: Mobility Physical Therapy Evaluation and Yes Treatment Activity OOB with Assistance Yes Assistance Yes Patient to be seen 5x/wk for 60-120 min/ Therex day for: Mobility Training Gait Training W/C Mobility Balance Outcome/Goals Maintain/ Achieve Baseline Mobility Status Improve Mobility Status Demonstrates Proper Use of Assistive Devices Free from Complications of Immobility Progression Toward Outcome/Goals Progressing Bed Mobility Yes: independent Transfers Yes: independent with rolling walker Gait x ft Yes: independent with rolling walker Up/Down Stairs Yes: independent up/ down 5 with bilateral rails Pain/Comfort- Improve/Maintain Start: 04/14/16 04:25 Freq: DAILY Status: Complete Target: Activity Type Activity Date Activity User E-Sign Co-Sign Detail Recorded Client Recorded Date Recorded By Document 04/16/16 10:00 [id number] 04/16/16 12:43 [id number] 04/16/16 10:00 PMRU Outcome: Pain/Comfort Outcome/Goals Demonstrates Knowledge and Use of Available Comfort Measures Achieves Acceptable Comfort/Pain Level as Determined by Patient/Condit Maintain Comfort Level Allowing Patient to Fully Participate in Rehab Progression Toward Outcome/Goals Progressing Outcome/Goals Met Demonstrates Knowledge and Use of Available Comfort Measures Achieves Acceptable Comfort/Pain Level as Determined by Patient/Condit Maintain Comfort Level Allowing Patient to Fully Participate in Rehab Safety- Improve/Maintain Start: 04/14/16 04:25 Freq: DAILY Status: Complete Target: Activity Type Activity Date Activity User E-Sign Co-Sign Detail Recorded Client Recorded Date Recorded By Document 04/16/16 10:00 [id number] 04/16/16 12:43 [id number] 04/16/16 10:00 PMRU Outcome: Safety Outcome/Goals Remain Free of Injury or Harm Cooperates with Safety Measures for Least Restrictive Environment Prevent Falls/ Injury Progression Toward Outcome/Goals Progressing Outcome/Goals Met Remain Free of Injury or Harm Cooperates with Safety Measures for Least Restrictive Environment Skin- Improve/Maintain Start: 04/14/16 04:25 Freq: DAILY Status: Active Target: Activity Type Activity Date Activity User E-Sign Co-Sign Detail Recorded Client Recorded Date Recorded By Document 04/17/16 01:05 [id number] 04/17/16 01:06 [id number] 04/17/16 01:05 PMRU Outcome: Skin Skin Risk Level High Skin Orders Dressing Change Air Mattress Spenco Boots Turn/Position q2hr While in Bed Outcome/Goals Maintain/ Improve Skin Intergrity Maintain/ Improve Wound Status Surgical Incisions Healing Progression Toward Outcome/Goals Progressing Medicine Note: Length of Stay: 3 1/2 weeks Anticipated Discharge Destination: Home Tentative Discharge Date: 05/18/16 Discharged to: Home
[2016-04-17] MEDS ORDERED: Loperamide CAP* 2 MG PO PRN (16:37)
[2016-04-17] MEDS: Simethicone CHEW TAB* 80 MG PO PRN (16:51)
[2016-04-17] MEDS: Warfarin TAB(*) 4 MG PO SCH (17:24)
[2016-04-17] MEDS: Nystatin TOP POWDER* 15 GM BTL TOPICAL SCH (20:17)
[2016-04-18] MEDS: Amoxicillin/Clavulanate TAB* 875 MG PO SCH ×2 (09:05→21:00)
[2016-04-18] MEDS: Potassium Chlor TAB* 20 MEQ TAB.ER PO SCH (09:05)
[2016-04-18] MEDS: Enoxaparin(*) 60 MG/0.6 ML SYR SUBCUT SCH ×2 (09:05→21:01)
[2016-04-18] MEDS: Oseltamivir CAP* 75 MG PO SCH (09:05)
[2016-04-18] MEDS: Omeprazole CAP* 20 MG PO SCH (09:05)
[2016-04-18] MEDS: Nystatin TOP POWDER* 15 GM BTL TOPICAL SCH ×2 (10:00→22:23)
[2016-04-18] MEDS: Warfarin TAB(*) 4 MG PO SCH (17:18)
--- NOTE | 2016-04-18 19:56 | PN ---
Progress Note - Progress Note Note: Surgery Progress: S: Asked to see this 55 yo female known to our service from recent surgery ( ileocolonic rsxn for fistulizing Crohn's dz), complicated by intra-abdominal sepsis 2/2 anastomotic leak, with resp failure resulting in transfer to [place] where she underwent laparotomy, takedown of ileocolic anastomosis, creation of end-ileostomy and transverse colon mucous fistula (placed at superior aspect of midline incision). There also appeared to be a hole in the rectosigmoid colon. This was diverted via loop sigmoid colostomy. In addition, a Bhupinder drain was placed which appears to connect the Right posterior thigh fistula with the perianal fistula. Per the patient, this has drained little or nothing in recent days. She has some separation of the midline wound and drainage has been copious from the inferior aspect, requiring dsg changes 3-4 x /d. She is also being gently anticoagulated for a RUE DVT (2/2 PICC which was removed some time ago). She has no swelling at present of the RUE. She states she's eating fairly well at present. She was returned to [facility] [place] for Rehab on 04/13/16. O: Vital Signs - 8 hr 04/18/16 04/18/16 15:22 15:46 Temperature 98.1 F Pulse Rate 94 Respiratory 22 Rate Blood Pressure 114/61 (mmHg) O2 Sat by Pulse 100 100 Oximetry Intake and Output Last 24 Hours 04/16/16 04/17/16 04/18/16 04/19/16 06:59 06:59 06:59 06:59 Intake Total 1120 350 660 240 Output Total 2100 976 675 815 Balance -980 -626 -15 -575 Intake: Oral 1120 350 660 240 Output: Urine 250 250 Liquid Stool 600 Colostomy 150 Ileostomy 1100 975 675 565 # Incontinent Voids 0 1 Other: Estimated Void Medium Large Large # Bowel Movements 1 1 Estimated Stool Amount Medium Small Medium # Voids 1 1 1 1 Abd: Right sided ileostomy, functional and appears to be somewhat high-output ( has been getting Loperamide). Left sided colostomy w/ bag; little to no drainage. Midline incision w/ MF at superior aspect; somewhat edematous. 3-4 open areas along incision, most are ~ 2-3 mm in diameter. The second from the bottom has moderate thin cloudy drainage which is saturating the dressings inferiorly and also causing some rash to the skin, jakub in the Right groin. There is a similar rash in the proximal posterior Right thigh extending to the perianal area. She is apparently getting Nystatin powder applied to these areas. Per Dr. Hernandez's transfer note, it is believed that she also has some degree of fascial separation. This is difficult for me to confirm at the present. Labs: Laboratory Tests 04/16/16 04/16/16 04/18/16 07:48 07:48 07:22 WBC 7.2 Hgb 8.4 L INR (Anticoag Therapy) 1.82 H Albumin 1.4 L A: s/p multiple surgeries as noted above, with partially open midline abd wound w/ moderate drainage which has been difficult to contain. She also has severe protein malnutrition. P: I spoke with Dr. Moncada, and will d/w Dr. Rowley tomorrow. At this point, emphasis should be on maximal nutrition support. Local wound care (dry dressings , changed prn; avoidance of maceration of intact skin from excess drainage).
[2016-04-19] MEDS: Omeprazole CAP* 20 MG PO SCH (08:25)
[2016-04-19] MEDS: Amoxicillin/Clavulanate TAB* 875 MG PO SCH ×2 (08:25→20:07)
[2016-04-19] MEDS: Loperamide CAP* 2 MG PO SCH ×4 (08:25→17:38)
[2016-04-19] MEDS: Potassium Chlor TAB* 20 MEQ TAB.ER PO SCH (08:25)
[2016-04-19] MEDS: Nystatin TOP POWDER* 15 GM BTL TOPICAL SCH ×2 (09:52→20:09)
[2016-04-19] MEDS ORDERED: Warfarin TAB(*) 5 MG PO SCH (17:00)
[2016-04-20 08:09] LABS: BUN/Creatinine Ratio 20.8 (8-20); EGFR African American 382.9 (>60); EGFR Non-African American 297.7 (>60); Potassium 4.1 mmol/L (3.5-5.0); Total Bilirubin 0.4 mg/dL (0.2-1.0); Total Protein 4.8 g/dL (6.4-8.9)
[2016-04-20 08:11] LABS: Albumin 1.4 g/dL (3.2-5.2); Globulin 3.4 g/dL (2-4)
[2016-04-20] MEDS: Loperamide CAP* 2 MG PO SCH ×3 (08:14→16:44)
[2016-04-20] MEDS: Potassium Chlor TAB* 20 MEQ TAB.ER PO SCH (08:14)
[2016-04-20] MEDS: Amoxicillin/Clavulanate TAB* 875 MG PO SCH (08:14)
[2016-04-20] MEDS: Omeprazole CAP* 20 MG PO SCH (08:14)
[2016-04-20] MEDS: Nystatin TOP POWDER* 15 GM BTL TOPICAL SCH ×2 (14:39→21:59)
[2016-04-21] MEDS: Loperamide CAP* 2 MG PO SCH ×3 (09:36→16:56)
[2016-04-21] MEDS: Omeprazole CAP* 20 MG PO SCH (09:37)
[2016-04-21] MEDS: Potassium Chlor TAB* 20 MEQ TAB.ER PO SCH (09:37)
[2016-04-21] MEDS: Nystatin TOP POWDER* 15 GM BTL TOPICAL SCH ×2 (09:37→19:46)
--- NOTE | 2016-04-21 13:48 | PN ---
Progress Note - Progress Note SOAP: Subjective: Pt seen and examined. Chart reviewed. Transferred after ex lap, diverting ileostomy, mucous fistula, and sigmoid colostomy. Ileostomy is functioning well. Her appetite is improving. Kirstie drainage at right thigh/buttock is having minimal drainage. Most abdominal drainage is at mucous fistula site according to pt and nursing staff. Objective: af vss a and o x3, nad abdo: soft/ ND/NT ileostomy intact, mucous fistula is pink and edematous with wound dehiscence inferiorly and tracking on the L at 5 o'clock (over 10cm) No hernia, positive BS R thigh: kirstie in place; no erythema, scant drainage. abx completed Assessment: s/p ex lap, multiple ostomies Plan: Encourage PO intake Kirstie drainage for at least 1 more week aquacell to wound inferior to midline mucous fistula. will follow intermittently.
[2016-04-21] MEDS: Warfarin TAB(*) 6 MG PO SCH (16:57)
[2016-04-22] MEDS: Omeprazole CAP* 20 MG PO SCH (05:55)
[2016-04-22] MEDS: Loperamide CAP* 2 MG PO SCH ×3 (09:13→17:39)
[2016-04-22] MEDS: Nystatin TOP POWDER* 15 GM BTL TOPICAL SCH ×2 (09:15→21:27)
[2016-04-22] MEDS: Potassium Chlor TAB* 20 MEQ TAB.ER PO SCH (09:15)
[2016-04-22 16:48] LABS: Albumin 1.6 g/dL (3.2-5.2); Calcium 7.7 mg/dL (8.6-10.3); EGFR African American 472.5 (>60); EGFR Non-African American 367.4 (>60); Globulin 4.1 g/dL (2-4); Potassium 4.3 mmol/L (3.5-5.0); Total Bilirubin 0.5 mg/dL (0.2-1.0); Total Protein 5.7 g/dL (6.4-8.9)
[2016-04-22] MEDS: Acetaminophen TAB* 325 MG PO PRN (17:38)
[2016-04-22] MEDS: Simethicone CHEW TAB* 80 MG PO PRN (17:38)
[2016-04-22] MEDS: Warfarin TAB(*) 6 MG PO SCH (17:38)
[2016-04-23] MEDS: Omeprazole CAP* 20 MG PO SCH (06:18)
[2016-04-23 06:39] LABS: Hematocrit 33 % (35-47); Hemoglobin 10.2 g/dl (12.0-16.0); Mean Corpuscular HGB Conc 31 g/dl (31-36); Mean Corpuscular Hemoglobin 28 pg (27-31); Mean Corpuscular Volume 88 fL (80-97); Mean Platelet Volume 7 um3 (7.4-10.4); Red Blood Count 3.67 10^6/ul (4.0-5.4); Red Cell Distribution Width 22 % (10.5-15); White Blood Count 9.4 10^3/ul (3.5-10.8)
[2016-04-23] MEDS: Loperamide CAP* 2 MG PO SCH ×3 (08:26→16:46)
[2016-04-23] MEDS: Potassium Chlor TAB* 20 MEQ TAB.ER PO SCH (08:27)
[2016-04-23] MEDS: Nystatin TOP POWDER* 15 GM BTL TOPICAL SCH ×2 (08:27→20:52)
[2016-04-23 11:42] LABS: Albumin 1.6 g/dL (3.2-5.2); Calcium 7.4 mg/dL (8.6-10.3); EGFR African American 382.9 (>60); EGFR Non-African American 297.7 (>60); Globulin 3.7 g/dL (2-4); Total Bilirubin 0.4 mg/dL (0.2-1.0); Total Protein 5.3 g/dL (6.4-8.9)
[2016-04-23] MEDS: Warfarin TAB(*) 6 MG PO SCH (17:35)
[2016-04-24] MEDS: Omeprazole CAP* 20 MG PO SCH (07:05)
[2016-04-24] MEDS: Loperamide CAP* 2 MG PO SCH ×3 (07:35→16:03)
[2016-04-24] MEDS: Potassium Chlor TAB* 20 MEQ TAB.ER PO SCH (07:36)
[2016-04-24] MEDS: Nystatin TOP POWDER* 15 GM BTL TOPICAL SCH ×2 (09:00→21:54)
--- NOTE | 2016-04-24 13:03 | PMRUTEAM ---
PMRU: Goals Current Status: Nursing: Current Status Skin Deviations [Right Lower Previous Access Point Abdomen] Skin Deviations [Right Lower Rash Buttocks] Skin Deviations [Abdomen] Incision,Other Skin Deviations [Left Arm] Bruise Skin Deviations [Groin] Other Skin Deviations [Bilateral Other Breast] Skin Deviations [Buttocks] Rash Skin Deviations [Left Back] Rash Skin Deviation Description [ BRONWYN Drain Right Lower Abdomen] Skin Deviation Description [ washed, skin prep in place Right Lower Buttocks] Skin Deviation Description [ Ileostomy - draining stool. Pt released gas. Abdomen] Colostomy Fistula - Dressing CDI Incision - Dressing CDI Skin Deviation Description [ popped. Cleaned, dressing applied. Left Arm] Skin Deviation Description [ Redness to groin, Nystatin powder apllied. Groin] Skin Deviation Description [ Nystatin powder applied. Bilateral Breast] Skin Deviation Description [ pink, blanching Buttocks] Skin Deviation Description [ skin protectent applied Left Back] Drain Type [Right Lower Bhupinder Abdomen] Drain Type [Right Lower Bhupinder Buttocks] Drain Type [Abdomen] None Bladder Current Status occasional incontinence Bowel Current Status illiostomy, colostomy Nutrition Current Status low fiber diet Medication Current Status takes meds whole with water Physical Therapy: Current Status Bed Mobility Assistance Min Assist,Mod Assist Transfer Moblility Assistance Total Assist,2 or More Person Assist Transfer/Bed Mobility Lexus Lift Recommended Devices Transfer Mobility Comment Sit to stand mod A x 1. Ambulation Assistance Contact Guard Assist,Min Assist,Unable Ambulation Assistive Devices Platform Walker Number of Feet Patient 20' x 1 and 8 ' x 2 in // bars Ambulated Ambulation Comment Pt. presents a short step reciprocal gait using theCardiac walker for 20' . Stairs Assistance Not Tested Curb Not Tested Occupational Therapy: Current Status Upper Body Dressing Supervision Upper Body Dressing Progress set-up Lower Body Dressing Max Asst Lower Body Dressing Progress total A in rolling Bathing Mod Assist Toileting Mod Assist Toileting Progress Can perform ostomy care given set-up. Needs max/ total A for bedpan/urine. Toilet Transfer 2 Person Assist Toilet Transfer Progress Just began 2 mod A. Has been using bedpan up until today. Shower Transfer 2 Person Assist Shower Transfer Progress LEXUS. Eating Independent Eating Progress set-up Rec Therapy: Current Status Summary of Assessment and RT assessment complete and pt. is aware of RT Clinical Impression services. Pt. has leisure material in her room and is open to continued leisure visits. Treatment Goals Pt. will engage in leisure activities while on the unit. Treatment Plan Provide RT services and encourage involvement. Social Work: Current Status Discharge Plan return home with home care svs and family support Potential for Family Training pt's is involved and supportive Anticipated Discharge Home Destination Discharge With home care svs and family support Nutrition: Current Status Monitoring Pt eating 70-80% of meals generally (100% of B today), and requested yesterday per nursing communication that the Ensures be d/c. Ileostomy draining liquid stool; no drainage from colostomy. No skin breakdown. Pt appears to be making progress with intake; will continue to follow and make recs as indicated. Goals: Physical Therapy: Initial Goals Bed Mobility Assistance Independent Transfer Mobility Assistance Independent Transfer/Bed Mobility Rolling Walker Recommended Devices Ambulation Independent Ambulation Recommended Devices Rolling Walker Ambulation Distance 150 Wheelchair Propulsion Ability Independent Wheelchair Distance (ft) 150 Stairs Assistance Independent Stair Recommended Devices Two Rails Number of Stairs 5 Physical Therapy: Updated Goals Bed Mobility Assistance Independent Transfer Mobility Assistance Independent Transfer/Bed Mobility Rolling Walker,Lexus Lift Recommended Devices Ambulation Assistance Independent Ambulation Assistive Devices Rolling Walker Ambulation Distance (ft) 150' Wheelchair Propulsion Ability Independent Wheelchair Distance (ft) 150' Stairs Assistance Independent Stairs Recommended Devices One Rail,Two Rails Number of Stairs 5 Occupational Therapy: Initial Goals Goals to be Completed in (Days 3-4 weeks ) Upper Body Bathing Routine Independent Lower Body Bathing Routine Modified Independent with Upper Body Dressing Routine Independent Lower Body Dressing Routine Modified Independent with Toilet Hygeine and Clothing Modified Independent with Management Routine Toilet Transfer Routine Modified Independent with Step-In Shower Transfer Modified Independent with Routine Functional Transfers for ADL Modified Independent with Grooming Routine Independent Feeding Routine Independent Nursing: Goals Bladder Goal 100 % continent Bowel Goal illiostomy, colostomy Nutrition Goal to eat 100% low fiber diet Medication Goal to know and identify meds Nutrition: Goals Intervention Goals 1. Oral intake at meals + supplement will support stable wt without unintentional wt loss 2. Midline abd wound will show evidence of healing 3. Bowel pattern will improve w/less watery consistency via ostomy Social Work: Goals Discharge Plan return home with home care svs and family support Potential for Family Training pt's is involved and supportive Anticipated Discharge Home Destination Discharge With home care svs and family support Care Plan: Care Plan ADL's - Improve/Maintain Start: 04/14/16 14:33 Freq: DAILY Status: Active Target: Activity Type Activity Date Activity User E-Sign Co-Sign Detail Recorded Client Recorded Date Recorded By Document 04/17/16 14:18 [id number] 04/17/16 14:18 [id number] 04/17/16 14:18 PMRU Outcome: ADL's/ADL Transfers Orders/Interventions Occupational Therapy Evaluation & Treatment Patient to receive OT 5x/wk for 60-120 Therex min/day Self Care Management Group Therapy UE/LE ADL's with Assist Yes ADL Transfers with Assist Yes Toileting: Transfers,Clothing Management Yes ,Hygeine w/Assist Progression Toward Outcome/Goals Progressing Communication-Improve/Maintain Start: 04/14/16 04:25 Freq: DAILY Status: Active Target: Activity Type Activity Date Activity User E-Sign Co-Sign Detail Recorded Client Recorded Date Recorded By Document 04/24/16 01:42 [id number] 04/24/16 01:43 [id number] 04/24/16 01:42 PMRU Outcome: Communication/Cognitive Status Outcome/Goals Makes Needs Known Effectively Progression Toward Outcomes/Goals Progressing Coping/Psych-Improve/Maintain Start: 04/14/16 04:25 Freq: DAILY Status: Complete Target: Activity Type Activity Date Activity User E-Sign Co-Sign Detail Recorded Client Recorded Date Recorded By Document 04/18/16 19:41 [id number] 04/18/16 19:41 [id number] 04/18/16 19:41 PMRU Outcome: Coping/Psychosocial Coping Outcome/Goals Verbalization of Acceptance of Rehab Admit Verbalization of Sense of Control Over Health Status Utilization of Appropriate Problem Solving Techniques Willingness to Participate in Treatment Plan and Basic Needs Utilization of Available Support Systems Absence of Destructive Behavior to Self/Others Psychosocial Outcome/Goals Maintain/ Improve Emotional Health Demonstrates Knowledge of Healthy Coping Mechanisms Available Cooperate/ Participate in Plan Progression Toward Outcome/Goals - Progressing Coping Progression Toward Outcome/Goals - Progressing Psychosocial Coping Outcome/Goals Met Demonstrates Understanding of Rehab Admit and Goal Setting Process Performs Actions to Reduce Fear and Anxiety Psychosocial Outcome/Goals Met Maintain/ Improved Emotional Health Demonstrated Knowledge of Healthy Coping Mechanisms Available DVT Prophylaxis- Improve/Maintain Start: 04/14/16 04:25 Freq: DAILY Status: Active Target: Activity Type Activity Date Activity User E-Sign Co-Sign Detail Recorded Client Recorded Date Recorded By Document 04/24/16 01:43 [id number] 04/24/16 01:43 [id number] 04/24/16 01:43 PMRU Outcome: DVT Prophylaxis Outcome/Goals Remains Free of DVT Complies with DVT Prophylaxis /Treatment Demonstrates Knowledge of DVT Prevention/ Treatment TEDS Stockings on Every AM, Off at HS Other Outcome/Goals Edwin wraps bilaterally Progression Toward Outcome/Goals Progressing Discharge Planning - Improve/Maintain Start: 04/14/16 04:25 Freq: DAILY Status: Active Target: Activity Type Activity Date Activity User E-Sign Co-Sign Detail Recorded Client Recorded Date Recorded By Document 04/24/16 01:42 [id number] 04/24/16 01:43 [id number] 04/24/16 01:42 PMRU Outcome: Discharge Planning Identify Patient Needs yes Update Patient Family No Outcome/Goals Demonstrates Understanding of Discharge Plan Progression Toward Outcome/Goals Progressing Education-Improve/Maintain Start: 04/14/16 04:25 Freq: DAILY Status: Active Target: Activity Type Activity Date Activity User E-Sign Co-Sign Detail Recorded Client Recorded Date Recorded By Document 04/24/16 01:43 [id number] 04/24/16 01:43 [id number] 04/24/16 01:43 PMRU Outcome: Education Outcome/Goals Demonstrate/ Verbalize Understanding of Written Discharge Instructions Demonstrates Skills Encourage Questions Progression Toward Outcome/Goals Progressing /GI-Improve/Maintain Start: 04/14/16 04:25 Freq: DAILY Status: Active Target: Activity Type Activity Date Activity User E-Sign Co-Sign Detail Recorded Client Recorded Date Recorded By Document 04/24/16 01:43 [id number] 04/24/16 01:43 [id number] 04/24/16 01:43 PMRU Outcome: Genitourinary/ Gastrointestinal Genitourinary- Outcome/Goals Maintain/ Achieve Urinary Continence Maintain/ Achieve Adequate Urinary Output Remain Free of Hospital- Acquired UTI Gastrointestinal-Outcome/Goals Maintain/ Achieve Bowel Regularity in Accordance with Pt's Baseline Remain Free of Emesis Prevent Constipation Laxatives as Ordered Other Outcome/Goals Pt released gas from her bag. Progression Toward Outcome/Goals - Progressing Progression Toward Outcome/Goals - GI Progressing Medication Administration Start: 04/14/16 04:25 Freq: DAILY Status: Active Target: Activity Type Activity Date Activity User E-Sign Co-Sign Detail Recorded Client Recorded Date Recorded By Document 04/24/16 01:43 [id number] 04/24/16 01:43 [id number] 04/24/16 01:43 PMRU Outcome: Medication Administration Assess Patient Knowledge/Teach Med Yes Education for all Meds Outcome/Goals Patient Independent with Medication Administration at Home Demonstrates Understanding Progression Towards Outcome/Goals Progressing Is Patient Going Home on Lovenox? No If Patient is Going Home on Lovenox, Who Unknown if pt Will Administer going home lovenox Mobility- Improve/Maintain Start: 04/14/16 04:25 Freq: DAILY Status: Active Target: Activity Type Activity Date Activity User E-Sign Co-Sign Detail Recorded Client Recorded Date Recorded By Document 04/20/16 12:22 [id number] 04/20/16 12:22 [id number] 04/20/16 12:22 PMRU Outcome: Mobility Physical Therapy Evaluation and Yes Treatment Activity OOB with Assistance Yes Assistance Yes Patient to be seen 5x/wk for 60-120 min/ Therex day for: Mobility Training Gait Training W/C Mobility Balance Outcome/Goals Maintain/ Achieve Baseline Mobility Status Improve Mobility Status Demonstrates Proper Use of Assistive Devices Free from Complications of Immobility Progression Toward Outcome/Goals Progressing Bed Mobility Yes: independent Transfers Yes: independent with rolling walker Gait x ft Yes: independent with rolling walker Up/Down Stairs Yes: independent up/ down 5 with bilateral rails Pain/Comfort- Improve/Maintain Start: 04/14/16 04:25 Freq: DAILY Status: Complete Target: Activity Type Activity Date Activity User E-Sign Co-Sign Detail Recorded Client Recorded Date Recorded By Document 04/16/16 10:00 [id number] 04/16/16 12:43 [id number] 04/16/16 10:00 PMRU Outcome: Pain/Comfort Outcome/Goals Demonstrates Knowledge and Use of Available Comfort Measures Achieves Acceptable Comfort/Pain Level as Determined by Patient/Condit Maintain Comfort Level Allowing Patient to Fully Participate in Rehab Progression Toward Outcome/Goals Progressing Outcome/Goals Met Demonstrates Knowledge and Use of Available Comfort Measures Achieves Acceptable Comfort/Pain Level as Determined by Patient/Condit Maintain Comfort Level Allowing Patient to Fully Participate in Rehab Safety- Improve/Maintain Start: 04/14/16 04:25 Freq: DAILY Status: Complete Target: Activity Type Activity Date Activity User E-Sign Co-Sign Detail Recorded Client Recorded Date Recorded By Document 04/16/16 10:00 [id number] 04/16/16 12:43 [id number] 04/16/16 10:00 PMRU Outcome: Safety Outcome/Goals Remain Free of Injury or Harm Cooperates with Safety Measures for Least Restrictive Environment Prevent Falls/ Injury Progression Toward Outcome/Goals Progressing Outcome/Goals Met Remain Free of Injury or Harm Cooperates with Safety Measures for Least Restrictive Environment Skin- Improve/Maintain Start: 04/14/16 04:25 Freq: DAILY Status: Active Target: Activity Type Activity Date Activity User E-Sign Co-Sign Detail Recorded Client Recorded Date Recorded By Document 04/24/16 01:44 [id number] 04/24/16 01:44 [id number] 04/24/16 01:44 PMRU Outcome: Skin Skin Risk Level High Skin Orders Dressing Change Teach Patient Air Mattress Spenco Boots Turn/Position q2hr While in Bed Outcome/Goals Maintain/ Improve Skin Intergrity Maintain/ Improve Wound Status Surgical Incisions Healing Progression Toward Outcome/Goals Progressing Outcome/Goals Met Comment Dressings CDI will continue to assess Medicine Note: Length of Stay: 3 1/2 weeks Anticipated Discharge Destination: Home Tentative Discharge Date: 05/18/16 Discharged to: Home
[2016-04-24] MEDS: Warfarin TAB(*) 6 MG PO SCH (17:20)
[2016-04-25] MEDS: Omeprazole CAP* 20 MG PO SCH (06:18)
[2016-04-25] MEDS: Potassium Chlor TAB* 20 MEQ TAB.ER PO SCH (08:38)
[2016-04-25] MEDS: Loperamide CAP* 2 MG PO SCH ×3 (08:38→17:13)
[2016-04-25] MEDS: Nystatin TOP POWDER* 15 GM BTL TOPICAL SCH ×2 (08:39→20:06)
[2016-04-25] MEDS: Warfarin TAB(*) 6 MG PO SCH (17:12)
[2016-04-26] MEDS: Omeprazole CAP* 20 MG PO SCH (05:50)
[2016-04-26] MEDS: Loperamide CAP* 2 MG PO SCH ×3 (08:30→15:43)
[2016-04-26] MEDS: Potassium Chlor TAB* 20 MEQ TAB.ER PO SCH (08:30)
[2016-04-26] MEDS: Nystatin TOP POWDER* 15 GM BTL TOPICAL SCH ×2 (08:31→21:13)
[2016-04-26] MEDS: Warfarin TAB(*) 6 MG PO SCH (17:30)
[2016-04-27] MEDS: Omeprazole CAP* 20 MG PO SCH (05:31)
[2016-04-27 07:33] LABS: Albumin 1.7 g/dL (3.2-5.2); BUN/Creatinine Ratio 27.3 (8-20); EGFR African American 423.3 (>60); EGFR Non-African American 329.2 (>60); Globulin 3.9 g/dL (2-4); Potassium 3.6 mmol/L (3.5-5.0); Total Bilirubin 0.4 mg/dL (0.2-1.0); Total Protein 5.6 g/dL (6.4-8.9)
[2016-04-27] MEDS: Nystatin TOP POWDER* 15 GM BTL TOPICAL SCH ×2 (08:19→21:40)
[2016-04-27] MEDS: Potassium Chlor TAB* 20 MEQ TAB.ER PO SCH (08:21)
[2016-04-27] MEDS: Loperamide CAP* 2 MG PO SCH ×3 (08:21→16:23)
--- NOTE | 2016-04-27 10:50 | PN ---
Progress Note - Progress Note SOAP: Subjective: Pt seen and examined. S/p Ex lap, diverting ileostomy, mucous fistula, and sigmoid colostomy and kirstie drainage at right thigh/buttock. Ileostomy is functioning well. Her appetite is improving and she is eating well.. She has had visitors and is walking with assistance. 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 Purulent drainage non-odorous from this area. pink granulation tissue with intact periwound skin. R thigh: kirstie in place; no erythema BMP reviewed. Assessment: s/p ex lap, multiple ostomies, Likely Crohn's disease. OPen sugical wound that represents draining abscess vs fistula. Plan: Encourage PO intake Kirstie drainage for 1 more week and then we will remove. aquacell to wound inferior to midline mucous fistula. will follow more regularly CBC, CRP today. CT scan if spikes fever.
[2016-04-27 14:23] LABS: C Reactive Protein 9.42 mg/L (< 5.00)
[2016-04-27 14:42] LABS: Hematocrit 38 % (35-47); Mean Corpuscular HGB Conc 32 g/dl (31-36); Mean Corpuscular Hemoglobin 28 pg (27-31); Mean Corpuscular Volume 89 fL (80-97); Mean Platelet Volume 6 um3 (7.4-10.4); Red Blood Count 4.25 10^6/ul (4.0-5.4); Red Cell Distribution Width 21 % (10.5-15)
[2016-04-27] MEDS: Warfarin TAB(*) 6 MG PO SCH (16:50)
[2016-04-27] MEDS: Acetaminophen TAB* 325 MG PO PRN (18:56)
[2016-04-28] MEDS: Omeprazole CAP* 20 MG PO SCH (06:15)
[2016-04-28] MEDS: Loperamide CAP* 2 MG PO SCH ×4 (07:59→16:55)
[2016-04-28] MEDS: Potassium Chlor TAB* 20 MEQ TAB.ER PO SCH (07:59)
[2016-04-28] MEDS: Nystatin TOP POWDER* 15 GM BTL TOPICAL SCH ×2 (10:01→22:16)
[2016-04-28 11:43] LABS: Hematocrit 36 % (35-47); Hemoglobin 11.4 g/dl (12.0-16.0); Mean Corpuscular HGB Conc 32 g/dl (31-36); Mean Corpuscular Hemoglobin 28 pg (27-31); Mean Corpuscular Volume 89 fL (80-97); Mean Platelet Volume 7 um3 (7.4-10.4); Red Blood Count 4.01 10^6/ul (4.0-5.4); Red Cell Distribution Width 20 % (10.5-15)
[2016-04-28 11:47] LABS: Budding Yeast Present (Absent); Urine Bacteria Absent (Absent); Urine Bilirubin Negative (Negative); Urine Glucose Negative (Negative); Urine Nitrite Negative (Negative)
[2016-04-28] MEDS ORDERED: Levofloxacin TAB* 500 MG PO ONE (13:53)
[2016-04-28] MEDS: Acetaminophen TAB* 325 MG PO PRN ×2 (15:17→22:16)
[2016-04-28] MEDS: Warfarin TAB(*) 6 MG PO SCH (17:59)
[2016-04-29] MEDS: Omeprazole CAP* 20 MG PO SCH (05:58)
[2016-04-29] MEDS: Acetaminophen TAB* 325 MG PO PRN ×2 (05:58→13:41)
[2016-04-29 07:35] LABS: ALT 33 U/L (7-52); Alkaline Phosphatase 347 U/L (34-104); BUN/Creatinine Ratio 18.5 (8-20); Blood Urea Nitrogen 5 mg/dL (6-24); CO2 Carbon Dioxide 24 mmol/L (22-32); Calcium 8.3 mg/dL (8.6-10.3); Chloride 100 mmol/L (101-111); EGFR African American 334.2 (>60); EGFR Non-African American 259.9 (>60); Globulin 4.2 g/dL (2-4); Glucose 89 mg/dL (70-100); Sodium 128 mmol/L (133-145); Total Protein 6.2 g/dL (6.4-8.9)
[2016-04-29] MEDS: Loperamide CAP* 2 MG PO SCH ×3 (08:36→16:50)
[2016-04-29] MEDS: Levofloxacin TAB* 250 MG PO SCH (08:36)
[2016-04-29] MEDS: Potassium Chlor TAB* 20 MEQ TAB.ER PO SCH (08:37)
[2016-04-29] MEDS: Nystatin TOP POWDER* 15 GM BTL TOPICAL SCH (09:33)
[2016-04-29 10:56] LABS: Hematocrit 38 % (35-47); Hemoglobin 11.7 g/dl (12.0-16.0); Mean Corpuscular HGB Conc 31 g/dl (31-36); Mean Corpuscular Hemoglobin 28 pg (27-31); Mean Corpuscular Volume 90 fL (80-97); Mean Platelet Volume 7 um3 (7.4-10.4); Red Cell Distribution Width 20 % (10.5-15); White Blood Count 9.3 10^3/ul (3.5-10.8)
[2016-04-29] MEDS: Warfarin TAB(*) 6 MG PO SCH (17:14)
[2016-04-30] MEDS: Acetaminophen TAB* 325 MG PO PRN ×3 (00:21→20:30)
[2016-04-30] MEDS: Omeprazole CAP* 20 MG PO SCH (06:08)
[2016-04-30 07:06] LABS: Hematocrit 37 % (35-47); Hemoglobin 11.5 g/dl (12.0-16.0); Mean Corpuscular HGB Conc 31 g/dl (31-36); Mean Corpuscular Hemoglobin 28 pg (27-31); Mean Corpuscular Volume 88 fL (80-97); Mean Platelet Volume 6 um3 (7.4-10.4); Red Blood Count 4.13 10^6/ul (4.0-5.4); Red Cell Distribution Width 20 % (10.5-15); White Blood Count 8.5 10^3/ul (3.5-10.8)
[2016-04-30] MEDS: Potassium Chlor TAB* 20 MEQ TAB.ER PO SCH (09:34)
[2016-04-30] MEDS: Levofloxacin TAB* 250 MG PO SCH (09:34)
[2016-04-30] MEDS: Loperamide CAP* 2 MG PO SCH ×3 (09:35→17:11)
[2016-04-30 09:50] LABS: Albumin 1.9 g/dL (3.2-5.2); BUN/Creatinine Ratio 20.7 (8-20); Calcium 7.9 mg/dL (8.6-10.3); EGFR African American 307.8 (>60); EGFR Non-African American 239.3 (>60); Globulin 3.8 g/dL (2-4); Potassium 3.9 mmol/L (3.5-5.0); Total Protein 5.7 g/dL (6.4-8.9)
[2016-04-30 10:18] LABS: Total Bilirubin 0.4 mg/dL (0.2-1.0)
[2016-04-30] MEDS: Warfarin TAB(*) 6 MG PO SCH (17:13)
[2016-05-01] MEDS: Acetaminophen TAB* 325 MG PO PRN ×2 (02:39→21:36)
[2016-05-01] MEDS: Omeprazole CAP* 20 MG PO SCH (05:29)
[2016-05-01] MEDS: Potassium Chlor TAB* 20 MEQ TAB.ER PO SCH (08:49)
[2016-05-01] MEDS: Loperamide CAP* 2 MG PO SCH ×3 (08:50→16:38)
[2016-05-01] MEDS: Levofloxacin TAB* 250 MG PO SCH (08:50)
--- NOTE | 2016-05-01 12:57 | PMRUTEAM ---
PMRU: Goals Current Status: Nursing: Current Status Skin Deviations [Right Lower Previous Access Point Abdomen] Skin Deviations [Right Lower Other Buttocks] Skin Deviations [Abdomen] Incision Skin Deviations [Left Arm] Bruise Skin Deviations [Groin] Other Skin Deviations [Bilateral Other Breast] Skin Deviations [Buttocks] Other Skin Deviations [Left Back] Rash Skin Deviation Description [ BRONWYN drain Right Lower Abdomen] Skin Deviation Description [ Piffard drain Right Lower Buttocks] Skin Deviation Description [ midline incision changed after shower, small Abdomen] amount of drainage noted. Skin Deviation Description [ popped. Cleaned, dressing applied. Left Arm] Skin Deviation Description [ Redness to groin, Nystatin powder apllied. Groin] Skin Deviation Description [ Nystatin powder applied. Bilateral Breast] Skin Deviation Description [ rednesss Buttocks] Skin Deviation Description [ skin protectent applied Left Back] Drain Type [Right Lower Piffard Abdomen] Drain Type [Right Lower Piffard Buttocks] Drain Type [Abdomen] None Bladder Current Status voiding using bedpan Bowel Current Status illiostomy, colostomy Nutrition Current Status low fiber diet Medication Current Status takes meds whole with water Physical Therapy: Current Status Bed Mobility Assistance Min Assist,Mod Assist Transfer Moblility Assistance Supervision,Contact Guard Assist Transfer/Bed Mobility Rolling Walker Recommended Devices Transfer Mobility Comment Sit to stand mod A x 1. Ambulation Assistance Supervision,Contact Guard Assist Ambulation Assistive Devices Rolling Walker Number of Feet Patient 90' Ambulated Ambulation Comment Pt. presents a reciprocal type gait pattern. Stairs Assistance Not Tested Curb Not Tested Manual Wheelchair Control/ Bilateral UE's Technique Wheelchair Propulsion Ability Standby Assistance Occupational Therapy: Current Status Upper Body Dressing Supervision Upper Body Dressing Progress set-up Lower Body Dressing Contact Guard Assist Lower Body Dressing Progress total A in rolling Bathing Min Assist Toileting Mod Assist Toileting Progress Can perform ostomy care given set-up. Needs max/ total A for bedpan/urine. Toilet Transfer Contact Guard Assist Toilet Transfer Progress Just began 2 mod A. Has been using bedpan up until today. Shower Transfer Total Assist Shower Transfer Progress HEIDY. Eating Independent Eating Progress set-up Rec Therapy: Current Status Summary of Assessment and RT assessment complete and pt. is aware of RT Clinical Impression services. Pt. has leisure material in her room and is open to continued leisure visits. Treatment Goals Pt. will engage in leisure activities while on the unit. Treatment Plan Provide RT services and encourage involvement. Social Work: Current Status Discharge Plan return home with home care svs and family support Potential for Family Training pt's family is involved and supportive Anticipated Discharge Home Destination Discharge With home care svs and family support Nutrition: Current Status Monitoring Intake improving but remains at nutrition risk due to lean weight, post-op status, open wound ( abscess vs fistula). Na improved. Note kirstie drain to continue for a few more days. Will continue to work with pt to maximize intake. Goals: Physical Therapy: Initial Goals Bed Mobility Assistance Independent Transfer Mobility Assistance Independent Transfer/Bed Mobility Rolling Walker Recommended Devices Ambulation Independent Ambulation Recommended Devices Rolling Walker Ambulation Distance 150 Wheelchair Propulsion Ability Independent Wheelchair Distance (ft) 150 Stairs Assistance Independent Stair Recommended Devices Two Rails Number of Stairs 5 Physical Therapy: Updated Goals Bed Mobility Assistance Independent Transfer Mobility Assistance Independent Transfer/Bed Mobility Rolling Walker,Heidy Lift Recommended Devices Ambulation Assistance Independent Ambulation Assistive Devices Rolling Walker Ambulation Distance (ft) 150' Wheelchair Propulsion Ability Independent Wheelchair Distance (ft) 150' Stairs Assistance Independent Stairs Recommended Devices One Rail,Two Rails Number of Stairs 5 Home Exercise Program Independent Assistance Occupational Therapy: Initial Goals Goals to be Completed in (Days 3-4 weeks ) Upper Body Bathing Routine Independent Lower Body Bathing Routine Modified Independent with Upper Body Dressing Routine Independent Lower Body Dressing Routine Modified Independent with Toilet Hygeine and Clothing Modified Independent with Management Routine Toilet Transfer Routine Modified Independent with Step-In Shower Transfer Modified Independent with Routine Functional Transfers for ADL Modified Independent with Grooming Routine Independent Feeding Routine Independent Nursing: Goals Bladder Goal independent Bowel Goal illiostomy, colostomy Nutrition Goal to eat 100% low fiber diet Medication Goal to know and identify meds Nutrition: Goals Intervention Goals 1. Oral intake at meals will support stable wt without unintentional wt loss 2. Midline abd wound will show evidence of healing 3. Bowel pattern will improve w/less watery consistency via ostomy Social Work: Goals Discharge Plan return home with home care svs and family support Potential for Family Training pt's family is involved and supportive Anticipated Discharge Home Destination Discharge With home care svs and family support Care Plan: Care Plan ADL's - Improve/Maintain Start: 04/14/16 14:33 Freq: DAILY Status: Active Target: Activity Type Activity Date Activity User E-Sign Co-Sign Detail Recorded Client Recorded Date Recorded By Document 04/30/16 15:00 [id number] [id number] 04/30/16 15:01 [id number] 04/30/16 15:00 PMRU Outcome: ADL's/ADL Transfers Orders/Interventions Occupational Therapy Evaluation & Treatment Patient to receive OT 5x/wk for 60-120 Therex min/day Self Care Management Group Therapy UE/LE ADL's with Assist Yes ADL Transfers with Assist Yes Toileting: Transfers,Clothing Management Yes ,Hygeine w/Assist Progression Toward Outcome/Goals Progressing Outcome/Goals Met Primary focus needs to be on STS. Communication-Improve/Maintain Start: 04/14/16 04:25 Freq: DAILY Status: Active Target: Activity Type Activity Date Activity User E-Sign Co-Sign Detail Recorded Client Recorded Date Recorded By Document 05/01/16 09:59 [id number] 05/01/16 10:00 [id number] 05/01/16 09:59 PMRU Outcome: Communication/Cognitive Status Outcome/Goals Makes Needs Known Effectively Progression Toward Outcomes/Goals Progressing Coping/Psych-Improve/Maintain Start: 04/14/16 04:25 Freq: DAILY Status: Complete Target: Activity Type Activity Date Activity User E-Sign Co-Sign Detail Recorded Client Recorded Date Recorded By Document 04/18/16 19:41 [id number] [id number] 04/18/16 19:41 [id number] 04/18/16 19:41 PMRU Outcome: Coping/Psychosocial Coping Outcome/Goals Verbalization of Acceptance of Rehab Admit Verbalization of Sense of Control Over Health Status Utilization of Appropriate Problem Solving Techniques Willingness to Participate in Treatment Plan and Basic Needs Utilization of Available Support Systems Absence of Destructive Behavior to Self/Others Psychosocial Outcome/Goals Maintain/ Improve Emotional Health Demonstrates Knowledge of Healthy Coping Mechanisms Available Cooperate/ Participate in Plan Progression Toward Outcome/Goals - Progressing Coping Progression Toward Outcome/Goals - Progressing Psychosocial Coping Outcome/Goals Met Demonstrates Understanding of Rehab Admit and Goal Setting Process Performs Actions to Reduce Fear and Anxiety Psychosocial Outcome/Goals Met Maintain/ Improved Emotional Health Demonstrated Knowledge of Healthy Coping Mechanisms Available DVT Prophylaxis- Improve/Maintain Start: 04/14/16 04:25 Freq: DAILY Status: Complete Target: Activity Type Activity Date Activity User E-Sign Co-Sign Detail Recorded Client Recorded Date Recorded By Document 04/29/16 08:00 [id number] [email or web address] 04/29/16 12:36 [id number] 04/29/16 08:00 PMRU Outcome: DVT Prophylaxis Outcome/Goals Remains Free of DVT Complies with DVT Prophylaxis /Treatment Demonstrates Knowledge of DVT Prevention/ Treatment TEDS Stockings on Every AM, Off at HS Other Outcome/Goals Teds Outcome/Goals Met Remains Free of DVT TEDS Stockings on Every AM, Off at HS Discharge Planning - Improve/Maintain Start: 04/14/16 04:25 Freq: DAILY Status: Active Target: Activity Type Activity Date Activity User E-Sign Co-Sign Detail Recorded Client Recorded Date Recorded By Document 05/01/16 09:59 [id number] 05/01/16 10:00 [id number] 05/01/16 09:59 PMRU Outcome: Discharge Planning Identify Patient Needs yes Update Patient Family No Outcome/Goals Demonstrates Understanding of Discharge Plan Progression Toward Outcome/Goals Progressing Education-Improve/Maintain Start: 04/14/16 04:25 Freq: DAILY Status: Active Target: Activity Type Activity Date Activity User E-Sign Co-Sign Detail Recorded Client Recorded Date Recorded By Document 05/01/16 09:59 [id number] 05/01/16 10:00 [id number] 05/01/16 09:59 PMRU Outcome: Education Outcome/Goals Demonstrate/ Verbalize Understanding of Written Discharge Instructions Demonstrates Skills Encourage Questions Progression Toward Outcome/Goals Progressing /GI-Improve/Maintain Start: 04/14/16 04:25 Freq: DAILY Status: Active Target: Activity Type Activity Date Activity User E-Sign Co-Sign Detail Recorded Client Recorded Date Recorded By Document 05/01/16 09:59 [id number] 05/01/16 10:00 [id number] 05/01/16 09:59 PMRU Outcome: Genitourinary/ Gastrointestinal Genitourinary- Outcome/Goals Maintain/ Achieve Urinary Continence Maintain/ Achieve Adequate Urinary Output Remain Free of Hospital- Acquired UTI Gastrointestinal-Outcome/Goals Maintain/ Achieve Bowel Regularity in Accordance with Pt's Baseline Remain Free of Emesis Prevent Constipation Laxatives as Ordered Other Outcome/Goals paient able to empty own ileostomy bag Progression Toward Outcome/Goals - Progressing Progression Toward Outcome/Goals - GI Progressing Medication Administration Start: 04/14/16 04:25 Freq: DAILY Status: Active Target: Activity Type Activity Date Activity User E-Sign Co-Sign Detail Recorded Client Recorded Date Recorded By Document 05/01/16 09:59 [id number] [email or web address] 05/01/16 10:00 [id number] 05/01/16 09:59 PMRU Outcome: Medication Administration Assess Patient Knowledge/Teach Med Yes Education for all Meds Outcome/Goals Patient Independent with Medication Administration at Home Demonstrates Understanding Progression Towards Outcome/Goals Progressing Is Patient Going Home on Lovenox? No Mobility- Improve/Maintain Start: 04/14/16 04:25 Freq: DAILY Status: Active Target: Activity Type Activity Date Activity User E-Sign Co-Sign Detail Recorded Client Recorded Date Recorded By Document 05/01/16 12:20 [id number] [email or web address] 05/01/16 12:21 [id number] 05/01/16 12:20 PMRU Outcome: Mobility Physical Therapy Evaluation and Yes Treatment Activity OOB with Assistance Yes Assistance Yes Patient to be seen 5x/wk for 60-120 min/ Therex day for: Mobility Training Gait Training W/C Mobility Balance Outcome/Goals Maintain/ Achieve Baseline Mobility Status Improve Mobility Status Demonstrates Proper Use of Assistive Devices Free from Complications of Immobility Progression Toward Outcome/Goals Progressing Bed Mobility Yes: independent Transfers Yes: independent with rolling walker Gait x ft Yes: independent with rolling walker Up/Down Stairs Yes: independent up/ down 5 with bilateral rails Pain/Comfort- Improve/Maintain Start: 04/14/16 04:25 Freq: DAILY Status: Complete Target: Activity Type Activity Date Activity User E-Sign Co-Sign Detail Recorded Client Recorded Date Recorded By Document 04/24/16 07:15 [id number] [email or web address] 04/24/16 13:21 [id number] 04/24/16 07:15 PMRU Outcome: Pain/Comfort Outcome/Goals Demonstrates Knowledge and Use of Available Comfort Measures Progression Toward Outcome/Goals Progressing Outcome/Goals Met Comment no pain Safety- Improve/Maintain Start: 04/14/16 04:25 Freq: DAILY Status: Complete Target: Activity Type Activity Date Activity User E-Sign Co-Sign Detail Recorded Client Recorded Date Recorded By Document 04/24/16 07:15 [id number] [email or web address] 04/24/16 13:21 [id number] 04/24/16 07:15 PMRU Outcome: Safety Outcome/Goals Remain Free of Injury or Harm Cooperates with Safety Measures for Least Restrictive Environment Prevent Falls/ Injury Progression Toward Outcome/Goals Progressing Skin- Improve/Maintain Start: 04/14/16 04:25 Freq: DAILY Status: Active Target: Activity Type Activity Date Activity User E-Sign Co-Sign Detail Recorded Client Recorded Date Recorded By Document 05/01/16 09:59 [id number] [email or web address] 05/01/16 10:00 [id number] 05/01/16 09:59 PMRU Outcome: Skin Skin Risk Level High Skin Orders Dressing Change Teach Patient Air Mattress Spenco Boots Turn/Position q2hr While in Bed Dressing Change Comments dressing changed after shower Outcome/Goals Maintain/ Improve Skin Intergrity Free from Decubitus Maintain/ Improve Wound Status Surgical Incisions Healing Progression Toward Outcome/Goals Progressing Outcome/Goals Met Comment Dressings CDI will continue to assess Medicine Note: Length of Stay: 2 1/2 weeks Anticipated Discharge Destination: Home Tentative Discharge Date: 05/18/16 Discharged to: Home
[2016-05-01] MEDS: Warfarin TAB(*) 6 MG PO SCH (17:17)
[2016-05-02] MEDS: Omeprazole CAP* 20 MG PO SCH (05:53)
[2016-05-02] MEDS: Levofloxacin TAB* 250 MG PO SCH (08:28)
[2016-05-02] MEDS: Loperamide CAP* 2 MG PO SCH ×3 (08:28→16:26)
[2016-05-02] MEDS: Potassium Chlor TAB* 20 MEQ TAB.ER PO SCH (08:28)
[2016-05-02] MEDS: Acetaminophen TAB* 325 MG PO PRN ×2 (14:18→20:11)
[2016-05-02] MEDS: Warfarin TAB(*) 6 MG PO SCH (17:08)
--- NOTE | 2016-05-02 18:15 | PN ---
Progress Note - Progress Note SOAP: Subjective: Pt seen and examined. S/p Ex lap, diverting ileostomy, mucous fistula, and sigmoid colostomy and kirstie drainage at right thigh/buttock. Ileostomy is functioning well. Her appetite is improving and she is eating well.. She has had visitors and is walking with assistance. 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 Purulent drainage non-odorous from this area. pink granulation tissue with intact periwound skin. R thigh: kirstie removed. 1/4 plain packing placed. Wound was probed and is large extending arounf the ischial bone. Assessment: s/p ex lap, multiple ostomies, OPen abdominal surgical wound that represents draining abscess vs fistula. Plan: Encourage PO intake Packing at perineum and right thigh QOD aquacell to wound inferior to midline mucous fistula. will follow more regularly CT scan if spikes fever.
[2016-05-03] MEDS: Acetaminophen TAB* 325 MG PO PRN ×2 (06:11→18:47)
[2016-05-03] MEDS: Omeprazole CAP* 20 MG PO SCH (06:11)
[2016-05-03] MEDS: Potassium Chlor TAB* 20 MEQ TAB.ER PO SCH (08:35)
[2016-05-03] MEDS: Loperamide CAP* 2 MG PO SCH ×3 (08:35→17:09)
[2016-05-03] MEDS: Levofloxacin TAB* 250 MG PO SCH (08:35)
[2016-05-03] MEDS: Warfarin TAB(*) 6 MG PO SCH (17:08)
[2016-05-04] MEDS: Omeprazole CAP* 20 MG PO SCH (06:25)
[2016-05-04] MEDS: Acetaminophen TAB* 325 MG PO PRN ×2 (06:25→14:29)
[2016-05-04] MEDS: Levofloxacin TAB* 250 MG PO SCH (09:03)
[2016-05-04] MEDS: Loperamide CAP* 2 MG PO SCH ×3 (09:04→16:51)
[2016-05-04] MEDS: Potassium Chlor TAB* 20 MEQ TAB.ER PO SCH (09:04)
--- NOTE | 2016-05-04 16:03 | PN ---
Progress Note - Progress Note SOAP: Subjective: Doing very well, denies any c/o. No changes since last visit. Objective: Awake and alert, in NAD Vitals reviewed, afebrile. Right posterior thigh with healing fistula tract, no discharge noted, packing gauze changed. Abdominal midline open tract with scanty yellowish drainage noted, no erythema or tenderness. Aquacell dressing changed. 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 Plan: Discussed with her continuing wound care as Dr. Vasquez planned. Will be seen next Saturday for wound dressing change.
[2016-05-04] MEDS: Warfarin TAB(*) 6 MG PO SCH (16:51)
[2016-05-05] MEDS: Acetaminophen TAB* 325 MG PO PRN ×2 (00:06→21:36)
[2016-05-05] MEDS: Omeprazole CAP* 20 MG PO SCH (06:25)
[2016-05-05 08:49] LABS: Hematocrit 38 % (35-47); Hemoglobin 12.3 g/dl (12.0-16.0); Mean Corpuscular HGB Conc 33 g/dl (31-36); Mean Corpuscular Hemoglobin 28 pg (27-31); Mean Corpuscular Volume 87 fL (80-97); Mean Platelet Volume 6 um3 (7.4-10.4); Red Blood Count 4.36 10^6/ul (4.0-5.4); Red Cell Distribution Width 18 % (10.5-15)
[2016-05-05] MEDS: Loperamide CAP* 2 MG PO SCH ×3 (08:58→17:19)
[2016-05-05] MEDS: Potassium Chlor TAB* 20 MEQ TAB.ER PO SCH (08:58)
[2016-05-05] MEDS: Warfarin TAB(*) 4 MG PO SCH (17:19)
[2016-05-06] MEDS: Omeprazole CAP* 20 MG PO SCH (06:23)
[2016-05-06] MEDS: Loperamide CAP* 2 MG PO SCH ×3 (09:04→17:38)
[2016-05-06] MEDS: Potassium Chlor TAB* 20 MEQ TAB.ER PO SCH (09:04)
[2016-05-06 09:14] LABS: Hematocrit 36 % (35-47); Hemoglobin 11.7 g/dl (12.0-16.0); Mean Corpuscular HGB Conc 33 g/dl (31-36); Mean Corpuscular Hemoglobin 28 pg (27-31); Mean Corpuscular Volume 86 fL (80-97); Mean Platelet Volume 6 um3 (7.4-10.4); Red Blood Count 4.16 10^6/ul (4.0-5.4); Red Cell Distribution Width 18 % (10.5-15); White Blood Count 10.2 10^3/ul (3.5-10.8)
[2016-05-06 09:50] LABS: Albumin 2.3 g/dL (3.2-5.2); BUN/Creatinine Ratio 20.7 (8-20); Calcium 7.9 mg/dL (8.6-10.3); EGFR African American 307.8 (>60); EGFR Non-African American 239.3 (>60); Potassium 3.5 mmol/L (3.5-5.0); Total Bilirubin 0.4 mg/dL (0.2-1.0); Total Protein 6.3 g/dL (6.4-8.9)
[2016-05-06] MEDS: Acetaminophen TAB* 325 MG PO PRN (14:43)
[2016-05-06] MEDS: Warfarin TAB(*) 4 MG PO SCH (17:40)
[2016-05-07] MEDS: Omeprazole CAP* 20 MG PO SCH (06:25)
[2016-05-07 07:39] LABS: Albumin 2.4 g/dL (3.2-5.2); BUN/Creatinine Ratio 26.9 (8-20); Calcium 8.1 mg/dL (8.6-10.3); EGFR African American 349.1 (>60); EGFR Non-African American 271.4 (>60); Potassium 3.7 mmol/L (3.5-5.0); Total Bilirubin 0.4 mg/dL (0.2-1.0); Total Protein 6.4 g/dL (6.4-8.9)
[2016-05-07] MEDS: Loperamide CAP* 2 MG PO SCH ×3 (08:06→16:09)
[2016-05-07] MEDS: Potassium Chlor TAB* 20 MEQ TAB.ER PO SCH (08:07)
[2016-05-07] MEDS: Acetaminophen TAB* 325 MG PO PRN ×2 (08:08→20:58)
[2016-05-07] MEDS: Warfarin TAB(*) 5 MG PO SCH (17:16)
[2016-05-08] MEDS: Acetaminophen TAB* 325 MG PO PRN ×3 (06:20→22:17)
[2016-05-08] MEDS: Omeprazole CAP* 20 MG PO SCH (06:20)
[2016-05-08] MEDS: Potassium Chlor TAB* 20 MEQ TAB.ER PO SCH (08:08)
[2016-05-08] MEDS: Loperamide CAP* 2 MG PO SCH ×3 (08:08→16:53)
--- NOTE | 2016-05-08 12:52 | PMRUTEAM ---
PMRU: Goals Current Status: Nursing: Current Status Skin Deviations [Right Lower Wound Abdomen] Skin Deviations [Right Lower Wound Buttocks] Skin Deviations [Abdomen] Incision,Wound Skin Deviations [Left Arm] Bruise Skin Deviations [Groin] Other Skin Deviations [Bilateral Other Breast] Skin Deviations [Buttocks] Wound Skin Deviations [Left Back] Rash Skin Deviation Description [ ileostomy- intact draining liquid brownish/ Right Lower Abdomen] greenish colored draninage Skin Deviation Description [ kirstie Right Lower Buttocks] Skin Deviation Description [ ileostomy - pt drained Abdomen] colostomy - no draining Fistula and midline incision - CDI Skin Deviation Description [ popped. Cleaned, dressing applied. Left Arm] Skin Deviation Description [ Redness to groin, Nystatin powder apllied. Groin] Skin Deviation Description [ Nystatin powder applied. Bilateral Breast] Skin Deviation Description [ rednesss Buttocks] Skin Deviation Description [ skin protectent applied Left Back] Drain Type [Right Lower [place] Abdomen] Drain Type [Right Lower [place] Buttocks] Drain Type [Abdomen] None Bladder Current Status voiding using bedpan Bowel Current Status illiostomy, colostomy Nutrition Current Status low fiber diet Medication Current Status takes meds whole with water Physical Therapy: Current Status Bed Mobility Assistance Supervision,Not Tested Transfer Moblility Assistance Supervision Transfer/Bed Mobility None,Rolling Walker Recommended Devices Transfer Mobility Comment Pt. is able to perform a SPT with or without an assistive device S x 1. Ambulation Assistance Supervision Ambulation Assistive Devices Rolling Walker Number of Feet Patient 150' Ambulated Ambulation Comment Pt. presents a reciprocal type gait pattern. Stairs Assistance Supervision Stairs Recommended Devices Two Rails Number of Stairs 5 Curb Not Tested Manual Wheelchair Control/ Bilateral UE's Technique Wheelchair Propulsion Ability Standby Assistance Wheelchair Distance (ft) 150' Occupational Therapy: Current Status Upper Body Dressing Supervision Upper Body Dressing Progress set-up Lower Body Dressing Supervision Lower Body Dressing Progress total A in rolling Bathing Supervision Toileting Supervision Toileting Progress Can perform ostomy care given set-up. Needs max/ total A for bedpan/urine. Toilet Transfer Supervision Toilet Transfer Progress Just began 2 mod A. Has been using bedpan up until today. Shower Transfer Supervision Shower Transfer Progress HEIDY. Eating Independent Eating Progress set-up Rec Therapy: Current Status Summary of Assessment and RT assessment complete and pt. is aware of RT Clinical Impression services. Pt. has leisure material in her room and is open to continued leisure visits. Treatment Goals Pt. will engage in leisure activities while on the unit. Treatment Plan Provide RT services and encourage involvement. Social Work: Current Status Discharge Plan return home with home care svs and family support Potential for Family Training pt's family is involved and supportive Anticipated Discharge Home Destination Discharge With home care svs and family support Nutrition: Current Status Monitoring Intake improving to 80-100% of meals, but remains at nutrition risk due to lean weight, post-op status, open wound (abscess vs fistula). Na WNL since 04/30 (133 today). Note kirstie drain to continue for a few more days. Ensure supplements d/c. Right posterior thigh with healing fistula; no dishcharge; scant drainage to midline abd wound per progress notes today. Goals: Physical Therapy: Initial Goals Bed Mobility Assistance Independent Transfer Mobility Assistance Independent Transfer/Bed Mobility Rolling Walker Recommended Devices Ambulation Independent Ambulation Recommended Devices Rolling Walker Ambulation Distance 150 Wheelchair Propulsion Ability Independent Wheelchair Distance (ft) 150 Stairs Assistance Independent Stair Recommended Devices Two Rails Number of Stairs 5 Physical Therapy: Updated Goals Bed Mobility Assistance Independent Transfer Mobility Assistance Independent Transfer/Bed Mobility Rolling Walker,Heidy Lift Recommended Devices Ambulation Assistance Independent Ambulation Assistive Devices Rolling Walker Ambulation Distance (ft) 150' Wheelchair Propulsion Ability Independent Wheelchair Distance (ft) 150' Stairs Assistance Independent Stairs Recommended Devices One Rail,Two Rails Number of Stairs 5 Home Exercise Program Independent Assistance Occupational Therapy: Initial Goals Goals to be Completed in (Days 3-4 weeks ) Upper Body Bathing Routine Independent Lower Body Bathing Routine Modified Independent with Upper Body Dressing Routine Independent Lower Body Dressing Routine Modified Independent with Toilet Hygeine and Clothing Modified Independent with Management Routine Toilet Transfer Routine Modified Independent with Step-In Shower Transfer Modified Independent with Routine Functional Transfers for ADL Modified Independent with Grooming Routine Independent Feeding Routine Independent Nursing: Goals Bladder Goal independent Bowel Goal illiostomy, colostomy Nutrition Goal to eat 100% low fiber diet Medication Goal to know and identify meds Nutrition: Goals Intervention Goals 1. Oral intake at meals will support weight gain 2. Midline abd wound will show evidence of healing 3. Bowel pattern will improve w/less watery consistency via ostomy Social Work: Goals Discharge Plan return home with home care svs and family support Potential for Family Training pt's family is involved and supportive Anticipated Discharge Home Destination Discharge With home care svs and family support Care Plan: Care Plan ADL's - Improve/Maintain Start: 04/14/16 14:33 Freq: DAILY Status: Active Target: Activity Type Activity Date Activity User E-Sign Co-Sign Detail Recorded Client Recorded Date Recorded By Document 05/07/16 09:18 [id number] 05/07/16 09:18 [id number] 05/07/16 09:18 PMRU Outcome: ADL's/ADL Transfers Orders/Interventions Occupational Therapy Evaluation & Treatment Patient to receive OT 5x/wk for 60-120 Therex min/day Self Care Management Group Therapy UE/LE ADL's with Assist Yes ADL Transfers with Assist Yes Toileting: Transfers,Clothing Management Yes ,Hygeine w/Assist Progression Toward Outcome/Goals Progressing Outcome/Goals Met Primary focus needs to be on STS. Communication-Improve/Maintain Start: 04/14/16 04:25 Freq: DAILY Status: Active Target: Activity Type Activity Date Activity User E-Sign Co-Sign Detail Recorded Client Recorded Date Recorded By Document 05/08/16 00:33 [id number] 05/08/16 00:34 [id number] 05/08/16 00:33 PMRU Outcome: Communication/Cognitive Status Outcome/Goals Makes Needs Known Effectively Progression Toward Outcomes/Goals Progressing Coping/Psych-Improve/Maintain Start: 04/14/16 04:25 Freq: DAILY Status: Complete Target: Activity Type Activity Date Activity User E-Sign Co-Sign Detail Recorded Client Recorded Date Recorded By Document 04/18/16 19:41 [id number] 04/18/16 19:41 [id number] 04/18/16 19:41 PMRU Outcome: Coping/Psychosocial Coping Outcome/Goals Verbalization of Acceptance of Rehab Admit Verbalization of Sense of Control Over Health Status Utilization of Appropriate Problem Solving Techniques Willingness to Participate in Treatment Plan and Basic Needs Utilization of Available Support Systems Absence of Destructive Behavior to Self/Others Psychosocial Outcome/Goals Maintain/ Improve Emotional Health Demonstrates Knowledge of Healthy Coping Mechanisms Available Cooperate/ Participate in Plan Progression Toward Outcome/Goals - Progressing Coping Progression Toward Outcome/Goals - Progressing Psychosocial Coping Outcome/Goals Met Demonstrates Understanding of Rehab Admit and Goal Setting Process Performs Actions to Reduce Fear and Anxiety Psychosocial Outcome/Goals Met Maintain/ Improved Emotional Health Demonstrated Knowledge of Healthy Coping Mechanisms Available DVT Prophylaxis- Improve/Maintain Start: 04/14/16 04:25 Freq: DAILY Status: Complete Target: Activity Type Activity Date Activity User E-Sign Co-Sign Detail Recorded Client Recorded Date Recorded By Document 04/29/16 08:00 [id number] 04/29/16 12:36 [id number] 04/29/16 08:00 PMRU Outcome: DVT Prophylaxis Outcome/Goals Remains Free of DVT Complies with DVT Prophylaxis /Treatment Demonstrates Knowledge of DVT Prevention/ Treatment TEDS Stockings on Every AM, Off at HS Other Outcome/Goals Teds Outcome/Goals Met Remains Free of DVT TEDS Stockings on Every AM, Off at HS Discharge Planning - Improve/Maintain Start: 04/14/16 04:25 Freq: DAILY Status: Active Target: Activity Type Activity Date Activity User E-Sign Co-Sign Detail Recorded Client Recorded Date Recorded By Document 05/08/16 00:33 [id number] 05/08/16 00:34 [id number] 05/08/16 00:33 PMRU Outcome: Discharge Planning Identify Patient Needs yes Update Patient Family No Outcome/Goals Demonstrates Understanding of Discharge Plan Progression Toward Outcome/Goals Progressing Education-Improve/Maintain Start: 04/14/16 04:25 Freq: DAILY Status: Active Target: Activity Type Activity Date Activity User E-Sign Co-Sign Detail Recorded Client Recorded Date Recorded By Document 05/08/16 08:00 [id number] 05/08/16 11:13 [id number] 05/08/16 08:00 PMRU Outcome: Education Outcome/Goals Demonstrate/ Verbalize Understanding of Written Discharge Instructions Demonstrates Skills Encourage Questions Progression Toward Outcome/Goals Progressing /GI-Improve/Maintain Start: 04/14/16 04:25 Freq: DAILY Status: Active Target: Activity Type Activity Date Activity User E-Sign Co-Sign Detail Recorded Client Recorded Date Recorded By Document 05/08/16 08:00 [id number] 05/08/16 11:13 [id number] 05/08/16 08:00 PMRU Outcome: Genitourinary/ Gastrointestinal Genitourinary- Outcome/Goals Maintain/ Achieve Urinary Continence Maintain/ Achieve Adequate Urinary Output Remain Free of Hospital- Acquired UTI Gastrointestinal-Outcome/Goals Maintain/ Achieve Bowel Regularity in Accordance with Pt's Baseline Remain Free of Emesis Prevent Constipation Laxatives as Ordered Progression Toward Outcome/Goals - Progressing Progression Toward Outcome/Goals - GI Progressing Medication Administration Start: 04/14/16 04:25 Freq: DAILY Status: Active Target: Activity Type Activity Date Activity User E-Sign Co-Sign Detail Recorded Client Recorded Date Recorded By Document 05/08/16 08:00 [id number] 05/08/16 11:13 [id number] 05/08/16 08:00 PMRU Outcome: Medication Administration Assess Patient Knowledge/Teach Med Yes Education for all Meds Outcome/Goals Patient Independent with Medication Administration at Home Demonstrates Understanding Progression Towards Outcome/Goals Progressing Is Patient Going Home on Lovenox? No If Patient is Going Home on Lovenox, Who unknown Will Administer Mobility- Improve/Maintain Start: 04/14/16 04:25 Freq: DAILY Status: Active Target: Activity Type Activity Date Activity User E-Sign Co-Sign Detail Recorded Client Recorded Date Recorded By Document 05/07/16 11:09 [id number] [email or web address] 05/07/16 11:09 [id number] 05/07/16 11:09 PMRU Outcome: Mobility Physical Therapy Evaluation and Yes Treatment Activity OOB with Assistance Yes Assistance Yes Patient to be seen 5x/wk for 60-120 min/ Therex day for: Mobility Training Gait Training W/C Mobility Balance Outcome/Goals Maintain/ Achieve Baseline Mobility Status Improve Mobility Status Demonstrates Proper Use of Assistive Devices Free from Complications of Immobility Progression Toward Outcome/Goals Progressing Bed Mobility Yes: independent Transfers Yes: independent with rolling walker Gait x ft Yes: independent with rolling walker Up/Down Stairs Yes: independent up/ down 5 with bilateral rails Pain/Comfort- Improve/Maintain Start: 04/14/16 04:25 Freq: DAILY Status: Complete Target: Activity Type Activity Date Activity User E-Sign Co-Sign Detail Recorded Client Recorded Date Recorded By Document 05/05/16 04:50 [id number] 05/05/16 04:51 [id number] 05/05/16 04:50 PMRU Outcome: Pain/Comfort Outcome/Goals Demonstrates Knowledge and Use of Available Comfort Measures Achieves Acceptable Comfort/Pain Level as Determined by Patient/Condit Other Outcome/Goals Patient requests tylenol for 4/ 10 pain in leg d/at drain removal. Reassessed at 0 /10. Progression Toward Outcome/Goals Progressing Safety- Improve/Maintain Start: 04/14/16 04:25 Freq: DAILY Status: Complete Target: Activity Type Activity Date Activity User E-Sign Co-Sign Detail Recorded Client Recorded Date Recorded By Document 04/24/16 07:15 [id number] 04/24/16 13:21 [id number] 04/24/16 07:15 PMRU Outcome: Safety Outcome/Goals Remain Free of Injury or Harm Cooperates with Safety Measures for Least Restrictive Environment Prevent Falls/ Injury Progression Toward Outcome/Goals Progressing Skin- Improve/Maintain Start: 04/14/16 04:25 Freq: DAILY Status: Active Target: Activity Type Activity Date Activity User E-Sign Co-Sign Detail Recorded Client Recorded Date Recorded By Document 05/08/16 08:00 [id number] 05/08/16 11:13 [id number] 05/08/16 08:00 PMRU Outcome: Skin Skin Risk Level High Skin Orders Dressing Change Teach Patient Air Mattress Spenco Boots Turn/Position q2hr While in Bed Outcome/Goals Maintain/ Improve Skin Intergrity Free from Decubitus Maintain/ Improve Wound Status Surgical Incisions Healing Progression Toward Outcome/Goals Progressing Medicine Note: Length of Stay: 10 days Anticipated Discharge Destination: Home Tentative Discharge Date: 05/18/16 Discharged to: Home
[2016-05-08] MEDS: Warfarin TAB(*) 5 MG PO SCH (16:55)
[2016-05-09] MEDS: Omeprazole CAP* 20 MG PO SCH (06:20)
[2016-05-09] MEDS: Potassium Chlor TAB* 20 MEQ TAB.ER PO SCH (08:43)
[2016-05-09] MEDS: Loperamide CAP* 2 MG PO SCH ×3 (08:43→15:41)
[2016-05-09] MEDS ORDERED: Iohexol 300* (CONTRAST) 10 ML SDV IV ONE (15:45)
[2016-05-09] MEDS: Warfarin TAB(*) 5 MG PO SCH (16:58)
--- NOTE | 2016-05-09 18:57 | RAD ---
INDICATION: Status post end ileostomy, drainage from wound. COMPARISON: Comparison is made with a prior CT of the abdomen and pelvis from March 15, 2016. Correlation is also made with a study from March 08, 2016. TECHNIQUE: A CT scan of the abdomen and pelvis was performed with intravenous and oral contrast following intravenous injection of 67 ml of Omnipaque 300 nonionic contrast. Contiguous axial sections were obtained from the lung bases through the symphysis pubis. Images were reconstructed in the coronal and sagittal planes. FINDINGS: The lung bases are clear. No pleural effusion is present. The liver is mildly enlarged. There are couple small ill-defined hypodense hepatic lesions. One is located in the posterior segment of the right hepatic lobe and the other is located in the inferior aspect of the right hepatic lobe. These measure up to 0.7 cm in size and are too small to characterize by CT although are both visualized on the study from March 08, 2016. The spleen is normal in size without focal abnormality. The gallbladder appears contracted. No calcified gallstones are seen. The pancreas appears to be within normal limits. The kidneys and adrenal glands are normal in size. No hydronephrosis is seen. There are several small subcentimeter hypodense renal lesions most consistent with cysts. The aorta is normal in caliber and demonstrates homogeneous contrast opacification. No significant enlarged retroperitoneal lymph nodes are seen. There are extensive postsurgical changes. There appear to be enterostomies in the right and left lower quadrants. The stomach, small and large bowel appear nondistended. There is mild stranding in the mesenteric fat. There is a cylindrical fluid collection present in the anterior inferior abdomen and pelvis at the level of the umbilicus. This measures 4.8 x 1.0 x 0.6 cm in size and is suspicious for a small abscess less likely nonopacified small bowel. There is stranding in the presacral fat most consistent with postsurgical changes. There is air present on the right side lateral to this region. There is also air more inferior to this region extending into the right ischial rectal fossa. These findings are either consistent with recent postsurgical change or possibly secondary to fistulas. There is also more prominent air present posteriorly superior to the right gluteal region. Recommend clinical correlation. The uterus is anteverted and normal in size. There are prominent periuterine veins. There is a small amount of free intraperitoneal fluid within the abdomen and pelvis. No free intraperitoneal air is seen. No significant focal osseous abnormality is seen. IMPRESSION: 1. EXTENSIVE POSTSURGICAL CHANGES. 2. SMALL CYLINDRICAL FLUID COLLECTION PRESENT IN THE ANTERIOR LOWER ABDOMEN SUSPICIOUS FOR AN ABSCESS LESS LIKELY NONOPACIFIED SMALL BOWEL. 3. THERE IS AIR TRACKING LATERAL TO THE SACROCOCCYGEAL SPINE ON THE RIGHT SIDE AND ALSO MORE INFERIORLY IN THE RIGHT ISCHIAL RECTAL FOSSA CONSISTENT WITH EITHER POSTSURGICAL CHANGES OR FISTULAS. THERE IS ALSO A LARGER AIR COLLECTION SUPERIOR TO THE RIGHT GLUTEAL REGION RECOMMEND CLINICAL CORRELATION. 4. SMALL AMOUNT OF ASCITES.
[2016-05-09] MEDS: Simethicone CHEW TAB* 80 MG PO PRN (22:06)
[2016-05-10] MEDS: Omeprazole CAP* 20 MG PO SCH (06:15)
[2016-05-10] MEDS: Acetaminophen TAB* 325 MG PO PRN (06:15)
[2016-05-10] MEDS: Potassium Chlor TAB* 20 MEQ TAB.ER PO SCH (09:30)
[2016-05-10] MEDS: diPHENhydraMINE PO* 25 MG PO SCH ×3 (09:30→21:15)
[2016-05-10] MEDS: Loperamide CAP* 2 MG PO SCH ×3 (09:30→16:45)
[2016-05-10 11:14] LABS: Albumin 2.4 g/dL (3.2-5.2); BUN/Creatinine Ratio 21.1 (8-20); Calcium 7.9 mg/dL (8.6-10.3); EGFR African American 225.3 (>60); EGFR Non-African American 175.2 (>60); Globulin 3.8 g/dL (2-4); Total Protein 6.2 g/dL (6.4-8.9)
[2016-05-10 11:19] LABS: Potassium 4.1 mmol/L (3.5-5.0)
[2016-05-10 11:54] LABS: Hematocrit 42 % (35-47); Hemoglobin 13.5 g/dl (12.0-16.0); Mean Corpuscular HGB Conc 32 g/dl (31-36); Mean Corpuscular Hemoglobin 28 pg (27-31); Mean Corpuscular Volume 87 fL (80-97); Mean Platelet Volume 7 um3 (7.4-10.4); Red Blood Count 4.86 10^6/ul (4.0-5.4); Red Cell Distribution Width 18 % (10.5-15); White Blood Count 20.1 10^3/ul (3.5-10.8)
[2016-05-10] MEDS ORDERED: predniSONE TAB* 20 MG PO ONE (11:56)
[2016-05-10] MEDS ORDERED: Piperac/Tazob 3.375 gm in NS* 3.375 GM/100 ML BAG IVPB ONE (13:00)
[2016-05-10] MEDS: Warfarin TAB(*) 5 MG PO SCH (17:17)
[2016-05-10] MEDS: Piperac/Tazob 3.375 gm in NS* 3.375 GM/100 ML BAG IVPB SCH (18:35)
[2016-05-10] MEDS: Famotidine TAB* 20 MG PO SCH (21:16)
[2016-05-11] MEDS: Piperac/Tazob 3.375 gm in NS* 3.375 GM/100 ML BAG IVPB SCH ×3 (00:37→17:03)
[2016-05-11] MEDS: diPHENhydraMINE PO* 25 MG PO SCH ×4 (03:38→20:16)
[2016-05-11] MEDS: Omeprazole CAP* 20 MG PO SCH (05:46)
[2016-05-11] MEDS ORDERED: predniSONE TAB* 20 MG PO ONE (09:00)
[2016-05-11] MEDS: Loperamide CAP* 2 MG PO SCH ×3 (09:24→17:02)
[2016-05-11] MEDS: Famotidine TAB* 20 MG PO SCH ×2 (09:25→20:16)
[2016-05-11] MEDS: Potassium Chlor TAB* 20 MEQ TAB.ER PO SCH ×2 (09:25→20:16)
[2016-05-11 12:57] LABS: Hematocrit 38 % (35-47); Hemoglobin 12.3 g/dl (12.0-16.0); Mean Corpuscular HGB Conc 33 g/dl (31-36); Mean Corpuscular Hemoglobin 28 pg (27-31); Mean Corpuscular Volume 86 fL (80-97); Mean Platelet Volume 6 um3 (7.4-10.4); Red Blood Count 4.37 10^6/ul (4.0-5.4); Red Cell Distribution Width 17 % (10.5-15); White Blood Count 14.4 10^3/ul (3.5-10.8)
[2016-05-11 13:13] LABS: BUN/Creatinine Ratio 23.1 (8-20); Potassium 3.1 mmol/L (3.5-5.0)
[2016-05-11 13:14] LABS: Calcium 7.9 mg/dL (8.6-10.3); EGFR African American 218.6 (>60)
[2016-05-11] MEDS: Warfarin TAB(*) 5 MG PO SCH (17:14)
[2016-05-12] MEDS: Piperac/Tazob 3.375 gm in NS* 3.375 GM/100 ML BAG IVPB SCH ×3 (01:07→16:39)
[2016-05-12] MEDS: diPHENhydraMINE PO* 25 MG PO SCH ×4 (02:45→20:53)
[2016-05-12] MEDS: NS 0.9% 1000 ML* 1,000 ML IV SCH (02:45)
[2016-05-12] MEDS: Omeprazole CAP* 20 MG PO SCH (05:25)
[2016-05-12] MEDS: Famotidine TAB* 20 MG PO SCH ×2 (08:49→20:53)
[2016-05-12] MEDS: Loperamide CAP* 2 MG PO SCH ×3 (08:49→16:06)
[2016-05-12] MEDS: Potassium Chlor TAB* 20 MEQ TAB.ER PO SCH ×2 (08:50→20:53)
[2016-05-12] MEDS ORDERED: predniSONE TAB* 10 MG PO ONE (09:00)
[2016-05-12] MEDS: Warfarin TAB(*) 5 MG PO SCH (16:58)
--- NOTE | 2016-05-12 19:49 | RAD ---
Indication: Evaluate for right subclavian vein access. Real-time sonography of the right subclavian vein and right axillary vein was performed. The right subclavian vein demonstrates normal phasic flow. The right axillary vein demonstrates normal phasic flow. IMPRESSION: Right subclavian vein and right axillary veins appear patent.
[2016-05-13] MEDS: Piperac/Tazob 3.375 gm in NS* 3.375 GM/100 ML BAG IVPB SCH ×3 (00:41→17:11)
[2016-05-13] MEDS: diPHENhydraMINE PO* 25 MG PO SCH ×2 (02:45→08:33)
[2016-05-13] MEDS: NS 0.9% 1000 ML* 1,000 ML IV SCH (02:46)
[2016-05-13] MEDS: Omeprazole CAP* 20 MG PO SCH (05:59)
[2016-05-13] MEDS: Potassium Chlor TAB* 20 MEQ TAB.ER PO SCH ×2 (08:33→21:13)
[2016-05-13] MEDS: Loperamide CAP* 2 MG PO SCH ×3 (08:34→17:22)
[2016-05-13 08:51] LABS: Hematocrit 36 % (35-47); Hemoglobin 11.6 g/dl (12.0-16.0); Mean Corpuscular HGB Conc 32 g/dl (31-36); Mean Corpuscular Hemoglobin 28 pg (27-31); Mean Corpuscular Volume 86 fL (80-97); Mean Platelet Volume 6 um3 (7.4-10.4); Red Blood Count 4.16 10^6/ul (4.0-5.4); Red Cell Distribution Width 17 % (10.5-15); White Blood Count 11.8 10^3/ul (3.5-10.8)
[2016-05-13] MEDS ORDERED: predniSONE TAB* 10 MG PO ONE (09:00)
[2016-05-13] MEDS ORDERED: diPHENhydraMINE PO* 50 MG PO PRN (14:57)
[2016-05-13] MEDS ORDERED: diPHENhydraMINE PO* 25 MG PO PRN (15:33)
[2016-05-13] MEDS: Warfarin TAB(*) 5 MG PO SCH (17:11)
[2016-05-14] MEDS: Piperac/Tazob 3.375 gm in NS* 3.375 GM/100 ML BAG IVPB SCH ×3 (01:02→17:15)
[2016-05-14] MEDS: NS 0.9% 1000 ML* 1,000 ML IV SCH (02:35)
[2016-05-14] MEDS: Omeprazole CAP* 20 MG PO SCH (05:52)
[2016-05-14] MEDS ORDERED: predniSONE TAB* 5 MG PO ONE (09:00)
[2016-05-14] MEDS: Loperamide CAP* 2 MG PO SCH ×3 (09:07→16:03)
[2016-05-14] MEDS: Potassium Chlor TAB* 20 MEQ TAB.ER PO SCH ×2 (09:07→20:53)
[2016-05-14 09:44] LABS: ALT 22 U/L (7-52); AST 20 U/L (13-39); Albumin 2.5 g/dL (3.2-5.2); Alkaline Phosphatase 173 U/L (34-104); Anion Gap 4 mmol/L (2-11); BUN/Creatinine Ratio 16.7 (8-20); Blood Urea Nitrogen 6 mg/dL (6-24); CO2 Carbon Dioxide 26 mmol/L (22-32); Calcium 7.6 mg/dL (8.6-10.3); Chloride 106 mmol/L (101-111); EGFR African American 239.8 (>60); EGFR Non-African American 186.5 (>60); Globulin 3.6 g/dL (2-4); Glucose 76 mg/dL (70-100); Potassium 2.9 mmol/L (3.5-5.0); Sodium 136 mmol/L (133-145); Total Protein 6.1 g/dL (6.4-8.9)
[2016-05-14 13:50] LABS: Magnesium < 0.5 mg/dL (1.9-2.7)
[2016-05-14] MEDS ORDERED: Magnesium Oxide TAB* 400 MG PO ONE (13:57)
[2016-05-14] MEDS: KCL 20 MEQ/100 ML IVPREMIX* 20 MEQ/100 ML BAG IV SCH ×2 (15:07→16:06)
[2016-05-14] MEDS ORDERED: Potassium Chlor TAB* 20 MEQ TAB.ER PO ONE (16:42)
[2016-05-14] MEDS ORDERED: Warfarin TAB(*) 4 MG PO SCH (17:00)
[2016-05-14] MEDS: Magnesium Oxide TAB* 400 MG PO SCH (20:54)
[2016-05-15] MEDS: Piperac/Tazob 3.375 gm in NS* 3.375 GM/100 ML BAG IVPB SCH ×2 (01:26→09:13)
[2016-05-15] MEDS: Omeprazole CAP* 20 MG PO SCH (05:48)
[2016-05-15 05:56] VITALS: BP 114/68
--- NOTE | 2016-05-15 07:15 | CONS ---
CONSULTATION REPORT: DATE OF CONSULTATION: 05/14/16 REQUESTING PHYSICIAN: Dr. Vasquez. CONSULTING SERVICE: Infectious Disease. REASON FOR CONSULTATION: Abdominal abscess, fistula. IMPRESSION: 1. Small-bowel obstruction and chronic enterocutaneous fistula, had a resection of the ileal colon with anastomosis, takedown of enterocutaneous fistula, February 2016, complicated by a large bowel perforation, respiratory failure requiring intubation, transferred to [facility], had another laparotomy, takedown of ileocolonic anastomosis, diverting left colostomy, and transverse mucous fistula with end- ileostomy. 2. She has a chronic right posterior thigh fistula, a midline incision fistula where there has been cutaneous dehiscence, and recently developed leukocytosis. CT scan showed a fluid collection in the anterior inferior abdomen and pelvis , level of the umbilicus, 4.8 x 1 x 0.6 cm, suspicious for abscess. She was started on Zosyn with resolution of her white count and the foul drainage that had developed from that site. She is maintained on Zosyn since then, continued to improve. 3. Malnutrition. 4. IODINATED CONTRAST DYE ALLERGY, which caused erythroderma. RECOMMENDATIONS: 1. Agree with Zosyn 3.375 g IV every 8 hours. We will plan on 14 to 21 more days of IV antibiotics. I have written orders for outpatient infusion with weekly CBC, CMP, and CRP, and pending on her clinical course, may change to oral antibiotics versus stopping therapy. 2. She will have outpatient surgical followup as well. HISTORY OF PRESENT ILLNESS: This is a 55-year-old woman with a chronic right posterior thigh fistula, who was admitted with a small-bowel obstruction here in February, had an exploratory laparotomy and resection of ileal colon and anastomosis, which was complicated by acute hypoxemic respiratory failure requiring mechanical ventilation. She was eventually transferred to [facility] where she had another exploratory laparotomy, found to have a perforation of rectosigmoid colon, had a diverting left colostomy, transverse mucous fistula with end- ileostomy. Right posterior thigh drain where the fistula tract was. She was treated with broad-spectrum antibiotics initially Zosyn, Cipro, and Flagyl. Then, [place] [facility] was [place]. She came [facility] the [facility] here with weakness and malnutrition, which have both improved. Her stay had been complicated by a right upper extremity PICC-associated DVT for which she has been anticoagulated for a few weeks now and no persistent thrombus on most recent ultrasound. She had some foul drainage from a dehisced midline incision of the abdomen as well as leukocytosis of 20,000, thrombocytosis 550. She was started on Zosyn. A CT scan was done which showed the fluid collection which has continued to drain and actually that has improved. Her white count is down to 11,000 as of yesterday. Platelets down to 460. She has no longer had foul drainage, she has occasional serous drainage, and she has ileostomy output. The pathology report from her small bowel showed chronic active enteritis involving the terminal ileum and cecum and was described as suggestive of an inflammatory bowel disease, though there were no granulomata. She was apparently not felt to have inflammatory bowel disease based on the pathology results in [place]. She denies abdominal pain. She has liquid stools through her ostomy. The drainage has decreased. She has had no fevers, chills, or sweats. Her oral intake is increasing. PAST MEDICAL HISTORY: 1. Small bowel obstruction, February 2016, with an ileocolonic resection, primary anastomosis complicated by a rectal leak and then an exploratory laparotomy at [facility] with takedown of ileocolonic anastomosis, diverting left colostomy, transverse mucosal fistula with an end-ileostomy. 2. Chronic right posterior thigh cutaneous fistula. 3. Status post . ALLERGIES: CONTRAST DYE. MEDICATIONS: 1. Tylenol. 2. Bisacodyl suppository. 3. Docusate. 4. Loperamide. 5. Omeprazole. 6. Zosyn 3.375 mg IV every 8 hours. 7. Senna. 8. Warfarin. SOCIAL HISTORY: Lives outside of [place]. No travel. Has been hospitalized since February. FAMILY HISTORY: No inflammatory bowel disease. REVIEW OF SYSTEMS: All negative on 12-point review of systems except as noted above. PHYSICAL EXAM: Vital Signs: Temperature is 36.7, heart rate 90, respiratory rate 18, blood pressure 107/66, O2 sat 100% on room air. In general, she is awake, not in distress. Neurologically, she is oriented x3. Follows all commands. HEENT: There is no conjunctival hemorrhage. Oropharynx without lesions. Neck is supple without nuchal rigidity. Lymph Nodes: There is no cervical, supraclavicular, inguinal, axillary, or epitrochlear lymphadenopathy. Heart is regular and tachycardic without murmurs. Lungs are clear to auscultation bilaterally. Abdomen is soft, nontender, without bowel sounds present. Midline incision has partially dehisced. There is a proximal wound with some mucoid drainage. There is a more proximal sinus tract. There is a left-sided mucous fistula and right-sided ileostomy with air and liquid stool in the bag. Skin: There is no rash or splinter hemorrhages. Musculoskeletal: There is no spine tenderness to palpation or joint synovitis. LABORATORY DATA: White blood cell count 11, hemoglobin 11, platelets 467. Creatinine is 0.3. Magnesium 0. Please see impressions and recommendations outlined above, which I have discussed with Dr. Moncada. Thanks for asking me to see Ms. Clifton in consultation. [id number] #: [id number] MTDD
[2016-05-15 07:40] LABS: BUN/Creatinine Ratio 14.3 (8-20); Calcium 7.4 mg/dL (8.6-10.3); EGFR African American 247.7 (>60); EGFR Non-African American 192.6 (>60); Potassium 3.2 mmol/L (3.5-5.0)
[2016-05-15] MEDS: Potassium Chlor TAB* 20 MEQ TAB.ER PO SCH (08:02)
[2016-05-15] MEDS: Loperamide CAP* 2 MG PO SCH ×2 (08:02→11:36)
[2016-05-15] MEDS: Magnesium Oxide TAB* 400 MG PO SCH (08:02)
--- NOTE | 2016-05-16 09:18 | DS ---
CC: Dr. New Allison. DISCHARGE SUMMARY: DATE OF ADMISSION: 04/13/16. DATE OF DISCHARGE: 05/15/16 DISCHARGE DIAGNOSES: 1. Bowel perforation with septic shock. 2. Status post ileostomy. 3. Status post colostomy. 4. DVT, left arm, PICC line related. 5. Severe malnutrition. 6. Hypomagnesemia 6. Urinary Tract Infection HISTORY OF PRESENT ILLNESS AND HOSPITAL COURSE: For a complete history of the events leading up to her rehab stay, please see the history and physical dictated by me on April 13, 2016. While on the rehab unit, initially Ernestina was quite weak. She also had very little appetite. She was eating mainly Ensure drinks. She, as time went on, however, began to eat better and began to feel stronger. A surgery consult was done with Dr. Cornelius Vasquez regarding the wounds on her abdomen. He recommended changing her wound care slightly. She did develop a urinary tract infection with Pseudomonas while on the rehab unit. She received a 5- day course of Levaquin with no adverse effects. The patient had her Corcoran drain removed from her right thigh fistula by Dr. Vasquez. She continued to seem to improve. By May 04, 2016, however, her drainage started to have a malodorous odor. She did not have any signs of sepsis, however. She had a spike in her C- reactive protein to 20. A CAT scan of her abdomen and pelvis was ordered. She had the CAT scan of her abdomen and pelvis on May 09. However, at 5 a.m. on the morning of May 10, the patient developed a rash over her body with erythema. Benadryl was ordered and later prednisone was added. Also, she was put on IV antibiotics after the CAT scan showed an abscess. The patient was put on a rapid prednisone taper and seem to improve dramatically as far as the reaction to the IV contrast dye. She also improved medically with the IV antibiotics. Her white count was 20.1 on May 10. By May 11 it had fallen to 14.4, and by May 13 was down to 11.8. The patient was also diagnosed with hypomagnesemia while on the rehab unit. Her potassium was persistently low, despite potassium supplementation. The magnesium level was drawn on May 14 which showed a magnesium of less than 0.5. As she was asymptomatic, she was sent home with potassium and magnesium supplementation. The patient continued on anticoagulation during her time on the rehab unit. She will continue with anticoagulation while the PICC line is in place. The patient did have an infectious disease consult done by Dr. Brito on May 14. He recommended two weeks of IV Zosyn. A PICC line was placed April. The patient, at that point, was ready was for discharge. She was sent home on May 15, 2016. DISCHARGE DIET: Low residue. DISCHARGE MEDICATIONS: Include: 1. Imodium 2 mg 3 times a day before meals. 2. Magnesium oxide 400 mg twice daily. 3. Omeprazole 20 mg daily. 4. Potassium chloride 20 mEq two tablets twice a day. 5. Coumadin 4 mg daily or as directed. 6. Zosyn 3.375 gm IV Q 8 hours SERVICES AFTER DISCHARGE: Through [id number], she will have home nursing, home physical therapy. She will also have home IV antibiotics with [facility]. FOLLOWUP: The patient will follow up with her new primary care doctor, Dr. New Allison, May 17, 2016 at 9 a.m. She will also follow up with Dr. Cornelius Vasquez at [facility] in about a month, and follow up with Dr. Thomas Brito in about two weeks. [id number]/[facility] #: [id number] [facility]
== END 2016-05-15 14:30 | disposition home health service (06) | DRG 254 ==
LOC: PMRU 15:08
PROVIDERS: ADMIT Physical Medicine & Rehabilitation; ATTEND Physical Medicine & Rehabilitation
PROC: F07Z5ZZ Bed Mobility Treatment (ICD-10-PCS; principal; 2016-04-13)
PROC: F07Z9ZZ Gait Training/Functional Ambulation Treatment (ICD-10-PCS; 2016-04-13)
PROC: F07Z8ZZ Transfer Training Treatment (ICD-10-PCS; 2016-04-13)
PROC: F07Z4ZZ Wheelchair Mobility Treatment (ICD-10-PCS; 2016-04-13)
PROC: F08Z0ZZ Bathing/Showering Techniques Treatment (ICD-10-PCS; 2016-04-13)
PROC: F08Z1ZZ Dressing Techniques Treatment (ICD-10-PCS; 2016-04-13)
PROC: F08Z3ZZ Feeding/Eating Treatment (ICD-10-PCS; 2016-04-13)
PROC: 02HV33Z Insertion of Infusion Device into Superior Vena Cava, Percutaneous Approach (ICD-10-PCS; 2016-05-15)
DX: K63.1 Perforation of intestine (nontraumatic) (principal); E43 Unspecified severe protein-calorie malnutrition; I82.622 Acute embolism and thrombosis of deep veins of left upper extremity; E83.42 Hypomagnesemia; K50.90 Crohn's disease, unspecified, without complications; N39.0 Urinary tract infection, site not specified; Z68.1 Body mass index [BMI] 19.9 or less, adult; B96.5 Pseudomonas (aeruginosa) (mallei) (pseudomallei) as the cause of diseases classified elsewhere; K60.3 Anal fistula; T81.30XD Disruption of wound, unspecified, subsequent encounter; Y83.9 Surgical procedure, unspecified as the cause of abnormal reaction of the patient, or of later complication, without mention of misadventure at the time of the procedure; L27.1 Localized skin eruption due to drugs and medicaments taken internally; T50.8X5A Adverse effect of diagnostic agents, initial encounter; Z93.2 Ileostomy status; Z93.3 Colostomy status; Z88.1 Allergy status to other antibiotic agents; Z79.01 Long term (current) use of anticoagulants; Z79.899 Other long term (current) drug therapy; E87.6 Hypokalemia; Y92.230 Patient room in hospital as the place of occurrence of the external cause
CPT/HCPCS: 36415; 74177; 80048; 80053; 81003; 81015; 83735; 85025; 85610; 86140; 87070; 87077; 87086; 87186; 87205; A9270-GY; J1650; J2543; J3480; J7512; Q9967